=== PATIENT | female | born 1955 | race Caucasian/White ===

== ENCOUNTER 2020-05-02 12:10 | Emergency (ER) | payer BC, SELFPAY ==
[2020-05-02 13:03] VITALS: BP 207/98; PULSE 100; RESP 20; TEMP 37.1; O2SAT 96; BMI 32.3
--- NOTE | 2020-05-02 15:24 | ED.SOB ---
HPI - SOB/Dyspnea General Chief Complaint: Dyspnea Stated Complaint: SOB Time Seen by Provider: 05/02/20 15:24 Source: patient Mode of arrival: ambulatory Limitations: no limitations History of Present Illness MD elicited complaint: shortness of breath Pertinent past history: other (renal failure) Onset (ago): day(s) (today) Context: medication noncompliance (has not had her metoprolol 50mg daily for 1+ week - no Rx in pharmacy, her BPs have been in 200s) Timing: constant Severity: moderate Exacerbating factors: nothing Relieving factors: rest Known history of: diabetes Associated symptoms: denies other symptoms Treatment prior to arrival: none Related Data Allergies Allergy/AdvReac Type Severity Reaction Status Date / Time No Known Allergies Allergy Verified 05/02/20 13:09 [No Known Allergies*] Review of Systems Review of Systems: Constitutional : No Fever, No Chills ENT/Mouth : No sore throat, No Rhinorrhea, No Swallowing Difficulty Eyes: No Eye Pain, No Swelling, No Redness Cardiovascular : No Chest Pain, positive SOB, No Orthopnea, no Edema Respiratory : No Cough, No Sputum, No Wheezing, positive dyspnea Gastrointestinal : No Nausea, No Vomiting, No Diarrhea, No abdominal Pain, No Hematochezia, No Melena Genitourinary : No Dysuria, No Urinary Frequency, No Hematuria Musculoskeletal : No joint pain, No Myalgias Skin : No Skin Lesions, No rash Neuro : No Weakness, No Numbness, No Dizziness, No Headache Psych : No Anxiety/Panic, No Depression Heme/Lymph: No Bruising, No Lymphadenopathy Endocrine : No Polyuria, No Polydipsia All other systems reviewed and are negative [facility] Past Medical History Attestation statement: The following information was validated with the patient. Medical History CAD (coronary artery disease) Diabetes HTN (hypertension) Hyperlipidemia Renal failure Social History Social History (Updated 05/02/20 @ 15:37 by Nohemi Page DO) Smoking Status: Never smoker Use of substances other than those prescribed or required for medical reasons: No Advance Directives: No Advance Directives Information Provided: Yes Physical Exam Vital Signs: Vital Signs: Vital Signs Temp Pulse Resp BP Pulse Ox 05/02/20 16:47 164/83 H 05/02/20 16:31 162/77 H 05/02/20 15:59 94 170/89 H 05/02/20 15:41 97.9 F 99 16 175/88 H 96 05/02/20 13:03 98.7 F 100 20 207/98 H 96 Body Mass Index 32.3 Appearance: Alert. Oriented X3. No acute distress. Eyes: Pupils equal, round and reactive to light. ENT: Pharynx normal. Neck: Normal inspection. Neck supple. CVS: Normal heart rate and rhythm. Pulses normal. Respiratory: No respiratory distress. Breath sounds decreased bases Abdomen: Soft and nontender. Skin: Skin warm and dry. Normal skin color. Normal skin turgor. Extremities: No lower extremity edema. No calf ttp Neuro: Oriented X 3. No motor deficit. No sensory deficit. Course Course Course Narrative: trop lower than baseline, feels better, has anxiety from patients yelling in ED wants to go home has metoprolol at home MDM - SOB/Dyspnea MDM Narrative Medical decision making narrative: 65 yo female with hx of CAD s/p stent, renal failure on HD T S, HTN, HPL s/p HD today off of metoprolol x 1+ week here with dyspnea and elevated BPs at this time will obtain labs, CXR, EKG, IV labetalol Lab Data Result diagrams: 05/02/20 15:53 05/02/20 15:53 Labs: Lab Results 05/02/20 05/02/20 05/02/20 Range/Units 15:53 15:53 15:53 WBC 11.1 H (4.8-10.8) X10*3/uL RBC 3.17 L (4.20-5.50) X10*6/uL Hgb 10.3 L (12.0-16.0) g/dl Hct 30.8 L (37-47) % MCV 97.2 (80-98) fL MCH 32.5 (27.0-33.0) pg MCHC 33.4 (31.0-35.0) g/dl RDW 14.2 (11.0-16.0) % Plt Count 165 (160-400) X10*3/uL MPV 8.8 L (9.4-12.3) fL Immature Gran % (Auto) 0.5 H (0.0-0.4) % Neut % (Auto) 75.5 H (45-73) % Lymph % (Auto) 13.1 L (20-40) % [place] % (Auto) 6.7 (2-11) % Eos % (Auto) 3.9 (0-4) % Baso % (Auto) 0.3 (0-2) % Lymph # (Auto) 1.5 (1.2-4.9) X10*3/uL [place] # (Auto) 0.7 (0.1-1.2) X10*3/uL Eos # (Auto) 0.4 (0.0-0.4) X10*3/uL Baso # (Auto) 0.0 (0.0-0.2) X10*3/uL Abs Immat Gran (auto) 0.05 H (0.00-0.03) X10*3/uL Absolute Neuts (auto) 8.4 H (2.0-8.3) X10*3/uL Absolute Nucleated RBC 0.000 (0.0-0.012) X10*3/uL Nucleated RBC % (auto) 0.0 (0.0-0.2) /100WBC Hold Blue Top SEE NOTE Sodium 137 (135-145) mmol/L Potassium 3.6 (3.3-5.1) mmol/l Chloride 101 (96-108) mmol/L Carbon Dioxide 23 (22-29) mmol/L Anion Gap 17 (12-20) BUN 29 H (9-16) mg/dL Creatinine 3.21 H (0.5-1.4) mg/dL Estim Creat Clear Calc 14.5 Estimated GFR 14 Random Glucose 142 H (60-115) mg/dL Calcium 8.3 L (8.4-10.2) mg/dL Magnesium 1.9 (1.6-2.6) mg/dL Troponin I High Sens (<3.5-17.0) ng/L 05/02/20 Range/Units 15:53 WBC (4.8-10.8) X10*3/uL RBC (4.20-5.50) X10*6/uL Hgb (12.0-16.0) g/dl Hct (37-47) % MCV (80-98) fL MCH (27.0-33.0) pg MCHC (31.0-35.0) g/dl RDW (11.0-16.0) % Plt Count (160-400) X10*3/uL MPV (9.4-12.3) fL Immature Gran % (Auto) (0.0-0.4) % Neut % (Auto) (45-73) % Lymph % (Auto) (20-40) % [place] % (Auto) (2-11) % Eos % (Auto) (0-4) % Baso % (Auto) (0-2) % Lymph # (Auto) (1.2-4.9) X10*3/uL [place] # (Auto) (0.1-1.2) X10*3/uL Eos # (Auto) (0.0-0.4) X10*3/uL Baso # (Auto) (0.0-0.2) X10*3/uL Abs Immat Gran (auto) (0.00-0.03) X10*3/uL Absolute Neuts (auto) (2.0-8.3) X10*3/uL Absolute Nucleated RBC (0.0-0.012) X10*3/uL Nucleated RBC % (auto) (0.0-0.2) /100WBC Hold Blue Top Sodium (135-145) mmol/L Potassium (3.3-5.1) mmol/l Chloride (96-108) mmol/L Carbon Dioxide (22-29) mmol/L Anion Gap (12-20) BUN (9-16) mg/dL Creatinine (0.5-1.4) mg/dL Estim Creat Clear Calc Estimated GFR Random Glucose (60-115) mg/dL Calcium (8.4-10.2) mg/dL Magnesium (1.6-2.6) mg/dL Troponin I High Sens 10.3 (<3.5-17.0) ng/L ECG Data Attestation: I personally reviewed and interpreted this ECG as follows: ECG interpretation date: 05/02/20 ECG interpretation time: 15:48 Interpretation: Rate: 92 Rhythm: NSR [place]: left Normal P waves. Normal GHADA. Normal QRS complex. ST T wave : normal qTC: prolonged prior studies: no acute ischemia The study has been interpreted contemporaneously by me. . Discharge Plan Discharge Clinical Impression: HTN (hypertension), Acute dyspnea Patient Disposition: Home, Self-Care Instructions: Chronic Hypertension (ED), Dyspnea (ED) Additional Instructions: return to ED for any worsening symptoms or concerns Referrals: Betsy Goldstein MD [Primary Care Provider] - 2 days (if not better)
--- NOTE | 2020-05-02 15:25 | ECG_ITS ---
Test Reason : DYSPNEA Blood Pressure : / mmHG Vent. Rate : 092 BPM Atrial Rate : 092 BPM P-R Int : 158 ms QRS Dur : 080 ms QT Int : 400 ms P-R-T Axes : 038 005 044 degrees QTc Int : 494 ms Normal sinus rhythm Normal ECG When compared with ECG of 29-JAN-2020 04:02, Nonspecific T wave abnormality no longer evident in Anterolateral leads Heart rate has increased Referred By: Nohemi Page Electronically Signed By:KENZIE DIETRICH MD
[2020-05-02 15:41] VITALS: BP 175/88; PULSE 99; RESP 16; TEMP 36.6; O2SAT 96
--- NOTE | 2020-05-02 15:55 | XR_ITS ---
EXAMINATION: XR CHEST CLINICAL INFORMATION: Dyspnea COMPARISON: Previous chest x-ray 01/27/2020 TECHNIQUE: Frontal view of the chest was obtained. FINDINGS: The cardiac and mediastinal contours are stable. The lungs are clear. There is a right jugular dialysis catheter with tip projecting over the cavoatrial junction. There is no pleural effusion or pneumothorax. There are degenerative changes of the spine. XR/XR chest 1V IMPRESSION: No evidence for acute disease in the chest.
[2020-05-02 15:57] LABS: MANUAL DIFF FLAG NO
[2020-05-02 15:59] VITALS: BP 170/89; PULSE 94
[2020-05-02 15:59] LABS: Basophils Percent Auto 0.3 % (0-2); Eosinophils Absolute Auto 0.4 X10*3/uL (0.0-0.4); Eosinophils Percent Auto 3.9 % (0-4); Hematocrit 30.8 % (37-47); Hemoglobin 10.3 g/dl (12.0-16.0); Imm Gran Abs Auto 0.05 X10*3/uL (0.00-0.03); Imm Gran Pct Auto 0.5 % (0.0-0.4); Lymphocytes Absolute Auto 1.5 X10*3/uL (1.2-4.9); Lymphocytes Percent Auto 13.1 % (20-40); Mean Corpuscular HGB Conc 33.4 g/dl (31.0-35.0); Mean Corpuscular Hemoglobin 32.5 pg (27.0-33.0); Mean Corpuscular Volume 97.2 fL (80-98); Mean Platelet Volume 8.8 fL (9.4-12.3); Monocytes Absolute Auto 0.7 X10*3/uL (0.1-1.2); Monocytes Percent Auto 6.7 % (2-11); Neutrophils Absolute Auto 8.4 X10*3/uL (2.0-8.3); Neutrophils Percent Auto 75.5 % (45-73); Platelet Count 165 X10*3/uL (160-400); Red Blood Count 3.17 X10*6/uL (4.20-5.50); Red Cell Distribution Width 14.2 % (11.0-16.0); White Blood Count 11.1 X10*3/uL (4.8-10.8)
[2020-05-02] MEDS: Labetalol HCL 100 MG/20 ML VIAL 10 MG IVPUSH (15:59)
[2020-05-02 16:30] LABS: Anion Gap 17 (12-20); Blood Urea Nitrogen 29 mg/dL (9-16); Calcium 8.3 mg/dL (8.4-10.2); Carbon Dioxide 23 mmol/L (22-29); Chloride 101 mmol/L (96-108); Creatinine Clr Calc Pharmacy 14.5; Estimated Glomerular Filt Rate 14; Glucose Random 142 mg/dL (60-115); Magnesium 1.9 mg/dL (1.6-2.6); Potassium 3.6 mmol/l (3.3-5.1); Sodium 137 mmol/L (135-145)
[2020-05-02 16:31] VITALS: BP 162/77
[2020-05-02 16:33] LABS: Troponin-I High Sensitivity 10.3 ng/L (<3.5-17.0)
[2020-05-02 16:47] VITALS: BP 164/83
== END 2020-05-02 17:27 | disposition home or self-care (01) ==
PROVIDERS: Emergency Provider Emergency Medicine; PCP Internal Medicine
DX: R06.02 Shortness of breath (principal); I25.10 Atherosclerotic heart disease of native coronary artery without angina pectoris; I10 Essential (primary) hypertension; Z91.14 Patient's other noncompliance with medication regimen; Z79.899 Other long term (current) drug therapy
CPT/HCPCS: 36415; 71045; 80048; 83735; 84484; 85025; 93005; 96374; 99284

== ENCOUNTER 2020-12-30 14:44 | Inpatient (IN) | payer BC, MEDICARE, SELFPAY ==
[2020-12-30] VITALS (8 sets, daily range): BP systolic 136–206; BP diastolic 69–89; PULSE 77–85; RESP 15–22; TEMP 36.1–37.1; O2SAT 83–95; BMI 32.6; BMI 33.6
--- NOTE | ~2020-12-30 | XR_ITS ---
EXAMINATION: XR CHEST CLINICAL INFORMATION: Dyspnea, shortness of breath, peripheral edema, CHF COMPARISON: Chest x-ray on 05/02/2020 TECHNIQUE: 2 views of the chest were obtained. FINDINGS: Cardiomediastinal silhouette is enlarged but stable. There is increased pulmonary vascularity. There is a small right pleural effusion with adjacent atelectasis. Interval removal of the tunneled right-sided dialysis catheter. XR/XR chest 2V IMPRESSION: Mild pulmonary edema. Small right pleural effusion.
--- NOTE | 2020-12-30 15:14 | PC.NURSE ---
DIM IN BASES, PITTING EDEMA Adalberto TO KNEES. INCREASED SOB WITH EXERTION AND AFTER ATTEMPTIG TO LIE IN BED EVEN BRIEFLY. SPKING FULL SENTNECES. PALE. NO DIAPHORESIS OR CHEST PAIN. NSR ON MONITOR.
--- NOTE | 2020-12-30 15:32 | ECG_ITS ---
Test Reason : DYSPNEA Blood Pressure : / mmHG Vent. Rate : 075 BPM Atrial Rate : 075 BPM P-R Int : 178 ms QRS Dur : 080 ms QT Int : 432 ms P-R-T Axes : 025 004 028 degrees QTc Int : 482 ms Normal sinus rhythm Normal ECG When compared with ECG of 02-MAY-2020 15:38, No significant change was found Referred By: Asim Valenzuela Electronically Signed By:MEGHNA ROSENBAUM MD
[2020-12-30 15:44] LABS: MANUAL DIFF FLAG NO
[2020-12-30 15:50] LABS: Basophils Percent Auto 0.5 % (0-2); Eosinophils Absolute Auto 0.6 X10*3/uL (0.0-0.4); Eosinophils Percent Auto 6.7 % (0-4); Hemoglobin 9.3 g/dl (12.0-16.0); Imm Gran Abs Auto 0.02 X10*3/uL (0.00-0.03); Imm Gran Pct Auto 0.2 % (0.0-0.4); Lymphocytes Absolute Auto 1.3 X10*3/uL (1.2-4.9); Lymphocytes Percent Auto 15.1 % (20-40); Mean Corpuscular HGB Conc 32.1 g/dl (31.0-35.0); Mean Corpuscular Hemoglobin 32.9 pg (27.0-33.0); Mean Corpuscular Volume 102.5 fL (80-98); Mean Platelet Volume 9.6 fL (9.4-12.3); Monocytes Absolute Auto 0.7 X10*3/uL (0.1-1.2); Monocytes Percent Auto 7.4 % (2-11); Neutrophils Absolute Auto 6.2 X10*3/uL (2.0-8.3); Neutrophils Percent Auto 70.1 % (45-73); Platelet Count 153 X10*3/uL (160-400); Red Blood Count 2.83 X10*6/uL (4.20-5.50); Red Cell Distribution Width 14.2 % (11.0-16.0); White Blood Count 8.8 X10*3/uL (4.8-10.8)
[2020-12-30 16:21] LABS: Alanine Aminotransferase 44 U/L (0-31); Albumin Level 3.7 g/dL (3.5-5.0); Alkaline Phosphatase 91 U/L (39-117); Anion Gap 18 (12-20); Aspartate Amino Transferase 29 U/L (5-31); B Type Natriuretic Peptide 624 pg/mL (<100); Bilirubin Total 0.6 mg/dL (0.0-1.0); Blood Urea Nitrogen 27 mg/dL (9-16); Calcium 8.6 mg/dL (8.4-10.2); Carbon Dioxide 30 mmol/L (22-29); Chloride 96 mmol/L (96-108); Estimated Glomerular Filt Rate 10; Glucose Random 178 mg/dL (60-115); Potassium 4.3 mmol/L (3.3-5.1); Sodium 140 mmol/L (135-145); Total Protein 7.2 g/dL (6.5-8.0); Troponin-I High Sensitivity 18.2 ng/L (<3.5-17.0)
--- NOTE | 2020-12-30 16:51 | PC.NURSE ---
Pt has been sleeping, lying supine at 15 degrees in bed w/o SOB. Skin PWD.
--- NOTE | 2020-12-30 17:44 | ED_ITS ---
HPI - SOB/Dyspnea General Chief Complaint: Dyspnea Stated Complaint: sob, swelling lower extremity Time Seen by Provider: 12/30/20 15:13 Source: patient Mode of arrival: ambulatory Limitations: no limitations History of Present Illness HPI Narrative: 65-year-old female who presents emergency department for evaluation of shortness of breath, dyspnea on exertion and a hoarse voice. The patient has a history of end-stage renal disease in his dialyzed on Friday, and Friday. The patient states that she was dialyzed this morning from 5:00 a.m. to 9:00 a.m. and believes that the dialysis treatment did not take off enough fluid. she states that she went home and started to feel short of breath. She states she has also had increasing dyspnea on exertion throughout the day. She is feeling lightheaded dizzy and weak. She states that she feels like she has too much fluid on her body and has fluid in her lungs. She states that she also has a hoarse voice which she has had in the past when she is fluid overloaded. She denied fever, chills, cough, chest pain. She states that she does make urine. She denied any change in her bowel movements. At triage, the patient was found to be hypoxic with an O2 saturation of 87% on room air, tachypneic with a respiratory rate of 22 and hypertensive with a blood pressure of 206/82. She was placed on 2 L via nasal cannula in her O2 saturation improved to 96%. Related Data Home Medications Medication Instructions Recorded Confirmed B complex-vitamin C-folic acid 1 tab PO DAILY 12/30/20 12/30/20 [Nephro-Gemini] atorvastatin 1 tab PO DAILY 12/30/20 12/30/20 docusate sodium 1 cap PO DAILY 12/30/20 12/30/20 ergocalciferol (vitamin D2) 1 cap PO QWEEK 12/30/20 12/30/20 gabapentin 1 cap PO QID 12/30/20 12/30/20 insulin glargine [Lantus Solostar 19 unit SUBCUT DAILY 12/30/20 12/30/20 U-100 Insulin] isosorbide mononitrate 1 tab PO DAILY 12/30/20 12/30/20 lidocaine 1 patch TOPICAL DAILY 12/30/20 12/30/20 metoprolol tartrate 1 tab PO BID 12/30/20 12/30/20 torsemide 2 tab PO DAILY 12/30/20 12/30/20 Allergies Allergy/AdvReac Type Severity Reaction Status Date / Time No Known Allergies Allergy Verified 12/30/20 14:49 [No Known Allergies*] Review of Systems Review of Systems: Yes all other systems are reviewed and are negative [facility] Past Medical History [facility] Narrative: Social history she denies tobacco, alcohol and drug use. Medical History CAD (coronary artery disease) Diabetes HTN (hypertension) Hyperlipidemia Renal failure Social History Social History Alcohol intake: never Smoked in Last 30 Days: No Use of substances other than those prescribed or required for medical reasons: No Advance Directives: No Advance Directives Information Provided: Yes Physical Exam Vital Signs: Vital Signs: Last Vital Signs Temp 98.7 F 12/30/20 16:00 Pulse 77 12/30/20 16:00 Resp 18 12/30/20 16:00 BP 151/69 H 12/30/20 16:00 Pulse Ox 95 12/30/20 16:00 Body Mass Index 32.6 Const: General: cooperative Orientation/consciousness: oriented to person and oriented to place Limitations: no limitations HENMT: Head: Yes normal to inspection, Yes normocephalic and Yes atraumatic Ears: external ears normal General nose exam: Normal external nose present Face and sinus: Yes normal facial exam Mouth: Normal oral and palatal mucosa present Throat: Yes posterior oropharynx normal Eyes: Periorbital: periorbital findings normal Eyelids: Yes eyelids normal Conjunctivae: conjunctivae normal Sclerae: sclerae normal Corneas: corneas normal Pupils: Equal, round and reactive pupils present Direct Ophthalmoscopy: normal light reflex Neck: Neck: Yes full ROM, Yes no lymphadenopathy, Yes no meningeal signs, Yes trachea midline and Yes supple Chest: Chest palpation & inspection: normal inspection of the chest and normal palpation of entire chest wall Resp: Effort & Inspection: normal respiratory effort and able to speak in complete sentences Auscultation: rales bilateral at the base Cardio: Rate: regular rate Rhythm: regular rhythm Heart sounds: S1 normal heart sound present, S2 normal heart sound present and no murmurs GI: Inspection: Yes normal to inspection Palpation (GI): Soft to palpation, nontender, no guarding, not rigid and No hepatosplenomegaly present : General: Yes no CVA tenderness Back/Spine/Pelvis: Back: no CVA tenderness Cervical Spine: normal cervical lordosis Thoracic/Lumbar Spine: thoracic and lumbar spine normal to inspection Skin: Lesions: no lesions Rashes: no rashes Wounds: no wounds Neuro: General: oriented to person, oriented to place and no meningeal signs Cranial nerves: Yes CN's II-XII intact bilaterally and Yes Equal, round and reactive pupils present Cognition (Neuro): normal cognition Motor exam (neuro): 5/5 motor strength present throughout Extrem: Other: 1+ pitting edema, bilaterally symmetric General: Yes normal to inspection and Yes full ROM Psych: Appearance: well kempt Mental Status: mental status grossly normal Speech and movement: Normal speech and movement present Affect: normal affect Attitude: cooperative Thought process: Normal thought process present Thought content: Normal thought content present Course Course Course Narrative: 65-year-old female with a history of end-stage renal disease dialyzed on Friday, and Friday, who completed 3-1/2 hours of dialysis today and now presents with increased shortness of breath and dyspnea on exertion. On presentation the patient was hypoxic with an O2 saturation of 87% on room air and tachypneic with a respiratory rate of 22. the patient's lung exam did reveal rales at the bases and she does have 1+ pitting edema in her lower extremities which is symmetric. Chest x-ray is consistent with mild pulmonary edema. The patient's laboratory evaluation is consistent with her renal failure. She does have an elevated troponin of 18.2 with a normal EKG. I will repeat 3 hour troponin. the patient's BNP was elevated at 624. Given her hypoxia and tachypnea I believe the patient is fluid loaded , she will need to be admitted for further treatment. The patient's journalism teacher is Dr. Ganesh Vines. I will discuss the patient's presentation with the covering journalism teacher. I will also discuss the patient's presentation with the covering hospitalist. 1816 : I did discuss the patient's presentation with the covering hospitalist, Dr. Harmon and the patient will be admitted to [facility]. MDM - SOB/Dyspnea Lab Data Result diagrams: 12/30/20 15:37 12/30/20 15:37 Labs: Lab Results 12/30/20 12/30/20 12/30/20 Range/Units 15:37 15:37 15:37 WBC 8.8 (4.8-10.8) X10*3/uL RBC 2.83 L (4.20-5.50) X10*6/uL Hgb 9.3 L (12.0-16.0) g/dl Hct 29.0 L (37-47) % MCV 102.5 H (80-98) fL MCH 32.9 (27.0-33.0) pg MCHC 32.1 (31.0-35.0) g/dl RDW 14.2 (11.0-16.0) % Plt Count 153 L (160-400) X10*3/uL MPV 9.6 (9.4-12.3) fL Immature Gran % (Auto) 0.2 (0.0-0.4) % Neut % (Auto) 70.1 (45-73) % Lymph % (Auto) 15.1 L (20-40) % Saline % (Auto) 7.4 (2-11) % Eos % (Auto) 6.7 H (0-4) % Baso % (Auto) 0.5 (0-2) % Lymph # (Auto) 1.3 (1.2-4.9) X10*3/uL Saline # (Auto) 0.7 (0.1-1.2) X10*3/uL Eos # (Auto) 0.6 H (0.0-0.4) X10*3/uL Baso # (Auto) 0.0 (0.0-0.2) X10*3/uL Abs Immat Gran (auto) 0.02 (0.00-0.03) X10*3/uL Absolute Neuts (auto) 6.2 (2.0-8.3) X10*3/uL Absolute Nucleated RBC 0.000 (0.0-0.012) X10*3/uL Nucleated RBC % (auto) 0.0 (0.0-0.2) /100WBC Sodium 140 (135-145) mmol/L Potassium 4.3 (3.3-5.1) mmol/L Chloride 96 (96-108) mmol/L Carbon Dioxide 30 H (22-29) mmol/L Anion Gap 18 (12-20) BUN 27 H (9-16) mg/dL Creatinine 4.27 H* (0.5-1.4) mg/dL Estim Creat Clear Calc 11.0 Estimated GFR 10 Random Glucose 178 H (60-115) mg/dL Calcium 8.6 (8.4-10.2) mg/dL Total Bilirubin 0.6 (0.0-1.0) mg/dL AST 29 (5-31) U/L ALT 44 H (0-31) U/L Alkaline Phosphatase 91 (39-117) U/L Troponin I High Sens Cancelled B-Natriuretic Peptide (<100) pg/mL Total Protein 7.2 (6.5-8.0) g/dL Albumin 3.7 (3.5-5.0) g/dL 12/30/20 Range/Units 15:37 WBC (4.8-10.8) X10*3/uL RBC (4.20-5.50) X10*6/uL Hgb (12.0-16.0) g/dl Hct (37-47) % MCV (80-98) fL MCH (27.0-33.0) pg MCHC (31.0-35.0) g/dl RDW (11.0-16.0) % Plt Count (160-400) X10*3/uL MPV (9.4-12.3) fL Immature Gran % (Auto) (0.0-0.4) % Neut % (Auto) (45-73) % Lymph % (Auto) (20-40) % Saline % (Auto) (2-11) % Eos % (Auto) (0-4) % Baso % (Auto) (0-2) % Lymph # (Auto) (1.2-4.9) X10*3/uL Saline # (Auto) (0.1-1.2) X10*3/uL Eos # (Auto) (0.0-0.4) X10*3/uL Baso # (Auto) (0.0-0.2) X10*3/uL Abs Immat Gran (auto) (0.00-0.03) X10*3/uL Absolute Neuts (auto) (2.0-8.3) X10*3/uL Absolute Nucleated RBC (0.0-0.012) X10*3/uL Nucleated RBC % (auto) (0.0-0.2) /100WBC Sodium (135-145) mmol/L Potassium (3.3-5.1) mmol/L Chloride (96-108) mmol/L Carbon Dioxide (22-29) mmol/L Anion Gap (12-20) BUN (9-16) mg/dL Creatinine (0.5-1.4) mg/dL Estim Creat Clear Calc Estimated GFR Random Glucose (60-115) mg/dL Calcium (8.4-10.2) mg/dL Total Bilirubin (0.0-1.0) mg/dL AST (5-31) U/L ALT (0-31) U/L Alkaline Phosphatase (39-117) U/L Troponin I High Sens 18.2 H* B-Natriuretic Peptide 624 H (<100) pg/mL Total Protein (6.5-8.0) g/dL Albumin (3.5-5.0) g/dL ECG Data Attestation: I personally reviewed and interpreted this ECG as follows: Interpretation: 1601: Normal sinus rhythm rate of 75, normal PA interval, QRS duration and prolonged QTC of [address] segment elevation, no ST segment depression, no T-wave abnormalities, no PACs, no PVCs. Except for the prolonged QTC interval this is a normal EKG. Discharge Plan Discharge Clinical Impression: Hypoxia, End stage chronic kidney disease Pulmonary edema Qualifiers: Chronicity: acute Qualified Code(s): J81.0 - Acute pulmonary edema Patient Disposition: Admitted As Inpatient
--- NOTE | 2020-12-30 19:25 | PC.NURSE ---
Report rec'd from Gaby Rivas RN. Pt resting on stretcher in NAD, breathing with ease on NC. Pt aao4, baseline RA and ambulates independently at baseline. Pt denies pain/discomfort, denies SOB while at rest and on supplemental O2 via NC. Pt reports she came to ED today d/t about 1 week of dependent edema and SOB. pt rec'd HD today (normal schedule T, Th, Sat) but was unable to remove enough fluid. Pt states provider informed her that plan is for HD tomorrow as well. Dr Cline at bedside for assessment during this time, reiterates plan for admission to pt. pt expresses understanding. pt stands and pivots independenly to for transfer to bathroom per request. Pt returns to bed without incidence. Pt NSR on cardiac/vascular sonographer, VSS. Pt stretcher in low locked position, rails raised, call harrison within reach. This RN appreciates BUE +2 pitting edema, BLE +2 pitting edema and large rounded abdomen.
[2020-12-30 19:54] LABS: COVID-19 Test Negative (Negative)
[2020-12-30 20:05] LABS: Troponin-I High Sensitivity 15.9 ng/L (<3.5-17.0)
[2020-12-30 21:40] LABS: Glucose, Whole Blood 148 mg/dL (60-115)
[2020-12-30] MEDS: Atorvastatin Calcium 80 MG TABLET PO (21:43)
[2020-12-30] MEDS: Gabapentin 300 MG CAPSULE PO (21:43)
[2020-12-30] MEDS: Docusate Sodium 100 MG CAPSULE PO (21:44)
[2020-12-30] MEDS: Acetaminophen 325 MG TABLET 650 MG PO (21:44)
[2020-12-30] MEDS: Metoprolol Tartrate 100 MG TABLET PO (21:46)
[2020-12-30] MEDS: Insulin Glargine,Hum.rec.anlog 100 UNIT/ML 10 ML VIAL 19 UNIT SUBCUT (21:47)
[2020-12-30] MEDS: Heparin Sodium,Porcine 5,000 UNIT/ML VIAL 5000 UNIT SUBCUT (21:48)
[2020-12-30] MEDS: 0.9 % Sodium Chloride Flush 3 ML SYRINGE IVFLUSH (21:52)
[2020-12-31 03:50] VITALS: BP 153/70; PULSE 66; RESP 18; TEMP 36.4; O2SAT 93
[2020-12-31 05:11] LABS: MANUAL DIFF FLAG NO
[2020-12-31 05:27] LABS: Basophils Percent Auto 0.3 % (0-2); Eosinophils Absolute Auto 0.8 X10*3/uL (0.0-0.4); Eosinophils Percent Auto 8.5 % (0-4); Hematocrit 27.2 % (37-47); Hemoglobin 8.6 g/dl (12.0-16.0); Imm Gran Abs Auto 0.02 X10*3/uL (0.00-0.03); Imm Gran Pct Auto 0.2 % (0.0-0.4); Lymphocytes Absolute Auto 1.6 X10*3/uL (1.2-4.9); Lymphocytes Percent Auto 17.8 % (20-40); Mean Corpuscular HGB Conc 31.6 g/dl (31.0-35.0); Mean Corpuscular Hemoglobin 33.1 pg (27.0-33.0); Mean Corpuscular Volume 104.6 fL (80-98); Monocytes Absolute Auto 0.8 X10*3/uL (0.1-1.2); Monocytes Percent Auto 9.3 % (2-11); Neutrophils Absolute Auto 5.8 X10*3/uL (2.0-8.3); Neutrophils Percent Auto 63.9 % (45-73); Platelet Count 132 X10*3/uL (160-400); Red Cell Distribution Width 14.2 % (11.0-16.0); White Blood Count 9.1 X10*3/uL (4.8-10.8)
[2020-12-31 05:44] LABS: Anion Gap 19 (12-20); Blood Urea Nitrogen 36 mg/dL (9-16); Calcium 8.3 mg/dL (8.4-10.2); Carbon Dioxide 25 mmol/L (22-29); Chloride 100 mmol/L (96-108); Creatinine Clr Calc Pharmacy 9.1; Estimated Glomerular Filt Rate 8; Glucose Random 92 mg/dL (60-115); Potassium 4.6 mmol/L (3.3-5.1); Sodium 139 mmol/L (135-145)
[2020-12-31 05:58] VITALS: BMI 33.8
--- NOTE | 2020-12-31 06:27 | P.HPHOSP_ITS ---
History of Present Illness Date of Service: 12/30/20 Chief Complaint: shortness of breath this is a 65-year-old female with past medical history of ESRD on dialysis, CAD, diabetes, HTN, HLD who presents to the hospital with complaints of shortness of breath. Patient reports that she has been having shortness of breath for few weeks, she went to dialysis today and felt likely did not take off in off fluid off of her. As soon as she got home she continued to feel short of breath And therefore decided to come to the Hospital. Patient reports shortness of breath on exertion, she also has a hoarse voice. She reports that this usually occurs when she has too much fluid in her body. She usually gets dialysis on Friday and Friday. She was dialysis morning from 5:00 a.m. to 9:00 a.m. but believed that she did not take off enough fluid at dialysis. She denies any chest pain, no abdominal pain, no nausea or vomiting, no diarrhea constipation, no urinary symptoms as she continues to produce urine, and has lower extremity edema. Patient is also complaining of orthopnea PND. On arrival to the ED patient hemodynamically stable with vitals significant for a temp of 98.1?, heart rate of 83, respiratory rate of 22, blood pressure of 206/82, satting 87% on room air dropped to 83. Labs are significant for WBC count of 8.8, hemoglobin of 9.3 which is around her baseline, BUN of 27, creatinine of 4.27, troponin of 18.2 that decreased to 15.9, BNP of 624 Chest x-ray shows mild pulmonary edema, small right pleural effusion patient will be admitted for further management Review of Systems Review of Systems: Yes all other systems are reviewed and are negative [facility] Medical History CAD (coronary artery disease) Diabetes HTN (hypertension) Hyperlipidemia Renal failure Social History Household Members: None Housing: House Alcohol intake: never Patient Tobacco Use Status: Never used Tobacco Smoked in Last 30 Days: No Use of substances other than those prescribed or required for medical reasons: No Currently Displaying Signs/Symptoms of Drug Intoxication Withdrawal: No Have you been hit, kicked, punched, or otherwise hurt by someone within the past year? If so, by whom?: No Do you feel safe in your current relationship?: No Current Relationship Is there a partner from a previous relationship who is making you feel unsafe now?: No Are you made to feel afraid or neglected: No Advance Directives: No Advance Directives Information Provided: Yes Do you have thoughts of harming others: None Do you have a plan to hurt others: No Plan Recently lost weight without trying: No Nutrition Risks: No Nutritional Risk Meds Allergies Allergy/AdvReac Type Severity Reaction Status Date / Time No Known Allergies Allergy Verified 12/30/20 14:49 [No Known Allergies*] Active Medications: Current Medications Generic Name Dose Route Start Last Admin Trade Name Freq PRN Reason Stop Dose Admin Acetaminophen 650 mg 12/30/20 20:21 12/30/20 21:44 Acetaminophen 325 Mg Tablet PO 650 mg Q6H PRN Administration Pain, Mild (Pain Scale 1-3) Atorvastatin Calcium 80 mg 12/30/20 20:21 12/30/20 21:43 Atorvastatin Calcium 80 Mg Tablet PO 80 mg DAILY [facility] Administration Docusate Sodium 100 mg 12/31/20 09:00 Docusate Sodium 100 Mg Capsule PO DAILY [facility] Docusate Sodium 100 mg 12/30/20 20:21 12/30/20 21:44 Docusate Sodium 100 Mg Capsule PO 100 mg DAILY PRN Administration Constipation Ergocalciferol 1,250 mcg 12/30/20 20:21 Ergocalciferol (Vitamin D2) 1,250 Mcg Capsule PO Q7D [facility] Furosemide 40 mg 12/31/20 09:00 Furosemide 40 Mg/4 Ml Vial IVPUSH BID@0900,1800 [facility] Protocol Gabapentin 300 mg 12/30/20 21:00 12/30/20 21:43 Gabapentin 300 Mg Capsule PO 300 mg QID [facility] Administration Heparin Sodium (Porcine) 5,000 unit 12/30/20 20:21 12/30/20 21:48 Heparin Sodium,Porcine 5,000 Unit/Ml Vial SUBCUT 5,000 unit Q12H [facility] Administration Insulin Glargine 19 unit 12/30/20 20:21 12/30/20 21:47 Insulin Glargine,Hum.Rec.Anlog 100 Unit/Ml 10 Ml Vial SUBCUT 19 unit DAILY [facility] Administration Isosorbide Mononitrate 30 mg 12/31/20 09:00 Isosorbide Mononitrate 30 Mg Tab.Er.24h PO DAILY [facility] Protocol Metoprolol Tartrate 100 mg 12/30/20 21:00 12/30/20 21:46 Metoprolol Tartrate 100 Mg Tablet PO 100 mg BID [facility] Administration Protocol Ondansetron HCl 4 mg 12/30/20 20:21 Ondansetron Hcl 4 Mg/2 Ml Vial IVPUSH Q8H PRN Nausea and Vomiting Sodium Chloride 3 ml 12/31/20 00:00 12/30/20 21:52 0.9 % Sodium Chloride Flush 3 Ml Syringe IVFLUSH 3 ml QSHIFT [facility] Administration Vitamin B Complex/Folic Acid 1 cap 12/31/20 09:00 B Complex W-C No.20/Folic Acid Capsule PO DAILY [facility] Home Medications Medication Instructions Recorded Confirmed Last Taken Type B complex-vitamin C-folic acid 1 tab PO DAILY 12/30/20 12/30/20 Unknown History [Nephro-Gemini] atorvastatin 1 tab PO DAILY 12/30/20 12/30/20 12/29/20 History docusate sodium 1 cap PO DAILY 12/30/20 12/30/20 12/29/20 History ergocalciferol (vitamin D2) 1 cap PO QWEEK 12/30/20 12/30/20 12/24/20 History gabapentin 1 cap PO QID 12/30/20 12/30/20 12/30/20 History insulin glargine [Lantus Solostar 19 unit SUBCUT DAILY 12/30/20 12/30/20 12/29/20 History U-100 Insulin] isosorbide mononitrate 1 tab PO DAILY 12/30/20 12/30/20 12/30/20 History lidocaine 1 patch TOPICAL DAILY 12/30/20 12/30/20 Unknown History metoprolol tartrate 1 tab PO BID 12/30/20 12/30/20 12/29/20 History torsemide 2 tab PO DAILY 12/30/20 12/30/20 12/30/20 History Physical Exam Vital Signs and Narrative: Vital Signs: Last Vital Signs Temp 97.6 F 12/31/20 03:50 Pulse 66 12/31/20 03:50 Resp 18 12/31/20 03:50 BP 153/70 H 12/31/20 03:50 Pulse Ox 93 12/31/20 03:50 Body Mass Index 33.8 Const: General: cooperative and no acute distress Orientation/consciousness: patient oriented x3 Eyes: General: appearance normal, both eyes and all related structures Resp: Effort & Inspection: normal respiratory effort and able to speak in complete sentences Auscultation: clear to auscultation bilaterally Cardio: Rate: regular rate Rhythm: regular rhythm GI: Palpation (GI): Soft to palpation Auscultation: normal bowel sounds Skin: General skin exam: no rashes or lesions noted Neuro: General: patient oriented x3 Cognition (Neuro): normal cognition Extrem: Other: 1+ lower extremity edema bilaterally General: Yes normal to inspection Results Labs CBC and Chem 7: 12/31/20 04:10 12/31/20 04:10 Labs: Laboratory Results - last 24 hr 12/30/20 12/30/20 12/30/20 15:37 15:37 15:37 MCV 102.5 H MCH 32.9 MCHC 32.1 RDW 14.2 Plt Count 153 L MPV 9.6 Immature Gran % (Auto) 0.2 Neut % (Auto) 70.1 Lymph % (Auto) 15.1 L [place] % (Auto) 7.4 Eos % (Auto) 6.7 H Baso % (Auto) 0.5 Lymph # (Auto) 1.3 [place] # (Auto) 0.7 Eos # (Auto) 0.6 H Baso # (Auto) 0.0 Abs Immat Gran (auto) 0.02 Absolute Neuts (auto) 6.2 Absolute Nucleated RBC 0.000 Nucleated RBC % (auto) 0.0 Anion Gap 18 Estim Creat Clear Calc 11.0 Estimated GFR 10 POC Glucose Random Glucose 178 H Calcium 8.6 Total Bilirubin 0.6 AST 29 ALT 44 H Alkaline Phosphatase 91 Troponin I High Sens Cancelled B-Natriuretic Peptide Total Protein 7.2 Albumin 3.7 COVID-19 ([facility]) COVID-19 Clin Com 12/30/20 12/30/20 12/30/20 15:37 19:16 19:33 MCV MCH MCHC RDW Plt Count MPV Immature Gran % (Auto) Neut % (Auto) Lymph % (Auto) [place] % (Auto) Eos % (Auto) Baso % (Auto) Lymph # (Auto) [place] # (Auto) Eos # (Auto) Baso # (Auto) Abs Immat Gran (auto) Absolute Neuts (auto) Absolute Nucleated RBC Nucleated RBC % (auto) Anion Gap Estim Creat Clear Calc Estimated GFR POC Glucose Random Glucose Calcium Total Bilirubin AST ALT Alkaline Phosphatase Troponin I High Sens 18.2 H* 15.9 B-Natriuretic Peptide 624 H Total Protein Albumin COVID-19 ([facility]) Negative COVID-19 Clin Com See Note 12/30/20 12/31/20 12/31/20 21:35 04:10 04:10 MCV 104.6 H MCH 33.1 H MCHC 31.6 RDW 14.2 Plt Count 132 L MPV 10.0 Immature Gran % (Auto) 0.2 Neut % (Auto) 63.9 Lymph % (Auto) 17.8 L [place] % (Auto) 9.3 Eos % (Auto) 8.5 H Baso % (Auto) 0.3 Lymph # (Auto) 1.6 [place] # (Auto) 0.8 Eos # (Auto) 0.8 H Baso # (Auto) 0.0 Abs Immat Gran (auto) 0.02 Absolute Neuts (auto) 5.8 Absolute Nucleated RBC 0.000 Nucleated RBC % (auto) 0.0 Anion Gap 19 Estim Creat Clear Calc 9.1 Estimated GFR 8 POC Glucose 148 H Random Glucose 92 D Calcium 8.3 L Total Bilirubin AST ALT Alkaline Phosphatase Troponin I High Sens B-Natriuretic Peptide Total Protein Albumin COVID-19 ([facility]) COVID-19 Clin Com Imaging Radiologist's Impressions: Impressions Chest X-Ray 12/30/20 15:33 IMPRESSION: Mild pulmonary edema. Small right pleural effusion. Assessment and Plan (1) Pulmonary edema: Qualifiers: Chronicity: acute Qualified Code(s): J81.0 - Acute pulmonary edema Status: Acute (2) CHF exacerbation: Status: Acute (3) End stage chronic kidney disease: Status: Acute (4) Acute on chronic respiratory failure with hypoxia: Status: Acute (5) Hypertensive crisis: Status: Acute this is a 65-year-old female with end-stage renal disease on dialysis who presents the hospital shortness of breath # dyspnea secondary to CHF exacerbation - patient has elevated BNP, evidence of pulmonary congestion on chest x-ray, dyspnea on exertion, orthopnea PND lower extremity edema - patient although on dialysis continues to produce urine - she is on torsemide at home and reports compliance - at this time will start her on IV Lasix 40 b.i.d. -low-sodium diet, daily weight, strict I&O - echocardiogram - cardiology consult # acute hypoxic respiratory failure - secondary to above - no evidence of pneumonia - continue O2 as required - tree CHF as above # hypertensive crisis - patient presented with SBP of 209 - this may have contributed to her CHF exacerbation - blood pressure improved - does not appear to be on much antihypertensive except metoprolol on torsemide - will need follow-up outpatient # diabetes - continue home insulin - will add low-dose sliding scale insulin - diabetic diet DVT prophylaxis: Heparin subQ Quality Stroke Does the patient have a stroke diagnosis?: No VTE Prior VTE?: No VTE Risk Level:: Medical - moderate - high VTE Device Contraindication: Treatment Not Indicated VTE Drug Contraindication: N/A - Med Ordered
[2020-12-31 07:09] LABS: Glucose, Whole Blood 91 mg/dL (60-115)
[2020-12-31 07:29] VITALS: BP 194/91; PULSE 68; RESP 18; TEMP 36.6; O2SAT 93
[2020-12-31 08:41] VITALS: BP 194/91; PULSE 68
[2020-12-31] MEDS: Isosorbide Mononitrate 30 MG TAB.ER.24H PO (08:41)
[2020-12-31] MEDS: Metoprolol Tartrate 100 MG TABLET PO (08:41)
[2020-12-31] MEDS: Atorvastatin Calcium 80 MG TABLET PO (08:41)
[2020-12-31] MEDS: Gabapentin 300 MG CAPSULE PO (08:41)
[2020-12-31] MEDS: amLODIPine Besylate 5 MG TABLET PO (08:41)
[2020-12-31] MEDS: Furosemide 40 MG/4 ML VIAL IVPUSH (08:42)
[2020-12-31] MEDS: Ergocalciferol (Vitamin D2) 1,250 MCG CAPSULE 1250 MCG PO (08:42)
[2020-12-31] MEDS: Heparin Sodium,Porcine 5,000 UNIT/ML VIAL 5000 UNIT SUBCUT (08:42)
[2020-12-31] MEDS: 0.9 % Sodium Chloride Flush 3 ML SYRINGE IVFLUSH (08:42)
--- NOTE | 2020-12-31 10:47 | PM.CNNEP ---
History of Present Illness Reason for Consult Consult date: 12/31/20 Reason for consult: ESRD Management Requesting physician: Joanna Harmon Chief Complaint Chief complaint: Hypoxic resp failure History of Present Illness Narrative: Ms. Shy Ryan is a 65-year-old female with past medical histor of ESRD (2/2 biopsy proven diabetic nephropathy, IgA nephropathy, and chronic TMA, biopsy 01/2020), Nephrolithiasis (left hydroureteronephrosis 12/2019) CAD, T2DM, And HTN who presents to [facility] on 12/30/2020 with dyspnea despite dialysis compliance. She presented in hypertensive emergency with flash pulmonary edema. Her CXR is c/w pulmonary edema. Her BPs remain elevated systolics 180s. She is aggreeable to extra session of HD to assist in volume removal. We discussed ultrafiltration as a modality rather than HD, given it will optimize volume removal and that her metabolics are in good range. Of note, Ms. Ryan dialyzes TTS at [facility] [place]. Her dialysis doctor is Dr Vasquez. Review of Systems Review of Systems Yes all other systems are reviewed and are negative [facility] Past Medical History Medical History CAD (coronary artery disease) Diabetes HTN (hypertension) Hyperlipidemia Renal failure Social History Social History Household Members: None Housing: House Alcohol intake: never Patient Tobacco Use Status: Never used Tobacco Smoked in Last 30 Days: No Use of substances other than those prescribed or required for medical reasons: No Currently Displaying Signs/Symptoms of Drug Intoxication Withdrawal: No Have you been hit, kicked, punched, or otherwise hurt by someone within the past year? If so, by whom?: No Do you feel safe in your current relationship?: No Current Relationship Is there a partner from a previous relationship who is making you feel unsafe now?: No Are you made to feel afraid or neglected: No Advance Directives: No Advance Directives Information Provided: Yes Do you have thoughts of harming others: None Do you have a plan to hurt others: No Plan Recently lost weight without trying: No Nutrition Risks: No Nutritional Risk Meds Allergies Allergy/AdvReac Type Severity Reaction Status Date / Time No Known Allergies Allergy Verified 12/30/20 14:49 [No Known Allergies*] Active Medications: Current Medications Generic Name Dose Route Start Last Admin Trade Name Jacquelin PRN Reason Stop Dose Admin Acetaminophen 650 mg 12/30/20 20:21 12/30/20 21:44 Acetaminophen 325 Mg Tablet PO 650 mg Q6H PRN Administration Pain, Mild (Pain Scale 1-3) Amlodipine Besylate 5 mg 12/31/20 08:25 12/31/20 08:41 Amlodipine Besylate 5 Mg Tablet PO 5 mg DAILY [facility] Administration Protocol Atorvastatin Calcium 80 mg 12/30/20 20:21 12/31/20 08:41 Atorvastatin Calcium 80 Mg Tablet PO 80 mg DAILY [facility] Administration Docusate Sodium 100 mg 12/31/20 09:00 12/31/20 08:43 Docusate Sodium 100 Mg Capsule PO Not Given DAILY [facility] Docusate Sodium 100 mg 12/30/20 20:21 12/30/20 21:44 Docusate Sodium 100 Mg Capsule PO 100 mg DAILY PRN Administration Constipation Ergocalciferol 1,250 mcg 12/31/20 09:00 12/31/20 08:42 Ergocalciferol (Vitamin D2) 1,250 Mcg Capsule PO 1,250 mcg [place]@0900 [facility] Administration Furosemide 40 mg 12/31/20 09:00 12/31/20 08:42 Furosemide 40 Mg/4 Ml Vial IVPUSH 40 mg BID@0900,1800 [facility] Administration Protocol Gabapentin 300 mg 12/30/20 21:00 12/31/20 08:41 Gabapentin 300 Mg Capsule PO 300 mg QID [facility] Administration Heparin Sodium (Porcine) 5,000 unit 12/30/20 20:21 12/31/20 08:42 Heparin Sodium,Porcine 5,000 Unit/Ml Vial SUBCUT 5,000 unit Q12H [facility] Administration Insulin Glargine 19 unit 12/31/20 21:00 Insulin Glargine,Hum.Rec.Anlog 100 Unit/Ml 10 Ml Vial SUBCUT BEDTIME [facility] Insulin Human Lispro 0 unit 12/31/20 07:30 12/31/20 07:11 Insulin Lispro 100 Unit/Ml 3 Ml Vial SUBCUT Not Given QIDACHS [facility] Protocol Isosorbide Mononitrate 30 mg 12/31/20 09:00 12/31/20 08:41 Isosorbide Mononitrate 30 Mg Tab.Er.24h PO 30 mg DAILY [facility] Administration Protocol Metoprolol Tartrate 100 mg 12/30/20 21:00 12/31/20 08:41 Metoprolol Tartrate 100 Mg Tablet PO 100 mg BID [facility] Administration Protocol Ondansetron HCl 4 mg 12/30/20 20:21 Ondansetron Hcl 4 Mg/2 Ml Vial IVPUSH Q8H PRN Nausea and Vomiting Sodium Chloride 3 ml 12/31/20 00:00 12/31/20 08:42 0.9 % Sodium Chloride Flush 3 Ml Syringe IVFLUSH 3 ml QSHIFT [facility] Administration Vitamin B Complex/Folic Acid 1 cap 12/31/20 09:00 12/31/20 08:41 B Complex W-C No.20/Folic Acid Capsule PO 1 cap DAILY [facility] Administration Home Medications Medication Instructions Recorded Confirmed Last Taken Type B complex-vitamin C-folic acid 1 tab PO DAILY 12/30/20 12/30/20 Unknown History [Nephro-Gemini] atorvastatin 1 tab PO DAILY 12/30/20 12/30/20 12/29/20 History docusate sodium 1 cap PO DAILY 12/30/20 12/30/20 12/29/20 History ergocalciferol (vitamin D2) 1 cap PO QWEEK 12/30/20 12/30/20 12/24/20 History gabapentin 1 cap PO QID 12/30/20 12/30/20 12/30/20 History insulin glargine [Lantus Solostar 19 unit SUBCUT DAILY 12/30/20 12/30/20 12/29/20 History U-100 Insulin] isosorbide mononitrate 1 tab PO DAILY 12/30/20 12/30/20 12/30/20 History lidocaine 1 patch TOPICAL DAILY 12/30/20 12/30/20 Unknown History metoprolol tartrate 1 tab PO BID 12/30/20 12/30/20 12/29/20 History torsemide 2 tab PO DAILY 12/30/20 12/30/20 12/30/20 History Physical Exam Vital Signs: Last Vital Signs Temp 97.8 F 12/31/20 07:29 Pulse 68 12/31/20 08:41 Resp 18 12/31/20 07:29 BP 194/91 H 12/31/20 08:41 Pulse Ox 93 12/31/20 07:29 Body Mass Index 33.8 Const General: cooperative and no acute distress Orientation/consciousness: oriented to person, oriented to place and patient oriented x3 Limitations: no limitations HENMT Head: Yes normal to inspection, Yes normocephalic and Yes atraumatic Ears: external ears normal General nose exam: Normal external nose present Face and sinus: Yes normal facial exam Mouth: Normal oral and palatal mucosa present Throat: Yes posterior oropharynx normal Eyes General: appearance normal, both eyes and all related structures Periorbital: periorbital findings normal Eyelids: Yes eyelids normal Conjunctivae: conjunctivae normal Sclerae: sclerae normal Corneas: corneas normal Pupils: Equal, round and reactive pupils present Direct Ophthalmoscopy: normal light reflex Neck Neck: Yes full ROM, Yes no lymphadenopathy, Yes no meningeal signs, Yes trachea midline and Yes supple Chest Chest palpation & inspection: normal inspection of the chest and normal palpation of entire chest wall Resp Effort & Inspection: normal respiratory effort and able to speak in complete sentences Auscultation: clear to auscultation bilaterally and rales bilateral at the base Cardio Rate: regular rate Rhythm: regular rhythm Heart sounds: S1 normal heart sound present, S2 normal heart sound present and no murmurs GI Inspection: Yes normal to inspection Palpation (GI): Soft to palpation, nontender, no guarding, not rigid and No hepatosplenomegaly present Auscultation: normal bowel sounds General: Yes no CVA tenderness Back/Spine/Pelvis Back: no CVA tenderness Cervical Spine: normal cervical lordosis Thoracic/Lumbar Spine: thoracic and lumbar spine normal to inspection Skin General skin exam: no rashes or lesions noted Lesions: no lesions Rashes: no rashes Wounds: no wounds Neuro General: oriented to person, oriented to place, patient oriented x3 and no meningeal signs Cranial nerves: Yes CN's II-XII intact bilaterally and Yes Equal, round and reactive pupils present Cognition (Neuro): normal cognition Motor exam (neuro): 5/5 motor strength present throughout Extrem Other: 1+ lower extremity edema bilaterally General: Yes normal to inspection and Yes full ROM Psych Appearance: well kempt Mental Status: mental status grossly normal Speech and movement: Normal speech and movement present Affect: normal affect Attitude: cooperative Thought process: Normal thought process present Thought content: Normal thought content present Results Lab Results Result Diagrams: 12/31/20 04:10 12/31/20 04:10 Lab results: Chemistry 12/30/20 12/31/20 15:37 04:10 Sodium 140 139 Potassium 4.3 4.6 Carbon Dioxide 30 H 25 BUN 27 H 36 H Creatinine 4.27 H* 5.21 H* Calcium 8.6 8.3 L Hematology 12/30/20 12/31/20 15:37 04:10 WBC 8.8 9.1 Hgb 9.3 L 8.6 L Plt Count 153 L 132 L Assessment and Plan (1) Pulmonary edema: Qualifiers: Chronicity: acute Qualified Code(s): J81.0 - Acute pulmonary edema Status: Acute (2) CHF exacerbation: Status: Acute (3) End stage chronic kidney disease: Status: Acute (4) Acute on chronic respiratory failure with hypoxia: Status: Acute (5) Hypertensive crisis: Status: Acute Ms. Shy Ryan is a 65-year-old female with past medical histor of ESRD (2/2 biopsy proven diabetic nephropathy, IgA nephropathy, and chronic TMA, biopsy 01/2020), Nephrolithiasis (left hydroureteronephrosis 12/2019) CAD, T2DM, And HTN who presents to [facility] on 12/30/2020 with dyspnea despite dialysis compliance. 1. ESRD Hypertensive Emergency leading to pulmonary edema acute hypoxic respiratory failure Patient is prone to overload and HTN given her IgA disease Plan: - please increase Imdur to 60mg - please continue metoprolol 100mg BID - discharge on torsemide 40mg BID - ok to c/w amlodipine if needed - will perform ISO UF session today for 3L volume removal over 2 hours. - ok for discharge after dialysis - metabolics removed no need for hemofiltration. Jossue Dias, I am on TIGER Procedures Date of Service Date of Service: 12/31/20
[2020-12-31 11:07] LABS: Glucose, Whole Blood 93 mg/dL (60-115)
[2020-12-31 11:33] VITALS: BP 141/66; PULSE 64; RESP 19; TEMP 36.4; O2SAT 91
--- NOTE | 2020-12-31 11:59 | P.CONCA_ITS ---
History of Present Illness History of Present Illness Date of Service: 12/31/20 Requesting physician: Marina Cline Consult reason: hypertension and congestive heart failure Chief complaint: Hypoxic resp failure Narrative: I was requested to see Shy in cardiology consultation today for shortness of breath and congestive heart failure with hypertensive urgency. Patient with multiple medical issues in the past and noncompliant with follow-up visits. Last seen by us in the hospital and was supposed to come for follow-up but did not saying that she was feeling well. She is currently on hemodialysis Tuesdays and Saturdays. She takes her metoprolol on non dialysis days and on dialysis days as per her she does not take metoprolol because her blood pressures is on the lower side. Yesterday after completing her dialysis session she still felt that she was fluid overloaded bilateral leg edema and was not able to breathe. She therefore came to the emergency room. In the emergency room she was noted to be in congestive heart failure with radiographic as well as BNP evidence of decompensated congestive heart failure clinically noted to have fluid overload. She was supposed to get dialysis yesterday but she says teja colberturesed by herself and this morning she does not have leg edema and she feels a lot better. She still noted to be significantly hypertensive in the morning. The blood pressure just at 11:33 is 141/66. Generally she says a blood pressure is not well controlled and his very labile and difficult to control. She has prior history of CAD with multivessel PCI. Has not had follow-up in a while. Hypertension diabetes, hyperlipidemia, end-stage renal disease. Review of Systems Constitutional: Constitutional: Reports no additional constitutional complaints Cardiovascular: Cardiovascular: Denies chest pain, Reports leg edema, Denies lightheadedness, Denies Loss of Consciousness, Denies palpitations and Reports dyspnea on exertion Respiratory: Respiratory: Reports no additional respiratory complaints and Reports dyspnea on exertion Gastrointestinal: Gastrointestinal: Reports no additional gastrointestinal complaints Genitourinary: Genitourinary: Reports no additional female genitourinary complaints Musculoskeletal: Musculoskeletal: Reports no additional musculoskeletal complaints Neurologic: Reports system reviewed and no additional complaints, except as documented Psychiatric: Psychiatric: Reports no additional psychiatric complaints Endocrine: Endocrine: Reports no additional endocrine complaints and Denies palpitations PMFSH Past Medical History Medical History CAD (coronary artery disease) Diabetes HTN (hypertension) Hyperlipidemia Renal failure Social History Social History Household Members: None Housing: House Alcohol intake: never Patient Tobacco Use Status: Never used Tobacco Smoked in Last 30 Days: No Use of substances other than those prescribed or required for medical reasons: No Currently Displaying Signs/Symptoms of Drug Intoxication Withdrawal: No Have you been hit, kicked, punched, or otherwise hurt by someone within the past year? If so, by whom?: No Do you feel safe in your current relationship?: No Current Relationship Is there a partner from a previous relationship who is making you feel unsafe now?: No Are you made to feel afraid or neglected: No Advance Directives: No Advance Directives Information Provided: Yes Do you have thoughts of harming others: None Do you have a plan to hurt others: No Plan Recently lost weight without trying: No Nutrition Risks: No Nutritional Risk Meds Allergies Allergy/AdvReac Type Severity Reaction Status Date / Time No Known Allergies Allergy Verified 12/30/20 14:49 [No Known Allergies*] Active Medications: Current Medications Generic Name Dose Route Start Last Admin Trade Name Freq PRN Reason Stop Dose Admin Acetaminophen 650 mg 12/30/20 20:21 12/30/20 21:44 Acetaminophen 325 Mg Tablet PO 650 mg Q6H PRN Administration Pain, Mild (Pain Scale 1-3) Amlodipine Besylate 5 mg 12/31/20 08:25 12/31/20 08:41 Amlodipine Besylate 5 Mg Tablet PO 5 mg DAILY AMBAR Administration Protocol Atorvastatin Calcium 80 mg 12/30/20 20:21 12/31/20 08:41 Atorvastatin Calcium 80 Mg Tablet PO 80 mg DAILY AMBAR Administration Docusate Sodium 100 mg 12/31/20 09:00 12/31/20 08:43 Docusate Sodium 100 Mg Capsule PO Not Given DAILY AMBAR Docusate Sodium 100 mg 12/30/20 20:21 12/30/20 21:44 Docusate Sodium 100 Mg Capsule PO 100 mg DAILY PRN Administration Constipation Ergocalciferol 1,250 mcg 12/31/20 09:00 12/31/20 08:42 Ergocalciferol (Vitamin D2) 1,250 Mcg Capsule PO 1,250 mcg [place]@0900 AMBAR Administration Furosemide 40 mg 12/31/20 09:00 12/31/20 08:42 Furosemide 40 Mg/4 Ml Vial IVPUSH 40 mg BID@0900,1800 [facility] Administration Protocol Gabapentin 300 mg 12/30/20 21:00 12/31/20 08:41 Gabapentin 300 Mg Capsule PO 300 mg QID [facility] Administration Heparin Sodium (Porcine) 5,000 unit 12/30/20 20:21 12/31/20 08:42 Heparin Sodium,Porcine 5,000 Unit/Ml Vial SUBCUT 5,000 unit Q12H [facility]BAR Administration Insulin Glargine 19 unit 12/31/20 21:00 Insulin Glargine,Hum.Rec.Anlog 100 Unit/Ml 10 Ml Vial SUBCUT BEDTIME [facility] Insulin Human Lispro 0 unit 12/31/20 07:30 12/31/20 11:14 Insulin Lispro 100 Unit/Ml 3 Ml Vial SUBCUT Not Given QIDACHS [facility] Protocol Isosorbide Mononitrate 30 mg 12/31/20 09:00 12/31/20 08:41 Isosorbide Mononitrate 30 Mg Tab.Er.24h PO 30 mg DAILY [facility] Administration Protocol Metoprolol Tartrate 100 mg 12/30/20 21:00 12/31/20 08:41 Metoprolol Tartrate 100 Mg Tablet PO 100 mg BID [facility] Administration Protocol Ondansetron HCl 4 mg 12/30/20 20:21 Ondansetron Hcl 4 Mg/2 Ml Vial IVPUSH Q8H PRN Nausea and Vomiting Sodium Chloride 3 ml 12/31/20 00:00 12/31/20 08:42 0.9 % Sodium Chloride Flush 3 Ml Syringe IVFLUSH 3 ml QSHIFT [facility] Administration Vitamin B Complex/Folic Acid 1 cap 12/31/20 09:00 12/31/20 08:41 B Complex W-C No.20/Folic Acid Capsule PO 1 cap DAILY [facility] Administration Home Medications Medication Instructions Recorded Confirmed Last Taken Type B complex-vitamin C-folic acid 1 tab PO DAILY 12/30/20 12/30/20 Unknown History [Nephro-Gemini] atorvastatin 1 tab PO DAILY 12/30/20 12/30/20 12/29/20 History docusate sodium 1 cap PO DAILY 12/30/20 12/30/20 12/29/20 History ergocalciferol (vitamin D2) 1 cap PO QWEEK 12/30/20 12/30/20 12/24/20 History gabapentin 1 cap PO QID 12/30/20 12/30/20 12/30/20 History insulin glargine [Lantus Solostar 19 unit SUBCUT DAILY 12/30/20 12/30/20 12/29/20 History U-100 Insulin] isosorbide mononitrate 1 tab PO DAILY 12/30/20 12/30/20 12/30/20 History lidocaine 1 patch TOPICAL DAILY 12/30/20 12/30/20 Unknown History metoprolol tartrate 1 tab PO BID 12/30/20 12/30/20 12/29/20 History torsemide 2 tab PO DAILY 12/30/20 12/30/20 12/30/20 History Physical Exam Vital Signs: Vital Signs: Last Vital Signs Temp 97.5 F 12/31/20 11:33 Pulse 64 12/31/20 11:33 Resp 19 12/31/20 11:33 BP 141/66 H 12/31/20 11:33 Pulse Ox 91 L 12/31/20 11:33 Body Mass Index 33.8 Const: General: cooperative, comfortable, alert, awake and acute distress mild and respiratory Nutritional Appearance: obese Orientation/consciousness: patient oriented x3 Limitations: no limitations and other limitations HENMT: Head: Yes normocephalic and Yes atraumatic Neck: Neck: Yes trachea midline, Yes supple and Yes no JVD Resp: Effort & Inspection: normal respiratory effort Auscultation: clear to auscultation bilaterally and diminished lung sounds bilateral in the lower lung [place] Cardio: Jugular venous distension: no JVD Palpation: normal PMI Rate: regular rate Rhythm: regular rhythm Heart sounds: S1 normal heart sound present, S2 normal heart sound present, no click, no gallops, no murmurs and Other heart sounds present ( S4 present) GI: Auscultation: normal bowel sounds Skin: General skin exam: no rashes or lesions noted Neuro: General: patient oriented x3 and no focal motor deficits Extrem: General: Yes no clubbing, cyanosis or edema Psych: Appearance: grossly normal Results Labs and Meds Result diagrams: 12/31/20 04:10 12/31/20 04:10 Lab results: Laboratory Results - last 24 hr 12/30/20 12/30/20 12/30/20 15:37 15:37 15:37 WBC 8.8 RBC 2.83 L Hgb 9.3 L Hct 29.0 L MCV 102.5 H MCH 32.9 MCHC 32.1 RDW 14.2 Plt Count 153 L MPV 9.6 Immature Gran % (Auto) 0.2 Neut % (Auto) 70.1 Lymph % (Auto) 15.1 L [place] % (Auto) 7.4 Eos % (Auto) 6.7 H Baso % (Auto) 0.5 Lymph # (Auto) 1.3 [place] # (Auto) 0.7 Eos # (Auto) 0.6 H Baso # (Auto) 0.0 Abs Immat Gran (auto) 0.02 Absolute Neuts (auto) 6.2 Absolute Nucleated RBC 0.000 Nucleated RBC % (auto) 0.0 Sodium 140 Potassium 4.3 Chloride 96 Carbon Dioxide 30 H Anion Gap 18 BUN 27 H Creatinine 4.27 H* Estim Creat Clear Calc 11.0 Estimated GFR 10 POC Glucose Random Glucose 178 H Calcium 8.6 Total Bilirubin 0.6 AST 29 ALT 44 H Alkaline Phosphatase 91 Troponin I High Sens Cancelled B-Natriuretic Peptide Total Protein 7.2 Albumin 3.7 COVID-19 ([facility]) COVID-[facility] 12/30/20 12/30/20 12/30/20 15:37 19:16 19:33 WBC RBC Hgb Hct MCV MCH MCHC RDW Plt Count MPV Immature Gran % (Auto) Neut % (Auto) Lymph % (Auto) [place] % (Auto) Eos % (Auto) Baso % (Auto) Lymph # (Auto) [place] # (Auto) Eos # (Auto) Baso # (Auto) Abs Immat Gran (auto) Absolute Neuts (auto) Absolute Nucleated RBC Nucleated RBC % (auto) Sodium Potassium Chloride Carbon Dioxide Anion Gap BUN Creatinine Estim Creat Clear Calc Estimated GFR POC Glucose Random Glucose Calcium Total Bilirubin AST ALT Alkaline Phosphatase Troponin I High Sens 18.2 H* 15.9 B-Natriuretic Peptide 624 H Total Protein Albumin COVID-19 ([facility]) Negative COVID-[employer] Clin Com See Note 12/30/20 12/31/20 12/31/20 21:35 04:10 04:10 WBC 9.1 RBC 2.60 L Hgb 8.6 L Hct 27.2 L MCV 104.6 H MCH 33.1 H MCHC 31.6 RDW 14.2 Plt Count 132 L MPV 10.0 Immature Gran % (Auto) 0.2 Neut % (Auto) 63.9 Lymph % (Auto) 17.8 L [place] % (Auto) 9.3 Eos % (Auto) 8.5 H Baso % (Auto) 0.3 Lymph # (Auto) 1.6 [place] # (Auto) 0.8 Eos # (Auto) 0.8 H Baso # (Auto) 0.0 Abs Immat Gran (auto) 0.02 Absolute Neuts (auto) 5.8 Absolute Nucleated RBC 0.000 Nucleated RBC % (auto) 0.0 Sodium 139 Potassium 4.6 Chloride 100 Carbon Dioxide 25 Anion Gap 19 BUN 36 H Creatinine 5.21 H* Estim Creat Clear Calc 9.1 Estimated GFR 8 POC Glucose 148 H Random Glucose 92 D Calcium 8.3 L Total Bilirubin AST ALT Alkaline Phosphatase Troponin I High Sens B-Natriuretic Peptide Total Protein Albumin COVID-19 ([facility]) COVID-19 Clin Com 12/31/20 12/31/20 07:02 11:00 WBC RBC Hgb Hct MCV MCH MCHC RDW Plt Count MPV Immature Gran % (Auto) Neut % (Auto) Lymph % (Auto) [place] % (Auto) Eos % (Auto) Baso % (Auto) Lymph # (Auto) [place] # (Auto) Eos # (Auto) Baso # (Auto) Abs Immat Gran (auto) Absolute Neuts (auto) Absolute Nucleated RBC Nucleated RBC % (auto) Sodium Potassium Chloride Carbon Dioxide Anion Gap BUN Creatinine Estim Creat Clear Calc Estimated GFR POC Glucose 91 93 Random Glucose Calcium Total Bilirubin AST ALT Alkaline Phosphatase Troponin I High Sens B-Natriuretic Peptide Total Protein Albumin COVID-19 ([facility]) COVID-19 Clin Com Imaging Radiologist's impression: Impressions Chest X-Ray 12/30/20 15:33 IMPRESSION: Mild pulmonary edema. Small right pleural effusion. Assessment and Plan (1) CHF exacerbation: Status: Acute patient presents with CHF exacerbation with radiographic as well as by c hemical evidence of symptoms suggestive congestive heart failure. Says overnight has had diuresis without any overt diuretic therapy. Leg edema is improved. Shortness of breath is significantly improved. She says she is still puts out urine despite being on hemodialysis. She would like to go home. Blood pressure in the morning was not well control but currently appears to be better control. Her blood pressure is very difficult control. Continue hemodialysis Saturdays and maintain a dry weight 1/2 kg lesser than she was discharged home on Friday. Continue aggressive management better blood pressure. Low-salt diet was discussed. Heart failure management was discussed. She needs an echocardiogram and follow up as outpatient. Importance of compliance with medication as well as with clinical follow-up was discussed. She was very nonchalant about it (2) HTN (hypertension): Status: Acute hypertension which is a very difficult goal in her. She has very labile hypertension given her diffuse vascular disease as well as most likely hypertensive heart disease with advanced diastolic dysfunction and hemodialysis. She does have fluctuating blood pressure. A more reasonable blood pressure regimen as outpatient needs to be pursued. Continue metoprolol as well as amlodipine on non dialysis days. Hold amlodipine on dialysis days. Can start on Lasix 40 mg daily. Will sign of the case and follow her as outpatient. Procedures Date of Service Date of Service: 12/31/20
--- NOTE | 2020-12-31 12:30 | MHC.CM.PN ---
Addendum entered by Milvia Hines 12/31/20 16:21: PT CLEARED TO DC HOME TODAY, CAR IN LOT Original Note: PT REPORTS SHE LIVES ALONE AND IS INDEPENDENT WITH ALL CARE. PT DENIES USING ANY DME OR HAVING ANY IN HOME SERVICES. PT HAS A HCP ON FILE NAMING HER SISTER, SAMAN HER AGENT AND HER PCP IS WINNIE WHITE. CURRENT DC PLAN IS HOME WITH NO SERVICES PT WILL DRIVE HERSELF AT DC, CAR IN LOT
--- NOTE | 2020-12-31 15:48 | PM.DS ---
DS: Providers Provider Date of Service: 01/01/21 Date of admission: 12/30/20 20:21 Primary care physician: Betsy Manley MD Consults: 12/30/20 20:21 Consult to Cardiology Routine Consulting Provider: Mitch Arellano Reason for consultation: chf Has provider been notified: No 12/31/20 06:31 Consult to Nephrology Routine Consulting Provider: [facility] Reason for consultation: dialysis pt Has provider been notified: No DS: Diagnosis Discharge Diagnosis (1) CHF exacerbation: Status: Acute (2) Hypertensive crisis: Status: Acute (3) Acute on chronic respiratory failure with hypoxia: Status: Acute (4) End stage chronic kidney disease: Status: Acute DS: Medications Discharge Medications Home Medications: Home Medications Medication Instructions Recorded Confirmed Lantus Solostar U-100 Insulin 19 unit SUBCUT DAILY 12/30/20 12/30/20 Nephro-Gemini 1 tab PO DAILY 12/30/20 12/30/20 atorvastatin 1 tab PO DAILY 12/30/20 12/30/20 docusate sodium 1 cap PO DAILY 12/30/20 12/30/20 ergocalciferol (vitamin D2) 1 cap PO QWEEK 12/30/20 12/30/20 gabapentin 1 cap PO QID 12/30/20 12/30/20 isosorbide mononitrate 1 tab PO DAILY 12/30/20 12/30/20 lidocaine 1 patch TOPICAL DAILY 12/30/20 12/30/20 metoprolol tartrate 1 tab PO BID 12/30/20 12/30/20 torsemide 2 tab PO DAILY 12/30/20 12/30/20 Previous Rx's Medication Instructions Recorded amlodipine 5 mg PO DAILY 30 Days #30 tab 12/31/20 DS: Summary Hospital Course Hospital Course: admission note HPI this is a 65-year-old female with past medical history of ESRD on dialysis, CAD, diabetes, HTN, HLD who presents to the hospital with complaints of shortness of breath. Patient reports that she has been having shortness of breath for few weeks, she went to dialysis today and felt likely did not take off in off fluid off of her. As soon as she got home she continued to feel short of breath And therefore decided to come to the Hospital. Patient reports shortness of breath on exertion, she also has a hoarse voice. She reports that this usually occurs when she has too much fluid in her body. She usually gets dialysis on Friday and Friday. She was dialysis morning from 5:00 a.m. to 9:00 a.m. but believed that she did not take off enough fluid at dialysis. She denies any chest pain, no abdominal pain, no nausea or vomiting, no diarrhea constipation, no urinary symptoms as she continues to produce urine, and has lower extremity edema. Patient is also complaining of orthopnea PND. On arrival to the ED patient hemodynamically stable with vitals significant for a temp of 98.1?, heart rate of 83, respiratory rate of 22, blood pressure of 206/82, satting 87% on room air dropped to 83. Labs are significant for WBC count of 8.8, hemoglobin of 9.3 which is around her baseline, BUN of 27, creatinine of 4.27, troponin of 18.2 that decreased to 15.9, BNP of 624 Chest x-ray shows mild pulmonary edema, small right pleural effusion Hospital course The patient was admitted for acute hypoxic respiratory failure secondary to CHF exacerbation from fluid overload. Along with that her blood pressure was significantly high. She was treated mainly with IV Lasix with fair response as she was able to pass significant amount of urine overnight. Adjustments made to her blood pressure medications with addition of amlodipine with fair response. Evaluated by Nephrology who did ultrafiltration with removal of fluids. She was weaned off the oxygen during dialysis session was able to ambulate after the session on room air with no reported shortness of breath. Nephrology recommended to return back to her regular schedule dialysis. Time Spent with Patient Time attestation: Total time spent providing and/or coordinating discharge services: Discharge coordination time: Greater than 30 minutes Quality: Stroke Does the patient have a stroke diagnosis?: No Physical Exam Vital Signs: Vital Signs: Last Vital Signs Temp 97.5 F 12/31/20 11:33 Pulse 64 12/31/20 11:33 Resp 19 12/31/20 11:33 BP 141/66 H 12/31/20 11:33 Pulse Ox 91 L 12/31/20 11:33 Body Mass Index 33.8 Const: Other: Constitutional : Alert, oriented, not in distress Neck : Normal inspection, Supple Cardiovascular : RRR, S1 S2, no lower extremity edema Respiratory : Good bilateral air entry, no crackles, wheezes or rhonchi Gastrointestinal: soft, lax, Normal bowel sounds, Non tender Skin : Warm/Dry, No rash, Fistula with no erythema or drainage. Neurological : Alert & oriented x3, No focal deficit DS: Data Data Completed and Pending Labs on day of discharge: Laboratory Results - last 24 hr 12/30/20 12/30/20 12/30/20 15:37 15:37 15:37 WBC 8.8 RBC 2.83 L Hgb 9.3 L Hct 29.0 L MCV 102.5 H MCH 32.9 MCHC 32.1 RDW 14.2 Plt Count 153 L MPV 9.6 Immature Gran % (Auto) 0.2 Neut % (Auto) 70.1 Lymph % (Auto) 15.1 L [place] % (Auto) 7.4 Eos % (Auto) 6.7 H Baso % (Auto) 0.5 Lymph # (Auto) 1.3 [place] # (Auto) 0.7 Eos # (Auto) 0.6 H Baso # (Auto) 0.0 Abs Immat Gran (auto) 0.02 Absolute Neuts (auto) 6.2 Absolute Nucleated RBC 0.000 Nucleated RBC % (auto) 0.0 Sodium 140 Potassium 4.3 Chloride 96 Carbon Dioxide 30 H Anion Gap 18 BUN 27 H Creatinine 4.27 H* Estim Creat Clear Calc 11.0 Estimated GFR 10 POC Glucose Random Glucose 178 H Calcium 8.6 Total Bilirubin 0.6 AST 29 ALT 44 H Alkaline Phosphatase 91 Troponin I High Sens 18.2 H* B-Natriuretic Peptide 624 H Total Protein 7.2 Albumin 3.7 COVID-19 ([facility]) COVID-19 Clin Com 12/30/20 12/30/20 12/30/20 19:16 19:33 21:35 WBC RBC Hgb Hct MCV MCH MCHC RDW Plt Count MPV Immature Gran % (Auto) Neut % (Auto) Lymph % (Auto) [place] % (Auto) Eos % (Auto) Baso % (Auto) Lymph # (Auto) [place] # (Auto) Eos # (Auto) Baso # (Auto) Abs Immat Gran (auto) Absolute Neuts (auto) Absolute Nucleated RBC Nucleated RBC % (auto) Sodium Potassium Chloride Carbon Dioxide Anion Gap BUN Creatinine Estim Creat Clear Calc Estimated GFR POC Glucose 148 H Random Glucose Calcium Total Bilirubin AST ALT Alkaline Phosphatase Troponin I High Sens 15.9 B-Natriuretic Peptide Total Protein Albumin COVID-19 ([facility]) Negative COVID-19 Clin Com See Note 12/31/20 12/31/20 12/31/20 04:10 04:10 07:02 WBC 9.1 RBC 2.60 L Hgb 8.6 L Hct 27.2 L MCV 104.6 H MCH 33.1 H MCHC 31.6 RDW 14.2 Plt Count 132 L MPV 10.0 Immature Gran % (Auto) 0.2 Neut % (Auto) 63.9 Lymph % (Auto) 17.8 L [place] % (Auto) 9.3 Eos % (Auto) 8.5 H Baso % (Auto) 0.3 Lymph # (Auto) 1.6 [place] # (Auto) 0.8 Eos # (Auto) 0.8 H Baso # (Auto) 0.0 Abs Immat Gran (auto) 0.02 Absolute Neuts (auto) 5.8 Absolute Nucleated RBC 0.000 Nucleated RBC % (auto) 0.0 Sodium 139 Potassium 4.6 Chloride 100 Carbon Dioxide 25 Anion Gap 19 BUN 36 H Creatinine 5.21 H* Estim Creat Clear Calc 9.1 Estimated GFR 8 POC Glucose 91 Random Glucose 92 D Calcium 8.3 L Total Bilirubin AST ALT Alkaline Phosphatase Troponin I High Sens B-Natriuretic Peptide Total Protein Albumin COVID-19 ([facility]) COVID-19 [employer] Com 12/31/20 11:00 WBC RBC Hgb Hct MCV MCH MCHC RDW Plt Count MPV Immature Gran % (Auto) Neut % (Auto) Lymph % (Auto) [place] % (Auto) Eos % (Auto) Baso % (Auto) Lymph # (Auto) [place] # (Auto) Eos # (Auto) Baso # (Auto) Abs Immat Gran (auto) Absolute Neuts (auto) Absolute Nucleated RBC Nucleated RBC % (auto) Sodium Potassium Chloride Carbon Dioxide Anion Gap BUN Creatinine Estim Creat Clear Calc Estimated GFR POC Glucose 93 Random Glucose Calcium Total Bilirubin AST ALT Alkaline Phosphatase Troponin I High Sens B-Natriuretic Peptide Total Protein Albumin COVID-19 ([facility]) COVID-19 Clin Com Discharge Plan Discharge Patient Disposition: Home, Self-Care Discharge Diagnosis: Fluid overload, CHF exacerbation Referrals: Betsy Goldstein MD [Primary Care Provider] - 1 Week Discharge Medications: New amlodipine 5 mg Tablet 5 mg PO DAILY 30 Days Qty: 30 RF: 0 Continued atorvastatin 80 mg tablet 1 tab PO DAILY RF: 0 torsemide 20 mg tablet 2 tab PO DAILY RF: 0 metoprolol tartrate 100 mg tablet 1 tab PO BID RF: 0 isosorbide mononitrate 30 mg tablet extended release 24 hr 1 tab PO DAILY RF: 0 lidocaine 5 % adhesive patch,medicated 1 patch topical DAILY RF: 0 docusate sodium 100 mg capsule 1 cap PO DAILY RF: 0 gabapentin 300 mg capsule 1 cap PO QID RF: 0 Nephro-Gemini 0.8 mg tablet 1 tab PO DAILY RF: 0 ergocalciferol (vitamin D2) 1,250 mcg (50,000 unit) capsule 1 cap PO QWEEK RF: 0 Lantus Solostar U-100 Insulin 100 unit/mL (3 mL) insulin pen 19 unit subcut DAILY RF: 0 Discharge Orders: Discharge Order (Routine); Ordered 12/31/20 Ordered By: Joanna Harmon Diet: advance to usual diet and low salt diet Activity on Discharge: As tolerated Stand Alone Forms: Patient Portal Discharge page Care Plan Goals: Read below Health Concerns: Read below Plan of Treatment: you were admitted to the hospital for difficulty breathing secondary to fluid overload. Treated with IV Lasix with partial response and a dialysis session for fluid removal which held improved her overall condition. Your blood pressure was noted to be significantly high and amlodipine was added to your home medications Assessment: Start amlodipine 5 mg daily continue to monitor your blood pressure for further adjustments of the medications To follow-up with your regular dialysis schedule Discharge Date/Time: 12/31/20 17:00
== END 2020-12-31 17:00 | disposition home or self-care (01) | DRG 194 ==
LOC: HO.ED 17:55 → HO.EDOVER 20:29 → HO.IMC 20:42
PROVIDERS: Admitting Provider Internal Medicine; Emergency Provider Emergency Medicine Emergency Medical Services; PCP Internal Medicine; Visit Provider Student in an Organized Health Care Education/Training Program
DX: I13.2 Hypertensive heart and chronic kidney disease with heart failure and with stage 5 chronic kidney disease, or end stage renal disease (principal); J96.01 Acute respiratory failure with hypoxia; I16.9 Hypertensive crisis, unspecified; N18.6 End stage renal disease; I50.9 Heart failure, unspecified; E11.22 Type 2 diabetes mellitus with diabetic chronic kidney disease; E78.5 Hyperlipidemia, unspecified; I25.10 Atherosclerotic heart disease of native coronary artery without angina pectoris; Z20.822 Contact with and (suspected) exposure to COVID-19; Z79.4 Long term (current) use of insulin; Z79.899 Other long term (current) drug therapy
CPT/HCPCS: 36415; 71046; 80048; 80053; 82947; 83880; 84484; 85025; 87635; 93005; 99219; 99285; J1940

== ENCOUNTER → 2021-01-23 14:04 | Outpatient (BNVA) | payer BC, MEDICARE, SELFPAY | PROVIDERS: PCP Internal Medicine; Referring Provider Internal Medicine; Visit Provider Nurse Practitioner Family | DX: I12.0 Hypertensive chronic kidney disease with stage 5 chronic kidney disease or end stage renal disease (principal); N18.6 End stage renal disease; I25.10 Atherosclerotic heart disease of native coronary artery without angina pectoris; E78.5 Hyperlipidemia, unspecified; Z99.2 Dependence on renal dialysis; Z95.5 Presence of coronary angioplasty implant and graft | CPT/HCPCS: 93005 ==

== ENCOUNTER 2021-05-12 09:47 | Inpatient (IN) | payer BC, MEDICARE, SELFPAY ==
[2021-05-12] VITALS (8 sets, daily range): BP systolic 114–146; BP diastolic 48–70; PULSE 91–112; RESP 16–20; TEMP 37.3–37.9; O2SAT 87–98; BMI 24.8
--- NOTE | ~2021-05-12 | XR_ITS ---
EXAMINATION: XR CHEST CLINICAL INFORMATION: Shortness of breath and cough COMPARISON: Chest x-ray 12/30/2020 TECHNIQUE: Frontal view of the chest was obtained. FINDINGS: Stable mild enlargement of the cardiac silhouette. The lungs are adequately aerated. There is no lobar consolidation. No pleural effusion or pneumothorax. Mild degenerative changes of the spine. XR/XR chest 1V IMPRESSION: No acute pulmonary pathology.
--- NOTE | 2021-05-12 10:01 | ECG_ITS ---
Test Reason : SHORTNESS OF BREATH Blood Pressure : / mmHG Vent. Rate : 089 BPM Atrial Rate : 089 BPM P-R Int : 150 ms QRS Dur : 082 ms QT Int : 394 ms P-R-T Axes : 048 019 058 degrees QTc Int : 479 ms Normal sinus rhythm Nonspecific ST abnormality Borderline ECG When compared with ECG of 30-DEC-2020 16:01, ST more depressed Inferior leads Referred By: Jacinta Hines Electronically Signed By:KENZIE DIETRICH MD
--- NOTE | 2021-05-12 10:05 | ED.URI ---
HPI - URI/Sore Throat General Chief Complaint: Upper Respiratory Symptoms Stated Complaint: chest congestion Time Seen by Provider: 05/12/21 09:52 Source: patient and EMS Mode of arrival: EMS History of Present Illness HPI Narrative: 66-year-old female with a past medical history of CAD s/p stent placement, DM, CKD on HD (//Fri), HLD, presenting to the ED via EMS from dialysis c/o cough, congestion, SOB x4 days. Denies fever, chills, chest pain, abdominal pain, nausea/vomiting, LE edema/cough pain. MD elicited complaint: cough and rhinorrhea Related Data Home Medications Medication Instructions Recorded Confirmed atorvastatin 80 mg tablet 1 tab PO DAILY 12/30/20 01/23/21 docusate sodium 100 mg capsule 1 cap PO DAILY 12/30/20 01/23/21 ergocalciferol (vitamin D2) 1,250 1 cap PO QWEEK 12/30/20 01/23/21 mcg (50,000 unit) capsule gabapentin 300 mg capsule 1 cap PO QID 12/30/20 01/23/21 insulin glargine 100 unit/mL (3 19 unit SUBCUT DAILY 12/30/20 01/23/21 mL) subcutaneous pen (Lantus Solostar U-100 Insulin) lidocaine 5 % topical patch 1 patch TOPICAL DAILY 12/30/20 01/23/21 metoprolol tartrate 100 mg tablet 1 tab PO BID 12/30/20 01/23/21 amlodipine 5 mg tablet 2.5 mg PO DAILY tab 01/23/21 furosemide 40 mg tablet mg PO 01/23/21 01/23/21 gabapentin 100 mg capsule 1 cap PO TID 05/12/21 isosorbide mononitrate 60 mg 1 tab PO DAILY 05/12/21 tablet,extended release 24 hr vitamin B complex-vitamin C-folic 1 tab PO DAILY 05/12/21 acid 0.8 mg tablet (Nephro-Gemini) Allergies Allergy/AdvReac Type Severity Reaction Status Date / Time No Known Allergies Allergy Verified 01/23/21 14:15 [No Known Allergies*] Review of Systems Review of Systems: Constitutional: No Fever, No Chills, No Fatigue, No Malaise ENT/Mouth: No Ear Pain, + Nasal Congestion, No Sinus Pain, No Hoarseness, No sore throat, + Rhinorrhea Eyes: No Eye Pain, No Swelling, No Discharge Cardiovascular: No Chest Pain, + SOB, No Dyspnea on Exertion, No Orthopnea, No Edema, No Palpitations Respiratory: + Cough, No Sputum, No Wheezing, + Dyspnea Gastrointestinal: No Nausea, No Vomiting, No Diarrhea, No Constipation, No Abdominal pain Genitourinary: No Dysuria, No Urinary Frequency, No Hematuria, No Flank Pain Musculoskeletal: No joint pain, No Myalgias, No Joint Swelling Skin: No Skin Lesions, No rash Neuro: No Weakness, No Numbness, No Paresthesias, No Loss of Consciousness, No Dizziness, No Headache Yes all other systems are reviewed and are negative [facility], [facility] Past Medical History Attestation statement: The following information was validated with the patient. Medical History CAD (coronary artery disease) Diabetes End stage chronic kidney disease HTN (hypertension) HTN (hypertension) Hyperlipidemia Renal failure Surgical History Hx of cardiac catheterization Family History Family History (Updated 01/24/21 @ 08:08 by Leena Nagy NP-C) Father No problems noted. Mother No problems noted. Social History Social History Household Members: None Housing: House Alcohol intake: never Patient Tobacco Use Status: Former Tobacco user Quit Date: 1985 Years Smoked: 4+ Advance Directives: Yes Advance Directives on File: Yes Advance Directives Date on File: 01/02/21 service: No Current occupational status: employed Physical Exam Vital Signs: Vital Signs: Last Vital Signs Temp 99.1 F 05/12/21 09:52 Pulse 99 05/12/21 10:54 Resp 16 05/12/21 10:54 BP 140/55 H 05/12/21 09:52 Pulse Ox 98 05/12/21 10:54 Body Mass Index 24.8 Const: General: cooperative, healthy appearing, no acute distress and anxious Orientation/consciousness: patient oriented x3 Limitations: no limitations HENMT: Head: Yes normal to inspection Ears: hearing grossly normal bilaterally General nose exam: Normal external nose present Face and sinus: Yes normal facial exam Eyes: General: appearance normal, both eyes and all related structures EOM: EOMs intact bilaterally Neck: Neck: Yes normal visual inspection and Yes no meningeal signs Resp: Effort & Inspection: normal respiratory effort Auscultation: clear to auscultation bilaterally and wheezes expiratory wheezes (End-expiratory bibasilar) Cardio: Rate: regular rate Heart sounds: S1 normal heart sound present and S2 normal heart sound present GI: Inspection: Yes normal to inspection Palpation (GI): Soft to palpation, nontender, no guarding and not rigid : General: Yes no CVA tenderness Back/Spine/Pelvis: Back: no CVA tenderness Skin: Rashes: no rashes Wounds: no wounds Neuro: General: patient oriented x3 and no meningeal signs Gait exam (Neuro): Normal gait present Extrem: General: Yes normal to inspection, Yes no pedal edema and Yes no calf tenderness Course Course Course Narrative: -1158--no leukocytosis. H/H at patient's baseline. Chronic CKD, AST/ALT mildly elevated. Troponin 20.1 >will obtain 3 hour repeat -BNP 254 XR chest 1V IMPRESSION: No acute pulmonary pathology. ? -RSV positive>> plan for admission MDM - URI/Sore Throat MDM Narrative Medical decision making narrative: 66-year-old female with a past medical history of CAD s/p stent placement, DM, CKD on HD (//Fri), HLD, presenting to the ED via EMS from dialysis c/o cough, congestion, SOB x4 days. On exam low-grade fever 99.1, hypoxic 87-88% on RA, improved to 96% on 2L NC, lungs with bibasilar wheezing, patient anxious, no pedal edema/cough tenderness. Concern for viral syndrome/COVID-19 vs pneumonia. No evidence of overload, low concern for CHF. Lower concern for ACS/PE Plan: EKG, labs, CXR, COVID-19 testing, DuoNeb, re-evaluate, anticipated admission Medical Records Attestation: I reviewed the patient's medical records. Lab Data Attestation: I reviewed the patient's lab results. Result diagrams: 05/12/21 10:33 05/12/21 10:33 Labs: Lab Results 05/12/21 05/12/21 05/12/21 Range/Units 10:33 10:33 10:33 WBC 7.3 (4.8-10.8) X10*3/uL RBC 2.50 L (4.20-5.50) X10*6/uL Hgb 8.5 L (12.0-16.0) g/dl Hct 25.7 L (37.0-47.0) % MCV 102.8 H (80.0-98.0) fL MCH 34.0 H (27.0-33.0) pg MCHC 33.1 (31.0-35.0) g/dl RDW 14.6 (11.0-16.0) % Plt Count 137 L (160-400) X10*3/uL MPV 9.4 (9.4-12.3) fL Immature Gran % (Auto) 0.4 (0.0-0.4) % Neut % (Auto) 74.5 H (45-73) % Lymph % (Auto) 8.6 L (20-40) % [place] % (Auto) 12.0 H (2-11) % Eos % (Auto) 4.4 H (0-4) % Baso % (Auto) 0.1 (0-2) % Lymph # (Auto) 0.6 L (1.2-4.9) X10*3/uL [place] # (Auto) 0.9 (0.1-1.2) X10*3/uL Eos # (Auto) 0.3 (0.0-0.4) X10*3/uL Baso # (Auto) 0.0 (0.0-0.2) X10*3/uL Abs Immat Gran (auto) 0.03 (0.00-0.03) X10*3/uL Absolute Neuts (auto) 5.4 (2.0-8.3) x10*3/uL Absolute Nucleated RBC 0.000 (0.0-0.012) X10*3/uL Nucleated RBC % (auto) 0.0 (0.0-0.2) /100WBC Sodium 140 (135-145) mmol/L Potassium 3.4 D (3.3-5.1) mmol/L Chloride 96 (96-108) mmol/L Carbon Dioxide 35 H (22-29) mmol/L Anion Gap 12 (12-20) BUN 9 D (9-16) mg/dL Creatinine 3.04 H (0.5-1.4) mg/dL Estim Creat Clear Calc 16.9 Estimated GFR 15 Random Glucose 119 H (60-115) mg/dL Lactic Acid (0.5-2.0) mmol/L Calcium 8.6 (8.4-10.2) mg/dL Magnesium 1.9 (1.6-2.6) mg/dL Total Bilirubin 0.7 (0.0-1.0) mg/dL Direct Bilirubin 0.3 (0.0-0.5) mg/dL AST 55 H (5-31) U/L ALT 47 H (0-31) U/L Alkaline Phosphatase 82 (39-117) U/L Lactate Dehydrogenase 292 H (122-220) U/L Troponin I High Sens 20.1 H* (<3.5-17.0) ng/L C-Reactive Protein 1.12 H (< or = 0.50) mg/dL B-Natriuretic Peptide 254 H (<100) pg/mL Total Protein 7.3 (6.5-8.0) g/dL Albumin 3.9 (3.5-5.0) g/dL Influenza Type A (PCR) (Negative) Influenza Type B (PCR) (Negative) RSV RNA Qual (PCR) (Negative) SARS-CoV-2 RNA (RT-PCR) (Negative) 05/12/21 05/12/21 Range/Units 10:33 10:33 WBC (4.8-10.8) X10*3/uL RBC (4.20-5.50) X10*6/uL Hgb (12.0-16.0) g/dl Hct (37.0-47.0) % MCV (80.0-98.0) fL MCH (27.0-33.0) pg MCHC (31.0-35.0) g/dl RDW (11.0-16.0) % Plt Count (160-400) X10*3/uL MPV (9.4-12.3) fL Immature Gran % (Auto) (0.0-0.4) % Neut % (Auto) (45-73) % Lymph % (Auto) (20-40) % [place] % (Auto) (2-11) % Eos % (Auto) (0-4) % Baso % (Auto) (0-2) % Lymph # (Auto) (1.2-4.9) X10*3/uL [place] # (Auto) (0.1-1.2) X10*3/uL Eos # (Auto) (0.0-0.4) X10*3/uL Baso # (Auto) (0.0-0.2) X10*3/uL Abs Immat Gran (auto) (0.00-0.03) X10*3/uL Absolute Neuts (auto) (2.0-8.3) x10*3/uL Absolute Nucleated RBC (0.0-0.012) X10*3/uL Nucleated RBC % (auto) (0.0-0.2) /100WBC Sodium (135-145) mmol/L Potassium (3.3-5.1) mmol/L Chloride (96-108) mmol/L Carbon Dioxide (22-29) mmol/L Anion Gap (12-20) BUN (9-16) mg/dL Creatinine (0.5-1.4) mg/dL Estim Creat Clear Calc Estimated GFR Random Glucose (60-115) mg/dL Lactic Acid 0.9 (0.5-2.0) mmol/L Calcium (8.4-10.2) mg/dL Magnesium (1.6-2.6) mg/dL Total Bilirubin (0.0-1.0) mg/dL Direct Bilirubin (0.0-0.5) mg/dL AST (5-31) U/L ALT (0-31) U/L Alkaline Phosphatase (39-117) U/L Lactate Dehydrogenase (122-220) U/L Troponin I High Sens (<3.5-17.0) ng/L C-Reactive Protein (< or = 0.50) mg/dL B-Natriuretic Peptide (<100) pg/mL Total Protein (6.5-8.0) g/dL Albumin (3.5-5.0) g/dL Influenza Type A (PCR) NEGATIVE (Negative) Influenza Type B (PCR) NEGATIVE (Negative) RSV RNA Qual (PCR) POSITIVE A (Negative) SARS-CoV-2 RNA (RT-PCR) NEGATIVE (Negative) ECG Data Attestation: I personally reviewed and interpreted this ECG as follows: ECG interpretation date: 05/12/21 ECG interpretation time: 10:23 Interpretation: EKG normal sinus rhythm at a rate of 89. Pr interval 150. QTC 479. Nonischemic/no STEMI Discharge Plan Discharge Clinical Impression: RSV (respiratory syncytial virus infection) Patient Disposition: Admitted As Inpatient Prescriptions: No Action atorvastatin 80 mg tablet 1 tab PO DAILY RF: 0 metoprolol tartrate 100 mg tablet 1 tab PO BID RF: 0 lidocaine 5 % adhesive patch,medicated 1 patch topical DAILY RF: 0 docusate sodium 100 mg capsule 1 cap PO DAILY RF: 0 gabapentin 300 mg capsule 1 cap PO QID RF: 0 ergocalciferol (vitamin D2) 1,250 mcg (50,000 unit) capsule 1 cap PO QWEEK RF: 0 Lantus Solostar U-100 Insulin 100 unit/mL (3 mL) insulin pen 19 unit subcut DAILY RF: 0 isosorbide mononitrate 60 mg tablet extended release 24 hr 1 tab PO DAILY RF: 0 Nephro-Gemini 0.8 mg tablet 1 tab PO DAILY RF: 0 gabapentin 100 mg capsule 1 cap PO TID RF: 0 furosemide 40 mg tablet PO RF: 0 amlodipine 5 mg tablet 2.5 mg PO DAILY RF: 0
[2021-05-12] MEDS: Albuterol/Iprat 2.5/0.5MG 3 ML AMPUL.NEB INHALE ×2 (10:37→12:49)
[2021-05-12 10:41] LABS: MANUAL DIFF FLAG NO
[2021-05-12 10:56] LABS: Basophils Percent Auto 0.1 % (0-2); Eosinophils Absolute Auto 0.3 X10*3/uL (0.0-0.4); Eosinophils Percent Auto 4.4 % (0-4); Hematocrit 25.7 % (37.0-47.0); Hemoglobin 8.5 g/dl (12.0-16.0); Imm Gran Abs Auto 0.03 X10*3/uL (0.00-0.03); Imm Gran Pct Auto 0.4 % (0.0-0.4); Lymphocytes Absolute Auto 0.6 X10*3/uL (1.2-4.9); Lymphocytes Percent Auto 8.6 % (20-40); Mean Corpuscular HGB Conc 33.1 g/dl (31.0-35.0); Mean Corpuscular Volume 102.8 fL (80.0-98.0); Mean Platelet Volume 9.4 fL (9.4-12.3); Monocytes Absolute Auto 0.9 X10*3/uL (0.1-1.2); Neutrophils Absolute Auto 5.4 x10*3/uL (2.0-8.3); Neutrophils Percent Auto 74.5 % (45-73); Platelet Count 137 X10*3/uL (160-400); Red Cell Distribution Width 14.6 % (11.0-16.0); White Blood Count 7.3 X10*3/uL (4.8-10.8)
[2021-05-12 10:57] LABS: Lactic Acid 0.9 mmol/L (0.5-2.0)
[2021-05-12 11:24] LABS: Alanine Aminotransferase 47 U/L (0-31); Albumin Level 3.9 g/dL (3.5-5.0); Alkaline Phosphatase 82 U/L (39-117); Anion Gap 12 (12-20); Aspartate Amino Transferase 55 U/L (5-31); Bilirubin Direct 0.3 mg/dL (0.0-0.5); Bilirubin Total 0.7 mg/dL (0.0-1.0); Blood Urea Nitrogen 9 mg/dL (9-16); C Reactive Protein 1.12 mg/dL (< or = 0.50); Calcium 8.6 mg/dL (8.4-10.2); Carbon Dioxide 35 mmol/L (22-29); Chloride 96 mmol/L (96-108); Creatinine Clr Calc Pharmacy 16.9; Estimated Glomerular Filt Rate 15; Glucose Random 119 mg/dL (60-115); Magnesium 1.9 mg/dL (1.6-2.6); Potassium 3.4 mmol/L (3.3-5.1); Sodium 140 mmol/L (135-145); Total Protein 7.3 g/dL (6.5-8.0)
[2021-05-12 11:33] LABS: Lactate Dehydrogenase 292 U/L (122-220)
[2021-05-12 11:42] LABS: Influenza A PCR NEGATIVE (Negative); Influenza B PCR NEGATIVE (Negative); Resp Syncy Virus RNA Qual PCR POSITIVE (Negative); SARS COV2 PCR INHOUSE NEGATIVE (Negative)
[2021-05-12 11:52] LABS: B Type Natriuretic Peptide 254 pg/mL (<100); Troponin-I High Sensitivity 20.1 ng/L (<3.5-17.0)
[2021-05-12 12:03] LABS: Ferritin 2807 ng/mL (10-250)
[2021-05-12] MEDS: Benzonatate 100 MG CAPSULE 200 MG PO (12:43)
[2021-05-12] MEDS: HYDROcodone/Homat 5/1.5/5 ML 5 ML SYRUP PO (12:44)
[2021-05-12] MEDS: methylPREDNISolone Sod Succ 125 MG/2 ML VIAL IVPUSH (12:45)
--- NOTE | 2021-05-12 12:57 | PM.IMHP ---
History of Present Illness Date of Service: 05/12/21 Chief Complaint: Shortness of breath 66-year-old female presented with shortness of breath. Patient states she started feeling ill about 5 days prior to presentation, she says started with a head cold, congestion, postnasal drip associated with productive cough with white sputum. Also complained weakness without fever chills. She denies any sick contacts. Patient's shortness of breath got worse, she was noted to be significantly dyspneic while in hemodialysis and was sent to ED. in ED patient noted to be hypoxic to 87% on room air. RSV came back positive. She was given steroids and bronchodilators. Review of Systems Review of Systems: Constitutional: Denies fever, denies Chills Eyes: denies blurry vision ENT: denies sore throat CVS: denies chest pain Respiratory: dyspnea GI: no abdominal pain : denies dysuria MSK: denies neck pain Skin: denies rash Neuro: denies specific motor weakness Psych: denies suicidal ideation Endocrine: denies heat/cold intolerance Hematologic: denies easy bleeding Allergy: denies hives [facility] Medical History CAD (coronary artery disease) Diabetes End stage chronic kidney disease HTN (hypertension) HTN (hypertension) Hyperlipidemia Renal failure Family History Father No problems noted. Mother No problems noted. Surgical History (Updated 05/12/21 @ 13:05 by Macario Nichols MD) Hx of cardiac catheterization Social History Household Members: None Housing: House Alcohol intake: never Patient Tobacco Use Status: Former Tobacco user Quit Date: 1985 Years Smoked: 4+ Advance Directives: Yes Advance Directives on File: Yes Advance Directives Date on File: 01/02/21 service: No Current occupational status: employed Meds Allergies Allergy/AdvReac Type Severity Reaction Status Date / Time No Known Allergies Allergy Verified 01/23/21 14:15 [No Known Allergies*] Active Medications: Current Medications Albuterol/Ipratropium (Albuterol/Iprat 2.5/0.5mg 3 Ml Ampul.Neb) 3 ml INHALE RQ4H PRN PRN Reason: sob Dextrose (Dextrose 50 % 25 Gm/50 Ml Vial) 25 gm IVPUSH Q15M PRN; Protocol PRN Reason: per Hypoglycemia Standing Ord. Docusate Sodium (Docusate Sodium 100 Mg Capsule) 100 mg PO DAILY AMBAR Ergocalciferol (Ergocalciferol (Vitamin D2) 1,250 Mcg Capsule) mcg PO QWEEK AMBAR Furosemide (Furosemide 40 Mg Tablet) 40 mg PO DAILY AMBAR; Protocol Gabapentin (Gabapentin 300 Mg Capsule) 300 mg PO QID AMBAR Glucose (Glucose Gel 15 Gm Gel..Gram.) 15 gm PO Q15M PRN; Protocol PRN Reason: per Hypoglycemia Standing Ord. Insulin Glargine (Insulin Glargine,Hum.Rec.Anlog 100 Unit/Ml 10 Ml Vial) 15 unit SUBCUT BEDTIME AMBAR Insulin Human Lispro (Insulin Lispro 100 Unit/Ml 3 Ml Vial) 0 unit SUBCUT QIDACHS AMBAR; Protocol Isosorbide Mononitrate (Isosorbide Mononitrate 60 Mg Tab.Er.24h) 60 mg PO DAILY AMBAR; Protocol Methylprednisolone Sodium Succinate (Methylprednisolone Sod Succ 40 Mg/Ml Vial) 40 mg IVPUSH Q12H AMBAR Metoprolol Tartrate (Metoprolol Tartrate 100 Mg Tablet) 100 mg PO BID AMBAR; Protocol Multivitamins/Vitamin C (Multivitamin Tablet) 1 tab PO DAILY [facility] Pharmacy Consult (Consult Rx Perform Med Rec) 1 each MISCELLANE ONCE PRN PRN Reason: Consult order Home Medications Medication Instructions Recorded Confirmed Last Taken Type docusate sodium 100 mg capsule 1 cap PO DAILY 12/30/20 05/12/21 05/11/21 History ergocalciferol (vitamin D2) 1,250 1 cap PO SARKAR 12/30/20 05/12/21 05/06/21 History mcg (50,000 unit) capsule insulin glargine 100 unit/mL (3 19 unit SUBCUT DAILY 12/30/20 05/12/21 05/11/21 History mL) subcutaneous pen (Lantus Solostar U-100 Insulin) metoprolol tartrate 100 mg tablet 50 mg PO BID 12/30/20 05/12/21 05/11/21 History furosemide 40 mg tablet 120 mg PO DAILY 01/23/21 05/12/21 05/11/21 History atorvastatin 80 mg tablet 1 tab PO BEDTIME 05/12/21 05/12/21 05/11/21 History gabapentin 100 mg capsule 1 cap PO TID 05/12/21 05/12/21 05/11/21 History vitamin B complex-vitamin C-folic 1 tab PO DAILY 05/12/21 05/12/21 05/11/21 History acid 0.8 mg tablet (Nephro-Gemini) Physical Exam Vital Signs and Narrative: Vital Signs: Last Vital Signs Temp 99.1 F 05/12/21 09:52 Pulse 106 H 05/12/21 12:50 Resp 16 05/12/21 10:54 BP 140/55 H 05/12/21 09:52 Pulse Ox 98 05/12/21 10:54 Body Mass Index 24.8 General: dyspneic HEENT: atraumatic Neck: normal to visual inspection CVS: S1, S2, RRR Resp: diminished, some crackles, no wheeze Chest: non tender GI: soft, non tender, non distended : no CVA tenderness Skin: no rashes Extremities: no edema Neuro: Oriented X3, grossly intact Psych: cooperative Results Labs CBC and Chem 7: 05/12/21 10:33 05/12/21 10:33 Labs: Laboratory Results - last 24 hr 05/12/21 05/12/21 05/12/21 10:33 10:33 10:33 MCV 102.8 H MCH 34.0 H MCHC 33.1 RDW 14.6 Plt Count 137 L MPV 9.4 Immature Gran % (Auto) 0.4 Neut % (Auto) 74.5 H Lymph % (Auto) 8.6 L [place] % (Auto) 12.0 H Eos % (Auto) 4.4 H Baso % (Auto) 0.1 Lymph # (Auto) 0.6 L [place] # (Auto) 0.9 Eos # (Auto) 0.3 Baso # (Auto) 0.0 Abs Immat Gran (auto) 0.03 Absolute Neuts (auto) 5.4 Absolute Nucleated RBC 0.000 Nucleated RBC % (auto) 0.0 Anion Gap 12 Estim Creat Clear Calc 16.9 Estimated GFR 15 Random Glucose 119 H Lactic Acid Calcium 8.6 Magnesium 1.9 Ferritin Total Bilirubin 0.7 Direct Bilirubin 0.3 AST 55 H ALT 47 H Alkaline Phosphatase 82 Lactate Dehydrogenase 292 H Troponin I High Sens 20.1 H* C-Reactive Protein 1.12 H B-Natriuretic Peptide 254 H Total Protein 7.3 Albumin 3.9 Influenza Type A (PCR) Influenza Type B (PCR) RSV RNA Qual (PCR) SARS-CoV-2 RNA (RT-PCR) 05/12/21 05/12/21 05/12/21 10:33 10:33 10:33 MCV MCH MCHC RDW Plt Count MPV Immature Gran % (Auto) Neut % (Auto) Lymph % (Auto) [place] % (Auto) Eos % (Auto) Baso % (Auto) Lymph # (Auto) [place] # (Auto) Eos # (Auto) Baso # (Auto) Abs Immat Gran (auto) Absolute Neuts (auto) Absolute Nucleated RBC Nucleated RBC % (auto) Anion Gap Estim Creat Clear Calc Estimated GFR Random Glucose Lactic Acid 0.9 Calcium Magnesium Ferritin 2807 H Total Bilirubin Direct Bilirubin AST ALT Alkaline Phosphatase Lactate Dehydrogenase Troponin I High Sens C-Reactive Protein B-Natriuretic Peptide Total Protein Albumin Influenza Type A (PCR) NEGATIVE Influenza Type B (PCR) NEGATIVE RSV RNA Qual (PCR) POSITIVE A SARS-CoV-2 RNA (RT-PCR) NEGATIVE Imaging Radiologist's Impressions: Impressions Chest X-Ray 05/12/21 10:02 IMPRESSION: No acute pulmonary pathology. Assessment and Plan (1) RSV (respiratory syncytial virus infection): Status: Acute (2) End stage chronic kidney disease: Status: Acute (3) CAD (coronary artery disease): Status: Acute 66F presented with sob Acute hypoxic respiratory failure secondary to RSV IV steroids, bronchodilators Wean O2 as tolerated End-stage renal disease On hemodialysis Nephrology eval Coronary disease asa, lipitor Diabetes Basal bolus insulin, monitor point of care Hypertension Lopressor Chronic diastolic CHF Continue with Lasix, does make some urine DVT prophylaxis with heparin subQ Full code Quality Stroke Does the patient have a stroke diagnosis?: No VTE Prior VTE?: No VTE Risk Level:: Medical - moderate - high VTE Device Contraindication: Treatment Not Indicated VTE Drug Contraindication: N/A - Med Ordered
--- NOTE | 2021-05-12 13:32 | PHA.MEDREC ---
Pharmacy Consult ? Medication Reconciliation Pharmacy has completed the medication reconciliation. Patient no longer takes isosorbide or amlodipine. Metoprolol dose was reduced. Pt takes all lasix at once Thanks Daphne Jaimes
[2021-05-12 14:01] LABS: Troponin-I High Sensitivity 20.1 ng/L (<3.5-17.0)
[2021-05-12] MEDS: Gabapentin 100 MG CAPSULE PO ×2 (14:11→20:41)
[2021-05-12] MEDS: Docusate Sodium 100 MG CAPSULE PO (14:11)
[2021-05-12] MEDS: Furosemide 40 MG TABLET 120 MG PO (14:12)
[2021-05-12] MEDS: Aspirin Enteric Coated 81 MG TABLET.DR PO (14:12)
[2021-05-12] MEDS: Multivitamin TABLET 1 TAB PO (14:12)
[2021-05-12] MEDS: Heparin Sodium,Porcine 5,000 UNIT/ML VIAL 5000 UNIT SUBCUT ×2 (14:15→20:39)
--- NOTE | 2021-05-12 14:31 | PC.NURSE ---
waiting on ambulance transport home
[2021-05-12] MEDS: Acetaminophen 325 MG TABLET 650 MG PO (17:12)
[2021-05-12 17:16] LABS: Glucose, Whole Blood 231 mg/dL (60-115)
--- NOTE | 2021-05-12 17:47 | PC.NURSE ---
CALLED TO GIVE REPORT RN WILL RETURN CALL
[2021-05-12] MEDS: Insulin Lispro 100 UNIT/ML 3 ML VIAL SUBCUT ×2 (18:12→20:39)
[2021-05-12] MEDS: 0.9 % Sodium Chloride Flush 3 ML SYRINGE IVFLUSH ×2 (18:40→20:41)
[2021-05-12 20:12] LABS: Glucose, Whole Blood 265 mg/dL (60-115)
[2021-05-12] MEDS: Insulin Glargine,Hum.rec.anlog 100 UNIT/ML 10 ML VIAL 15 UNIT SUBCUT (20:40)
[2021-05-12] MEDS: Metoprolol Tartrate 50 MG TABLET PO (20:41)
[2021-05-12] MEDS: Atorvastatin Calcium 80 MG TABLET PO (20:41)
[2021-05-13] VITALS (9 sets, daily range): BP systolic 130–139; BP diastolic 61–88; PULSE 74–86; RESP 17–20; TEMP 36.1–36.8; O2SAT 90–95
[2021-05-13] MEDS: Heparin Sodium,Porcine 5,000 UNIT/ML VIAL 5000 UNIT SUBCUT ×3 (05:13→20:03)
[2021-05-13] MEDS: methylPREDNISolone Sod Succ 40 MG/ML VIAL IVPUSH ×2 (05:13→19:32)
[2021-05-13 05:29] LABS: Hematocrit 22.8 % (37.0-47.0); Hemoglobin 7.5 g/dl (12.0-16.0); Mean Corpuscular HGB Conc 32.9 g/dl (31.0-35.0); Mean Corpuscular Hemoglobin 33.5 pg (27.0-33.0); Mean Corpuscular Volume 101.8 fL (80.0-98.0); Mean Platelet Volume 9.3 fL (9.4-12.3); Platelet Count 134 X10*3/uL (160-400); Red Blood Count 2.24 X10*6/uL (4.20-5.50); Red Cell Distribution Width 14.6 % (11.0-16.0); White Blood Count 7.9 X10*3/uL (4.8-10.8)
[2021-05-13 05:53] LABS: Anion Gap 17 (12-20); Blood Urea Nitrogen 23 mg/dL (9-16); Calcium 8.1 mg/dL (8.4-10.2); Carbon Dioxide 29 mmol/L (22-29); Chloride 96 mmol/L (96-108); Glucose Fasting 94 mg/dL (60-99); Potassium 4.1 mmol/L (3.3-5.1); Sodium 138 mmol/L (135-145)
[2021-05-13 06:04] LABS: Creatinine Clr Calc Pharmacy 9.6; Estimated Glomerular Filt Rate 8
[2021-05-13 07:35] LABS: Glucose, Whole Blood 100 mg/dL (60-115)
[2021-05-13] MEDS: Docusate Sodium 100 MG CAPSULE PO (08:13)
[2021-05-13] MEDS: Gabapentin 100 MG CAPSULE PO ×3 (08:13→20:03)
[2021-05-13] MEDS: Aspirin Enteric Coated 81 MG TABLET.DR PO (08:13)
[2021-05-13] MEDS: Multivitamin TABLET 1 TAB PO (08:13)
[2021-05-13] MEDS: Metoprolol Tartrate 50 MG TABLET PO ×2 (08:13→20:03)
[2021-05-13] MEDS: Furosemide 40 MG TABLET 120 MG PO (08:14)
[2021-05-13] MEDS: Ergocalciferol (Vitamin D2) 1,250 MCG CAPSULE 1250 MCG PO (08:14)
[2021-05-13] MEDS: 0.9 % Sodium Chloride Flush 3 ML SYRINGE IVFLUSH ×2 (08:15→17:43)
[2021-05-13] MEDS: Acetaminophen 325 MG TABLET 650 MG PO ×2 (08:22→19:37)
--- NOTE | 2021-05-13 09:33 | MHC.CM.PN ---
PATIENT LIVES ALONE AND IS FULLY INDEPENDENT. SHE HAS DIALYSIS TREATMENT ON SCHEDULE @ [facility] NO [facility]. HER NEW PCP IS THROUGH [facility]. PATIENT IS UNABLE TO RECALL PCP NAME. UPDATE MADE IN QUICK TASK OF [facility]. PATIENT HAS BEEN VACCINATED AGAINST COVID-19 (3 INJECTIONS) INFORMATION RECORDED IN EXPANSE COPY OF VACCINATION CARD UPLOADED INTO [facility] IMM 05/13 IN CHART. PATIENT IS EXPECTED TO RETURN HOME TOMORROW (05/14/21) AND HAS TRANSPORTATION ARRANGED FOR THIS.
--- NOTE | 2021-05-13 09:51 | P.PNIM_ITS ---
Subjective Subjective Date of Service: 05/13/21 Interval History: cc: sob interval history: much better today Cardiovascular Cardiovascular: Reports no additional cardiovascular complaints Gastrointestinal Gastrointestinal: Reports no additional gastrointestinal complaints Physical Exam Vital Signs: Vital Signs: Last Vital Signs Temp 98.2 F 05/13/21 07:17 Pulse 82 05/13/21 08:13 Resp 18 05/13/21 07:17 BP 139/62 05/13/21 08:13 Pulse Ox 90 L 05/13/21 07:17 Body Mass Index 24.8 General: AO X 3, no acute distress Resp: CTA bilateral, no accessory muscles used CVS: S1,S2,RRR GI: soft, non tender, non distended Neuro: motor grossly intact, alert Psych: appropriate affect, appropriate insight Objective Data Active Medications Acetaminophen (Acetaminophen 325 Mg Tablet) 650 mg PO Q6H PRN PRN Reason: Pain, Mild (Pain Scale 1-3) Last Admin: 05/13/21 08:22 Dose: 650 mg Documented by: GUERA Albuterol/Ipratropium (Albuterol/Iprat 2.5/0.5mg 3 Ml Ampul.Neb) 3 ml INHALE Q4H PRN PRN Reason: sob Aspirin (Aspirin Enteric Coated 81 Mg Tablet.) 81 mg PO DAILY [facility] Last Admin: 05/13/21 08:13 Dose: 81 mg Documented by: GUERA Atorvastatin Calcium (Atorvastatin Calcium 80 Mg Tablet) 80 mg PO BEDTIME [facility] Last Admin: 05/12/21 20:41 Dose: 80 mg Documented by: SAM Dextrose (Dextrose 50 % 25 Gm/50 Ml Vial) 25 gm IVPUSH Q15M PRN; Protocol PRN Reason: per Hypoglycemia Standing Ord. Docusate Sodium (Docusate Sodium 100 Mg Capsule) 100 mg PO DAILY [facility] Last Admin: 05/13/21 08:13 Dose: 100 mg Documented by: GUERA Ergocalciferol (Ergocalciferol (Vitamin D2) 1,250 Mcg Capsule) 1,250 mcg PO Hutton [facility] Last Admin: 05/13/21 08:14 Dose: 1,250 mcg Documented by: GUERA Furosemide (Furosemide 40 Mg Tablet) 120 mg PO DAILY [facility]; Protocol Last Admin: 05/13/21 08:14 Dose: 120 mg Documented by: GUERA Gabapentin (Gabapentin 100 Mg Capsule) 100 mg PO TID [facility] Last Admin: 05/13/21 08:13 Dose: 100 mg Documented by: GUERA Glucose (Glucose Gel 15 Gm Gel..Gram.) 15 gm PO Q15M PRN; Protocol PRN Reason: per Hypoglycemia Standing Ord. Heparin Sodium (Porcine) (Heparin Sodium,Porcine 5,000 Unit/Ml Vial) 5,000 unit SUBCUT Q8H [facility] Last Admin: 05/13/21 05:13 Dose: 5,000 unit Documented by: SAM Insulin Glargine (Insulin Glargine,Hum.Rec.Anlog 100 Unit/Ml 10 Ml Vial) 15 unit SUBCUT BEDTIME [facility] Last Admin: 05/12/21 20:40 Dose: 15 unit Documented by: SAM Insulin Human Lispro (Insulin Lispro 100 Unit/Ml 3 Ml Vial) 0 unit SUBCUT QIDACHS [facility]; Protocol Last Admin: 05/12/21 20:39 Dose: 6 unit Documented by: SAM Methylprednisolone Sodium Succinate (Methylprednisolone Sod Succ 40 Mg/Ml Vial) 40 mg IVPUSH Q12H [facility] Last Admin: 05/13/21 05:13 Dose: 40 mg Documented by: SAM Metoprolol Tartrate (Metoprolol Tartrate 50 Mg Tablet) 50 mg PO BID [facility]; Protocol Last Admin: 05/13/21 08:13 Dose: 50 mg Documented by: GUERA Multivitamins/Vitamin C (Multivitamin Tablet) 1 tab PO DAILY [facility] Last Admin: 05/13/21 08:13 Dose: 1 tab Documented by: GUERA Pharmacy Consult (Consult Rx Perform Med Rec) 1 each MISCELLANE ONCE PRN PRN Reason: Consult order Sodium Chloride (0.9 % Sodium Chloride Flush 3 Ml Syringe) 3 ml IVFLUSH QSHIFT [facility] Last Admin: 05/13/21 08:15 Dose: 3 ml Documented by: GUERA Labs CBC & Chem 7: 05/13/21 05:20 05/13/21 05:20 Labs: Laboratory Results - last 24 hr 05/12/21 05/12/21 05/12/21 10:33 10:33 10:33 Hgb 8.5 L MCV 102.8 H MCH 34.0 H MCHC 33.1 RDW 14.6 Plt Count 137 L MPV 9.4 Immature Gran % (Auto) 0.4 Neut % (Auto) 74.5 H Lymph % (Auto) 8.6 L [place] % (Auto) 12.0 H Eos % (Auto) 4.4 H Baso % (Auto) 0.1 Lymph # (Auto) 0.6 L [place] # (Auto) 0.9 Eos # (Auto) 0.3 Baso # (Auto) 0.0 Abs Immat Gran (auto) 0.03 Absolute Neuts (auto) 5.4 Absolute Nucleated RBC 0.000 Nucleated RBC % (auto) 0.0 Anion Gap 12 Estim Creat Clear Calc 16.9 Estimated GFR 15 POC Glucose Random Glucose 119 H Fasting Glucose Lactic Acid Calcium 8.6 Magnesium 1.9 Ferritin Total Bilirubin 0.7 Direct Bilirubin 0.3 AST 55 H ALT 47 H Alkaline Phosphatase 82 Lactate Dehydrogenase 292 H Troponin I High Sens 20.1 H* C-Reactive Protein 1.12 H B-Natriuretic Peptide 254 H Total Protein 7.3 Albumin 3.9 Influenza Type A (PCR) Influenza Type B (PCR) RSV RNA Qual (PCR) SARS-CoV-2 RNA (RT-PCR) 05/12/21 05/12/21 05/12/21 10:33 10:33 10:33 Hgb MCV MCH MCHC RDW Plt Count MPV Immature Gran % (Auto) Neut % (Auto) Lymph % (Auto) [place] % (Auto) Eos % (Auto) Baso % (Auto) Lymph # (Auto) [place] # (Auto) Eos # (Auto) Baso # (Auto) Abs Immat Gran (auto) Absolute Neuts (auto) Absolute Nucleated RBC Nucleated RBC % (auto) Anion Gap Estim Creat Clear Calc Estimated GFR POC Glucose Random Glucose Fasting Glucose Lactic Acid 0.9 Calcium Magnesium Ferritin 2807 H Total Bilirubin Direct Bilirubin AST ALT Alkaline Phosphatase Lactate Dehydrogenase Troponin I High Sens C-Reactive Protein B-Natriuretic Peptide Total Protein Albumin Influenza Type A (PCR) NEGATIVE Influenza Type B (PCR) NEGATIVE RSV RNA Qual (PCR) POSITIVE A SARS-CoV-2 RNA (RT-PCR) NEGATIVE 05/12/21 05/12/21 05/12/21 13:25 17:12 20:08 Hgb MCV MCH MCHC RDW Plt Count MPV Immature Gran % (Auto) Neut % (Auto) Lymph % (Auto) [place] % (Auto) Eos % (Auto) Baso % (Auto) Lymph # (Auto) [place] # (Auto) Eos # (Auto) Baso # (Auto) Abs Immat Gran (auto) Absolute Neuts (auto) Absolute Nucleated RBC Nucleated RBC % (auto) Anion Gap Estim Creat Clear Calc Estimated GFR POC Glucose 231 H 265 H Random Glucose Fasting Glucose Lactic Acid Calcium Magnesium Ferritin Total Bilirubin Direct Bilirubin AST ALT Alkaline Phosphatase Lactate Dehydrogenase Troponin I High Sens 20.1 H* C-Reactive Protein B-Natriuretic Peptide Total Protein Albumin Influenza Type A (PCR) Influenza Type B (PCR) RSV RNA Qual (PCR) SARS-CoV-2 RNA (RT-PCR) 05/13/21 05/13/21 05/13/21 05:20 05:20 07:20 Hgb 7.5 L MCV 101.8 H MCH 33.5 H MCHC 32.9 RDW 14.6 Plt Count 134 L MPV 9.3 L Immature Gran % (Auto) Neut % (Auto) Lymph % (Auto) [place] % (Auto) Eos % (Auto) Baso % (Auto) Lymph # (Auto) [place] # (Auto) Eos # (Auto) Baso # (Auto) Abs Immat Gran (auto) Absolute Neuts (auto) Absolute Nucleated RBC 0.000 Nucleated RBC % (auto) 0.0 Anion Gap 17 Estim Creat Clear Calc 9.6 Estimated GFR 8 POC Glucose 100 Random Glucose Fasting Glucose 94 Lactic Acid Calcium 8.1 L Magnesium Ferritin Total Bilirubin Direct Bilirubin AST ALT Alkaline Phosphatase Lactate Dehydrogenase Troponin I High Sens C-Reactive Protein B-Natriuretic Peptide Total Protein Albumin Influenza Type A (PCR) Influenza Type B (PCR) RSV RNA Qual (PCR) SARS-CoV-2 RNA (RT-PCR) Assessment and Plan (1) RSV (respiratory syncytial virus infection): Status: Acute (2) End stage chronic kidney disease: Status: Acute Assessment and Plan: 66F presented with sob Acute hypoxic respiratory failure secondary to RSV improving continue IV steroids, bronchodilators Wean O2 as tolerated End-stage renal disease On hemodialysis Nephrology eval Coronary disease asa, lipitor Diabetes Basal bolus insulin, monitor point of care Hypertension Lopressor Chronic diastolic CHF Continue with Lasix, does make some urine DVT prophylaxis with heparin subQ Full code Quality Stroke Does the patient have a stroke diagnosis?: No VTE Prior VTE?: No VTE Risk Level:: Medical - moderate - high VTE Device Contraindication: Treatment Not Indicated VTE Drug Contraindication: N/A - Med Ordered
[2021-05-13 11:59] LABS: Glucose, Whole Blood 139 mg/dL (60-115)
--- NOTE | 2021-05-13 14:46 | PM.CNNEP ---
History of Present Illness Reason for Consult Consult date: 05/13/21 Reason for consult: ESRD management of dialysis needs Chief Complaint Chief complaint: RSV History of Present Illness Narrative: Shy is a 66 yo woman with ESRD due to DKD who is dialysis dependent for about 1 year. She dialyzes at the [facility] on . She presented after dialysis yesterday with cough, SOB, wheezing. she was exposed to a toddler with croup She is found to have RSV. She is feeling much better with the breathing treatments and nebulizers. She has a full 4 hr treatment/HD yesterday prior to arrival. she denies orthopnea, edema or chest pain. Review of Systems Review of Systems SOB improved Comments: no diarrhea, nausea, vomiting Comments: she fell and fractured her left wrist 10 days ago PMFSH Past Medical History Medical History CAD (coronary artery disease) Diabetes End stage chronic kidney disease HTN (hypertension) HTN (hypertension) Hyperlipidemia Renal failure Family History Family History Father No problems noted. Mother No problems noted. Surgical History Surgical History Hx of cardiac catheterization Social History Social History Household Members: None Housing: House Do you presently have visiting nurse or other home services: No Alcohol intake: never Patient Tobacco Use Status: Former Tobacco user Quit Date: 1985 Smoked: 4+ Advance Directives Date on File: 01/02/21 service: No Current occupational status: employed Meds Allergies Allergy/AdvReac Type Severity Reaction Status Date / Time No Known Allergies Allergy Verified 01/23/21 14:15 [No Known Allergies*] Active Medications: Current Medications Acetaminophen (Acetaminophen 325 Mg Tablet) 650 mg PO Q6H PRN PRN Reason: Pain, Mild (Pain Scale 1-3) Last Admin: 05/13/21 08:22 Dose: 650 mg Documented by: Albuterol/Ipratropium (Albuterol/Iprat 2.5/0.5mg 3 Ml Ampul.Neb) 3 ml INHALE Q4H PRN PRN Reason: sob Aspirin (Aspirin Enteric Coated 81 Mg Tablet.) 81 mg PO DAILY [facility] Last Admin: 05/13/21 08:13 Dose: 81 mg Documented by: Atorvastatin Calcium (Atorvastatin Calcium 80 Mg Tablet) 80 mg PO BEDTIME [facility] Last Admin: 05/12/21 20:41 Dose: 80 mg Documented by: Dextrose (Dextrose 50 % 25 Gm/50 Ml Vial) 25 gm IVPUSH Q15M PRN; Protocol PRN Reason: per Hypoglycemia Standing Ord. Docusate Sodium (Docusate Sodium 100 Mg Capsule) 100 mg PO DAILY [facility] Last Admin: 05/13/21 08:13 Dose: 100 mg Documented by: Ergocalciferol (Ergocalciferol (Vitamin D2) 1,250 Mcg Capsule) 1,250 mcg PO Hutton [facility] Last Admin: 05/13/21 08:14 Dose: 1,250 mcg Documented by: Furosemide (Furosemide 40 Mg Tablet) 120 mg PO DAILY [facility]; Protocol Last Admin: 05/13/21 08:14 Dose: 120 mg Documented by: Gabapentin (Gabapentin 100 Mg Capsule) 100 mg PO TID [facility] Last Admin: 05/13/21 14:07 Dose: 100 mg Documented by: Glucose (Glucose Gel 15 Gm Gel..Gram.) 15 gm PO Q15M PRN; Protocol PRN Reason: per Hypoglycemia Standing Ord. Heparin Sodium (Porcine) (Heparin Sodium,Porcine 5,000 Unit/Ml Vial) 5,000 unit SUBCUT Q8H [facility] Last Admin: 05/13/21 14:07 Dose: 5,000 unit Documented by: Insulin Glargine (Insulin Glargine,Hum.Rec.Anlog 100 Unit/Ml 10 Ml Vial) 15 unit SUBCUT BEDTIME [facility] Last Admin: 05/12/21 20:40 Dose: 15 unit Documented by: Insulin Human Lispro (Insulin Lispro 100 Unit/Ml 3 Ml Vial) 0 unit SUBCUT QIDACHS [facility]; Protocol Last Admin: 05/13/21 12:36 Dose: Not Given Documented by: Methylprednisolone Sodium Succinate (Methylprednisolone Sod Succ 40 Mg/Ml Vial) 40 mg IVPUSH Q12H [facility] Last Admin: 05/13/21 05:13 Dose: 40 mg Documented by: Metoprolol Tartrate (Metoprolol Tartrate 50 Mg Tablet) 50 mg PO BID [facility]; Protocol Last Admin: 05/13/21 08:13 Dose: 50 mg Documented by: Multivitamins/Vitamin C (Multivitamin Tablet) 1 tab PO DAILY [facility] Last Admin: 05/13/21 08:13 Dose: 1 tab Documented by: Pharmacy Consult (Consult Rx Perform Med Rec) 1 each MISCELLANE ONCE PRN PRN Reason: Consult order Sodium Chloride (0.9 % Sodium Chloride Flush 3 Ml Syringe) 3 ml IVFLUSH QSHIFT [facility] Last Admin: 05/13/21 08:15 Dose: 3 ml Documented by: Home Medications Medication Instructions Recorded Confirmed Last Taken Type docusate sodium 100 mg capsule 1 cap PO DAILY 12/30/20 05/12/21 05/11/21 History ergocalciferol (vitamin D2) 1,250 1 cap PO [place] 12/30/20 05/12/21 05/06/21 History mcg (50,000 unit) capsule insulin glargine 100 unit/mL (3 19 unit SUBCUT DAILY 12/30/20 05/12/21 05/11/21 History mL) subcutaneous pen (Lantus Solostar U-100 Insulin) metoprolol tartrate 100 mg tablet 50 mg PO BID 12/30/20 05/12/21 05/11/21 History furosemide 40 mg tablet 120 mg PO DAILY 01/23/21 05/12/21 05/11/21 History aspirin 81 mg tablet,delayed 81 mg PO DAILY 05/12/21 05/12/21 05/11/21 History release atorvastatin 80 mg tablet 1 tab PO BEDTIME 05/12/21 05/12/21 05/11/21 History gabapentin 100 mg capsule 1 cap PO TID 05/12/21 05/12/21 05/11/21 History vitamin B complex-vitamin C-folic 1 tab PO DAILY 05/12/21 05/12/21 05/11/21 History acid 0.8 mg tablet (Nephro-Gemini) Physical Exam Vital Signs: Last Vital Signs Temp 97.5 F 05/13/21 11:20 Pulse 74 05/13/21 11:20 Resp 18 05/13/21 11:20 BP 137/64 05/13/21 11:20 Pulse Ox 90 L 05/13/21 11:20 Body Mass Index 24.8 Const General: healthy appearing, comfortable and no acute distress Orientation/consciousness: patient oriented x3 Neck Neck: Yes normal visual inspection, Yes full ROM and Yes no lymphadenopathy Resp Auscultation: wheezes and bronchial breath sounds Cardio Jugular venous distension: no JVD Heart sounds: S1 normal heart sound present and S2 normal heart sound present Neuro General: patient oriented x3 and no focal motor deficits Extrem General: Yes no pedal edema Results Lab Results Result Diagrams: 05/13/21 05:20 05/13/21 05:20 Lab results: Chemistry 05/12/21 05/13/21 10:33 05:20 Sodium 140 138 Potassium 3.4 D 4.1 D Carbon Dioxide 35 H 29 BUN 9 D 23 H D Creatinine 3.04 H 5.37 H* Calcium 8.6 8.1 L Hematology 05/12/21 05/13/21 10:33 05:20 WBC 7.3 7.9 Hgb 8.5 L 7.5 L Plt Count 137 L 134 L Assessment and Plan (1) End stage chronic kidney disease: Status: Acute (2) HTN (hypertension): Status: Acute (3) RSV (respiratory syncytial virus infection): Status: Acute (4) Anemia: Status: Acute Pt with ESRD who dialyzes : next dialysis will be on Friday Volume status euvolemic, no need for UF tomorrow Anemic: check iron stores and consider giving IV iron or dosing BLANCA Procedures Date of Service Date of Service: 05/13/21
[2021-05-13] MEDS: Albuterol/Iprat 2.5/0.5MG 3 ML AMPUL.NEB INHALE ×2 (14:56→19:53)
[2021-05-13 16:34] LABS: Glucose, Whole Blood 131 mg/dL (60-115)
[2021-05-13 19:53] LABS: Glucose, Whole Blood 160 mg/dL (60-115)
[2021-05-13] MEDS: Benzonatate 100 MG CAPSULE PO (20:03)
[2021-05-13] MEDS: Insulin Lispro 100 UNIT/ML 3 ML VIAL SUBCUT (20:03)
[2021-05-13] MEDS: Atorvastatin Calcium 80 MG TABLET PO (20:03)
[2021-05-13] MEDS: Insulin Glargine,Hum.rec.anlog 100 UNIT/ML 10 ML VIAL 15 UNIT SUBCUT (20:04)
[2021-05-13] MEDS: Melatonin 3 MG TABLET 6 MG PO (22:00)
[2021-05-14] VITALS (12 sets, daily range): BP systolic 125–163; BP diastolic 58–72; PULSE 61–92; RESP 17–18; TEMP 36–37.1; O2SAT 88–96
[2021-05-14] MEDS: Heparin Sodium,Porcine 5,000 UNIT/ML VIAL 5000 UNIT SUBCUT ×3 (05:59→20:56)
[2021-05-14] MEDS: methylPREDNISolone Sod Succ 40 MG/ML VIAL IVPUSH ×2 (05:59→17:29)
[2021-05-14 07:29] LABS: Glucose, Whole Blood 133 mg/dL (60-115)
[2021-05-14] MEDS: Gabapentin 100 MG CAPSULE PO ×3 (07:30→20:56)
[2021-05-14] MEDS: Multivitamin TABLET 1 TAB PO (07:30)
[2021-05-14] MEDS: Aspirin Enteric Coated 81 MG TABLET.DR PO (07:30)
[2021-05-14] MEDS: Metoprolol Tartrate 50 MG TABLET PO ×2 (07:30→20:55)
[2021-05-14] MEDS: Acetaminophen 325 MG TABLET 650 MG PO ×2 (07:31→14:25)
[2021-05-14] MEDS: Benzonatate 100 MG CAPSULE PO ×2 (07:32→17:38)
[2021-05-14] MEDS: 0.9 % Sodium Chloride Flush 3 ML SYRINGE IVFLUSH ×2 (07:32→17:30)
[2021-05-14] MEDS: Furosemide 40 MG TABLET 120 MG PO (07:32)
--- NOTE | 2021-05-14 08:34 | PM.DS ---
DS: Providers Provider Date of Service: 05/15/21 Date of admission: 05/12/21 12:55 Primary care physician: Unknown Physician Consults: 05/12/21 12:55 Consult to Nephrology Routine Consulting Provider: Star Vasquez Reason for consultation: esrd DS: Diagnosis Discharge Diagnosis (1) End stage chronic kidney disease: Status: Acute (2) HTN (hypertension): Status: Acute (3) RSV (respiratory syncytial virus infection): Status: Acute (4) Anemia: Status: Acute DS: Summary Hospital Course Hospital Course: patient was admitted for acute hypoxic respiratory failure due to RSV. she was given steroids and bronchodilators. her symptoms significantly improved. she was able to be weaned off oxygen. she will be discharged home on 5 more days of oral prednisone. Time Spent with Patient Time attestation: Total time spent providing and/or coordinating discharge services: Discharge coordination time: Greater than 30 minutes Quality: Stroke Does the patient have a stroke diagnosis?: No Physical Exam Vital Signs: Vital Signs: Last Vital Signs Temp 97.1 F 05/14/21 07:20 Pulse 71 05/14/21 07:20 Resp 18 05/14/21 07:20 BP 142/64 H 05/14/21 07:20 Pulse Ox 95 05/14/21 07:25 Body Mass Index 24.8 General: AO X 3, no acute distress Resp: CTA bilateral, no accessory muscles used CVS: S1,S2,RRR GI: soft, non tender, non distended Neuro: motor grossly intact, alert Psych: appropriate affect, appropriate insight DS: Data Data Completed and Pending Completed studies during hospitalization [Text1]: Procedures Performance of Urinary Filtration, Intermittent, Less than 6 Hours Per Day (12/30/20) Labs on day of discharge: Laboratory Results - last 24 hr 05/13/21 05/13/21 05/13/21 11:19 16:05 19:21 POC Glucose 139 H 131 H 160 H 05/14/21 07:23 POC Glucose 133 H Preliminary micro results at discharge 05/12/21 10:48 Blood Culture - Preliminary Blood - Venous No growth after 24 hours. 05/12/21 10:33 Blood Culture - Preliminary Blood - Venous No growth after 24 hours. Discharge Plan Discharge Patient Disposition: Home, Self-Care Discharge Diagnosis: rsv Referrals: Physician,Unknown J [Primary Care Provider] - 1 Week Discharge Medications: New prednisone 20 mg tablet 40 mg PO DAILY Qty: 10 RF: 0 dextromethorphan HBr 10 mg/5 mL liquid 10 mg PO Q6H PRN (Reason: cough) Qty: 118 RF: 0 Continued metoprolol tartrate 100 mg tablet 50 mg PO BID RF: 0 docusate sodium 100 mg capsule 1 cap PO DAILY RF: 0 ergocalciferol (vitamin D2) 1,250 mcg (50,000 unit) capsule 1 cap PO SARKAR RF: 0 Lantus Solostar U-100 Insulin 100 unit/mL (3 mL) insulin pen 19 unit subcut DAILY RF: 0 Nephro-Gemini 0.8 mg tablet 1 tab PO DAILY RF: 0 atorvastatin 80 mg tablet 1 tab PO BEDTIME RF: 0 gabapentin 100 mg capsule 1 cap PO TID RF: 0 aspirin 81 mg Tablet,Delayed Release (Dr/Ec) 81 mg PO DAILY RF: 0 furosemide 40 mg tablet 120 mg PO DAILY RF: 0 Discharge Orders: Discharge Order (Routine); Ordered 05/15/21 Ordered By: Macario Nichols Diet: advance to usual diet Activity on Discharge: As tolerated Stand Alone Forms: Patient Portal Discharge page, Work/School Release Care Plan Goals: recovery Health Concerns: rsv Plan of Treatment: 5 more days prednisone Assessment: see above
--- NOTE | 2021-05-14 08:37 | MHC.CM.PN ---
PT WILL DC HOME TODAY WITH NO SERVICES PT HAS SELF ARRANGED TRANSPORT
--- NOTE | 2021-05-14 09:31 | P.PNIM_ITS ---
Subjective Subjective Date of Service: 05/14/21 Interval History: cc: sob intervla history: overall improved, a bit worse today, cough Cardiovascular Cardiovascular: Reports no additional cardiovascular complaints Gastrointestinal Gastrointestinal: Reports no additional gastrointestinal complaints Physical Exam Vital Signs: Vital Signs: Last Vital Signs Temp 97.1 F 05/14/21 07:20 Pulse 71 05/14/21 07:20 Resp 18 05/14/21 07:20 BP 142/64 H 05/14/21 07:20 Pulse Ox 88 L 05/14/21 09:03 Body Mass Index 24.8 General: AO X 3, no acute distress Resp: CTA bilateral, no accessory muscles used CVS: S1,S2,RRR GI: soft, non tender, non distended Neuro: motor grossly intact, alert Psych: appropriate affect, appropriate insight Objective Data Active Medications Acetaminophen (Acetaminophen 325 Mg Tablet) 650 mg PO Q6H PRN PRN Reason: Pain, Mild (Pain Scale 1-3) Last Admin: 05/14/21 07:31 Dose: 650 mg Documented by: DONTA Albuterol/Ipratropium (Albuterol/Iprat 2.5/0.5mg 3 Ml Ampul.Neb) 3 ml INHALE Q4H PRN PRN Reason: sob Last Admin: 05/13/21 19:53 Dose: 3 ml Documented by: SANTIAGO Aspirin (Aspirin Enteric Coated 81 Mg Tablet.Dr) 81 mg PO DAILY [facility] Last Admin: 05/14/21 07:30 Dose: 81 mg Documented by: DONTA Atorvastatin Calcium (Atorvastatin Calcium 80 Mg Tablet) 80 mg PO BEDTIME [facility] Last Admin: 05/13/21 20:03 Dose: 80 mg Documented by: HARDIK Benzonatate (Benzonatate 100 Mg Capsule) 100 mg PO TID PRN PRN Reason: Cough Last Admin: 05/14/21 07:32 Dose: 100 mg Documented by: DONTA Dextrose (Dextrose 50 % 25 Gm/50 Ml Vial) 25 gm IVPUSH Q15M PRN; Protocol PRN Reason: per Hypoglycemia Standing Ord. Docusate Sodium (Docusate Sodium 100 Mg Capsule) 100 mg PO DAILY [facility] Last Admin: 05/14/21 07:32 Dose: Not Given Documented by: DONTA Non-Admin Reason: Patient Refused Ergocalciferol (Ergocalciferol (Vitamin D2) 1,250 Mcg Capsule) 1,250 mcg PO Hutton [facility] Last Admin: 05/13/21 08:14 Dose: 1,250 mcg Documented by: GUERA Furosemide (Furosemide 40 Mg Tablet) 120 mg PO DAILY [facility]; Protocol Last Admin: 05/14/21 07:32 Dose: 120 mg Documented by: DONTA Gabapentin (Gabapentin 100 Mg Capsule) 100 mg PO TID [facility] Last Admin: 05/14/21 07:30 Dose: 100 mg Documented by: DONTA Glucose (Glucose Gel 15 Gm Gel..Gram.) 15 gm PO Q15M PRN; Protocol PRN Reason: per Hypoglycemia Standing Ord. Heparin Sodium (Porcine) (Heparin Sodium,Porcine 5,000 Unit/Ml Vial) 5,000 unit SUBCUT Q8H [facility] Last Admin: 05/14/21 05:59 Dose: 5,000 unit Documented by: LEONARDO Insulin Glargine (Insulin Glargine,Hum.Rec.Anlog 100 Unit/Ml 10 Ml Vial) 15 unit SUBCUT BEDTIME [facility] Last Admin: 05/13/21 20:04 Dose: 15 unit Documented by: HARDIK Insulin Human Lispro (Insulin Lispro 100 Unit/Ml 3 Ml Vial) 0 unit SUBCUT QIDACHS [facility]; Protocol Last Admin: 05/14/21 07:29 Dose: Not Given Documented by: DONTA Non-Admin Reason: No Insulin Coverage Melatonin (Melatonin 3 Mg Tablet) 6 mg PO BEDTIME PRN PRN Reason: Insomnia Last Admin: 05/13/21 22:00 Dose: 6 mg Documented by: HARDIK Methylprednisolone Sodium Succinate (Methylprednisolone Sod Succ 40 Mg/Ml Vial) 40 mg IVPUSH Q12H [facility] Last Admin: 05/14/21 05:59 Dose: 40 mg Documented by: LEONARDO Metoprolol Tartrate (Metoprolol Tartrate 50 Mg Tablet) 50 mg PO BID [facility]; Protocol Last Admin: 05/14/21 07:30 Dose: 50 mg Documented by: DONTA Multivitamins/Vitamin C (Multivitamin Tablet) 1 tab PO DAILY [facility] Last Admin: 05/14/21 07:30 Dose: 1 tab Documented by: DONTA Pharmacy Consult (Consult Rx Perform Med Rec) 1 each MISCELLANE ONCE PRN PRN Reason: Consult order Sodium Chloride (0.9 % Sodium Chloride Flush 3 Ml Syringe) 3 ml IVFLUSH QSHIFT [facility] Last Admin: 05/14/21 07:32 Dose: 3 ml Documented by: DONTA Labs CBC & Chem 7: 05/13/21 05:20 05/13/21 05:20 Labs: Laboratory Results - last 24 hr 05/13/21 05/13/21 05/13/21 11:19 16:05 19:21 POC Glucose 139 H 131 H 160 H 05/14/21 07:23 POC Glucose 133 H Microbiology Microbiology Results: Microbiology 05/12/21 10:48 Blood Culture - Preliminary Blood - Venous No growth after 24 hours. 05/12/21 10:33 Blood Culture - Preliminary Blood - Venous No growth after 24 hours. Assessment and Plan (1) RSV (respiratory syncytial virus infection): Status: Acute (2) End stage chronic kidney disease: Status: Acute Assessment and Plan: 66F presented with sob Acute hypoxic respiratory failure secondary to RSV improving, was planning on discharge today, however, became hypoxic to 88% on ro om air continue IV steroids, bronchodilators Wean O2 as tolerated End-stage renal disease On hemodialysis Nephrology eval Coronary disease asa, lipitor Diabetes Basal bolus insulin, monitor point of care Hypertension Lopressor Chronic diastolic CHF Continue with Lasix, does make some urine DVT prophylaxis with heparin subQ Full code Quality Stroke Does the patient have a stroke diagnosis?: No VTE Prior VTE?: No VTE Risk Level:: Medical - moderate - high VTE Device Contraindication: Treatment Not Indicated VTE Drug Contraindication: N/A - Med Ordered
--- NOTE | 2021-05-14 10:22 | MHC.CLN ---
NUTRITION PATIENT WITH DX END STAGE RENAL DISEASE AND RECEIVES HEMODIALYSIS FRIDAY, FRIDAY, FRIDAY. HAS BEEN RECEIVING DIALYSIS FOR ABOUT ONE YEAR. DIET CHANGED FOR DIALYSIS NEEDS: DIABETIC 1800 KCAL, 2 GRAM SODIUM, LOW POTASSIUM, LOW PHOSPHOROUS.
--- NOTE | 2021-05-14 10:47 | P.PNNP_ITS ---
Subjective Subjective Date of Service: 05/14/21 Interval history: Seen AM. Events noted. All recent data reviewed Physical Exam Vital Signs: Vital Signs: Last Vital Signs Temp 97.1 F 05/14/21 07:20 Pulse 71 05/14/21 07:20 Resp 18 05/14/21 07:20 BP 142/64 H 05/14/21 07:20 Pulse Ox 88 L 05/14/21 09:03 Body Mass Index 24.8 Const: General: no acute distress Orientation/consciousness: patient oriented x3 Eyes: EOM: EOMs intact bilaterally Neck: Neck: Yes no JVD Resp: Auscultation: diminished lung sounds Cardio: Rate: regular rate GI: Palpation (GI): Soft to palpation Neuro: General: patient oriented x3 and moves all extremities Objective Data Labs CBC & Chem 7: 05/13/21 05:20 05/13/21 05:20 Labs: Laboratory Results - last 24 hr 05/13/21 05/13/21 05/13/21 11:19 16:05 19:21 POC Glucose 139 H 131 H 160 H 05/14/21 07:23 POC Glucose 133 H Microbiology Microbiology Results: Microbiology 05/12/21 10:48 Blood - Venous Blood Culture - Preliminary No growth after 24 hours. 05/12/21 10:33 Blood - Venous Blood Culture - Preliminary No growth after 24 hours. Procedures Date of Service Date of Service: 05/14/21 Assessment & Plan Assessment and plan (1) End stage chronic kidney disease: Status: Acute Assessment and Plan: Usually gets HD TTS ( [facility]) and UF on Mondays Not clinically hypervolemic needing UF today Shall dialyze tomorrow AM 2 Gram K, 2 Gram Na, Phosphorus restricted diet with fluid restriction 1200mls /24 hours Anemia of Chronic Disease Ordered Procrit for today Time Spent With Patient Time: Total time spent is greater than 50% in coordination of care (as documented) at patient's floor/unit and/or counseling patient: Progress Note: Quality Stroke Does the patient have a stroke diagnosis?: No
--- NOTE | 2021-05-14 11:35 | MHC.CDI.CONC ---
CDI Concurrent Query Documentation Clarification: PHYSICIAN'S DOCUMENTATION REQUEST Date of Query: 05/14/21 1135 Patient Name: Shy Ryan Admit Date: 05/12/21 Dear Doctor, A review of the medical record indicates additional documentation may be needed. Please review below and update the documentation accordingly. Risk Factors/Clinical Indicators/Treatments ESRD Cr: 05/12 - 3.04 05/13 - 5.37 H GFR 11/02 BUN 9/ H On Hemodialysis, Nephrology consult. Based on the above, could you clarify in the Progress Notes the appropriate diagnosis, if significant, that supports the above abnormalities and additional evaluation, monitoring, and/or treatment rendered: Acute on chronic renal failure Stage 5 (ESRD) End stage renal disease Other (please specify) Unable to determine Use of terms such as suspected, likely, concern for, or probable (associated with a specific diagnosis that is being evaluated, monitored, or treated as if it exists) are acceptable and can be coded in the inpatient setting, when documented at the time of discharge. Thank you, Katy Borja [facility], CDIS Extension: [phone] Please use your independent medical judgment in providing your response. THIS QUERY IS PART OF THE PERMANENT MEDICAL RECORD Provider Response: Other Other Diagnosis: ESRD
[2021-05-14 11:36] LABS: Glucose, Whole Blood 178 mg/dL (60-115)
[2021-05-14] MEDS: Insulin Lispro 100 UNIT/ML 3 ML VIAL SUBCUT ×3 (11:46→20:57)
[2021-05-14] MEDS: Albuterol/Iprat 2.5/0.5MG 3 ML AMPUL.NEB INHALE (15:33)
[2021-05-14 16:04] LABS: Glucose, Whole Blood 207 mg/dL (60-115)
[2021-05-14] MEDS: LORazepam 0.5 MG TABLET 0.25 MG PO (17:37)
[2021-05-14 20:46] LABS: Glucose, Whole Blood 256 mg/dL (60-115)
[2021-05-14] MEDS: Atorvastatin Calcium 80 MG TABLET PO (20:54)
[2021-05-14] MEDS: Insulin Glargine,Hum.rec.anlog 100 UNIT/ML 10 ML VIAL 15 UNIT SUBCUT (20:57)
--- NOTE | 2021-05-14 22:39 | PC.NURSE ---
left arm fistula positive for thrill and bruit
[2021-05-14] MEDS: Melatonin 3 MG TABLET 6 MG PO (22:56)
[2021-05-15 04:00] VITALS: BP 119/56; PULSE 67; RESP 17; TEMP 36.6; O2SAT 95
[2021-05-15] MEDS: Heparin Sodium,Porcine 5,000 UNIT/ML VIAL 5000 UNIT SUBCUT (04:55)
[2021-05-15 05:30] LABS: Hemoglobin 8.7 g/dl (12.0-16.0); Mean Corpuscular HGB Conc 33.5 g/dl (31.0-35.0); Mean Corpuscular Hemoglobin 34.5 pg (27.0-33.0); Mean Corpuscular Volume 103.2 fL (80.0-98.0); Mean Platelet Volume 9.4 fL (9.4-12.3); NRBC Pct Auto 0.1 /100WBC (0.0-0.2); Platelet Count 214 X10*3/uL (160-400); Red Blood Count 2.52 X10*6/uL (4.20-5.50); Red Cell Distribution Width 14.9 % (11.0-16.0); White Blood Count 16.7 X10*3/uL (4.8-10.8)
[2021-05-15 05:50] LABS: Anion Gap 22 (12-20); Blood Urea Nitrogen 78 mg/dL (9-16); Calcium 8.5 mg/dL (8.4-10.2); Carbon Dioxide 25 mmol/L (22-29); Chloride 90 mmol/L (96-108); Creatinine Clr Calc Pharmacy 5.9; Estimated Glomerular Filt Rate 5; Glucose Fasting 120 mg/dL (60-99); Potassium 3.9 mmol/L (3.3-5.1); Sodium 133 mmol/L (135-145)
[2021-05-15] MEDS: methylPREDNISolone Sod Succ 40 MG/ML VIAL IVPUSH (05:56)
[2021-05-15] MEDS: Acetaminophen 325 MG TABLET 650 MG PO (05:59)
[2021-05-15 07:00] VITALS: BP 138/69; PULSE 68; RESP 16; O2SAT 95
[2021-05-15 07:21] LABS: Glucose, Whole Blood 156 mg/dL (60-115)
[2021-05-15] MEDS: Insulin Lispro 100 UNIT/ML 3 ML VIAL SUBCUT ×2 (07:31→12:11)
[2021-05-15 08:07] VITALS: TEMP 36.3
[2021-05-15] MEDS: Benzonatate 100 MG CAPSULE PO (08:07)
[2021-05-15] MEDS: 0.9 % Sodium Chloride Flush 3 ML SYRINGE IVFLUSH (08:08)
--- NOTE | 2021-05-15 10:44 | PM.PNNEP ---
Subjective Subjective Date of Service: 05/15/21 Interval history: Seen on HD AM. Events noted. All recent data reviewed. D/W HD RN Physical Exam Vital Signs: Vital Signs: Last Vital Signs Temp 97.4 F 05/15/21 08:07 Pulse 68 05/15/21 07:00 Resp 16 05/15/21 07:00 BP 138/69 05/15/21 07:00 Pulse Ox 95 05/15/21 07:00 Body Mass Index 24.8 Const: General: cooperative Orientation/consciousness: patient oriented x3 HENMT: Head: Yes normocephalic Mouth: Normal oral and palatal mucosa present Eyes: EOM: EOMs intact bilaterally Neck: Neck: Yes supple Resp: Auscultation: diminished lung sounds Cardio: Rate: regular rate GI: Palpation (GI): Soft to palpation Neuro: General: patient oriented x3 and moves all extremities Objective Data Labs CBC & Chem 7: 05/15/21 05:18 05/15/21 05:18 Labs: Laboratory Results - last 24 hr 05/14/21 05/14/21 05/14/21 11:22 15:25 19:23 WBC RBC Hgb Hct MCV MCH MCHC RDW Plt Count MPV Absolute Nucleated RBC Nucleated RBC % (auto) Sodium Potassium Chloride Carbon Dioxide Anion Gap BUN Creatinine Estim Creat Clear Calc Estimated GFR POC Glucose 178 H 207 H 256 H Fasting Glucose Calcium 05/15/21 05/15/21 05/15/21 05:18 05:18 07:18 WBC 16.7 H RBC 2.52 L Hgb 8.7 L Hct 26.0 L MCV 103.2 H MCH 34.5 H MCHC 33.5 RDW 14.9 Plt Count 214 D MPV 9.4 Absolute Nucleated RBC 0.020 H Nucleated RBC % (auto) 0.1 Sodium 133 L Potassium 3.9 Chloride 90 L Carbon Dioxide 25 Anion Gap 22 H BUN 78 H D Creatinine 8.75 H* Estim Creat Clear Calc 5.9 Estimated GFR 5 POC Glucose 156 H Fasting Glucose 120 H Calcium 8.5 Microbiology Microbiology Results: Microbiology 05/12/21 10:48 Blood - Venous Blood Culture - Preliminary No growth after 48 hours. 05/12/21 10:33 Blood - Venous Blood Culture - Preliminary No growth after 48 hours. Procedures Date of Service Date of Service: 05/15/21 Assessment & Plan Assessment and plan (1) End stage chronic kidney disease: Status: Acute Assessment and Plan: [facility] and UF on Mondays Seen on HD AM. Tolerating HD well Hemodynamics stable on HD 2 Gram K, 2 Gram Na, Phosphorus restricted diet with fluid restriction 1200mls/24 hours Anemia of Chronic Disease Given Procrit Shall arrange HD follow up in [facility] HD unit on if D/[place] Time Spent With Patient Time: Total time spent is greater than 50% in coordination of care (as documented) at patient's floor/unit and/or counseling patient: Progress Note: Quality Stroke Does the patient have a stroke diagnosis?: No
[2021-05-15 12:00] LABS: Glucose, Whole Blood 160 mg/dL (60-115)
[2021-05-15] MEDS: Furosemide 40 MG TABLET 120 MG PO (12:10)
[2021-05-15] MEDS: Metoprolol Tartrate 50 MG TABLET PO (12:10)
[2021-05-15] MEDS: Gabapentin 100 MG CAPSULE PO (12:10)
[2021-05-15] MEDS: Multivitamin TABLET 1 TAB PO (12:11)
[2021-05-15] MEDS: Aspirin Enteric Coated 81 MG TABLET.DR PO (12:11)
== END 2021-05-15 14:55 | disposition home or self-care (01) | DRG 133 ==
LOC: HO.ED 12:14 → HO.EDOVER 13:00 → HO.S3 17:37
PROVIDERS: Physician Assistant; Admitting Provider Internal Medicine; Emergency Provider Emergency Medicine Emergency Medical Services; PCP Internal Medicine; Visit Provider Internal Medicine
DX: J96.01 Acute respiratory failure with hypoxia (principal); I13.2 Hypertensive heart and chronic kidney disease with heart failure and with stage 5 chronic kidney disease, or end stage renal disease; E11.22 Type 2 diabetes mellitus with diabetic chronic kidney disease; N18.6 End stage renal disease; E78.5 Hyperlipidemia, unspecified; I25.10 Atherosclerotic heart disease of native coronary artery without angina pectoris; D63.1 Anemia in chronic kidney disease; B97.4 Respiratory syncytial virus as the cause of diseases classified elsewhere; Z20.822 Contact with and (suspected) exposure to COVID-19; I50.32 Chronic diastolic (congestive) heart failure; Z87.891 Personal history of nicotine dependence; Z99.2 Dependence on renal dialysis; Z79.4 Long term (current) use of insulin; Z79.82 Long term (current) use of aspirin; Z79.899 Other long term (current) drug therapy
CPT/HCPCS: 0241U; 36415; 71045; 80048; 80076; 82728; 82947; 83605; 83615; 83735; 83880; 84484; 85025; 85027; 86140; 87040; 90999; 93005; 94640; 96374; 99285; J0885; J2920; J2930

== ENCOUNTER 2021-06-26 08:06 | Inpatient (IN) | payer BC, MEDICARE, SELFPAY ==
--- NOTE | ~2021-06-26 | XR_ITS ---
EXAMINATION: XR CHEST CLINICAL INFORMATION: Shortness of breath. Dialysis patient. COMPARISON: May 12, 2021 TECHNIQUE: AP portable view of the chest was obtained. FINDINGS: There are bilateral regions of density present most prominent at the left lower lobe. No definite perihilar haziness identified and the azygos vein is not distended so I cannot say that the disease present is related to acute pulmonary edema and this may be related to pneumonitis. Left innominate/subclavian vein stent seen in place. No pneumothorax is seen. There appears to be a small left pleural effusion. Heart normal size. XR/XR chest 1V IMPRESSION: Bilateral regions of disease left greater than right which may be sequela of previous improved airspace edema or possible pneumonitis.
[2021-06-26 08:15] VITALS: BP 200/90; BP 201/89; PULSE 92; RESP 22; TEMP 36.7; O2SAT 87; BMI 29.0
--- NOTE | 2021-06-26 08:29 | ED_ITS ---
HPI - General Adult General Chief complaint: Upper Respiratory Symptoms Stated complaint: SOB,SORE THROAT, RUNNY NOSE,? COVID Time Seen by Provider: 06/26/21 08:20 Source: patient Mode of arrival: ambulatory Limitations: no limitations History of Present Illness HPI narrative: Patient comes to the emergency room complaining of shortness of breath. Patient states that yesterday she was supposed to get an additional dose of dialysis to remove 2 additional L of fluid. Patient states that she is also recovering from RSV. Patient is due for dialysis today. 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 Patient states that she drives herself to dialysis. But today, she was very short of breath. Per EMS, oxygen saturation was 90% on room air, patient does not usually use oxygen. Related Data Home Medications Medication Instructions Recorded Confirmed docusate sodium 100 mg capsule 1 cap PO DAILY 12/30/20 05/12/21 ergocalciferol (vitamin D2) 1,250 1 cap PO SARKAR 12/30/20 05/12/21 mcg (50,000 unit) capsule insulin glargine 100 unit/mL (3 19 unit SUBCUT DAILY 12/30/20 05/12/21 mL) subcutaneous pen (Lantus Solostar U-100 Insulin) metoprolol tartrate 100 mg tablet 50 mg PO BID 12/30/20 05/12/21 furosemide 40 mg tablet 120 mg PO DAILY 01/23/21 05/12/21 aspirin 81 mg tablet,delayed 81 mg PO DAILY 05/12/21 05/12/21 release atorvastatin 80 mg tablet 1 tab PO BEDTIME 05/12/21 05/12/21 gabapentin 100 mg capsule 1 cap PO TID 05/12/21 05/12/21 vitamin B complex-vitamin C-folic 1 tab PO DAILY 05/12/21 05/12/21 acid 0.8 mg tablet (Nephro-Gemini) Previous Rx's Medication Instructions Recorded dextromethorphan HBr 10 mg/5 mL 10 mg (5 mL) PO Q6H PRN #118 ml 05/14/21 oral liquid prednisone 20 mg tablet 40 mg PO DAILY #10 tab 05/14/21 Allergies Allergy/AdvReac Type Severity Reaction Status Date / Time No Known Allergies Allergy Verified 01/23/21 14:15 [No Known Allergies*] Review of Systems Review of Systems: Constitutional : No Weight loss, No Fever, No Chills, No Night Sweats, No Fatigue, No Malaise ENT/Mouth : No Hearing loss, No Ear Pain, No Nasal Congestion, No Sinus Pain, No Hoarseness, No sore throat, No Rhinorrhea, No Swallowing Difficulty Eyes: No Eye Pain, No Swelling, No Redness, No Foreign Body, No Discharge, No Vision Changes Cardiovascular : No Chest Pain, complaining of worsening lower extremity edema and shortness of breath, worse with exertion Respiratory : No Cough, No Sputum, No Wheezing, No Smoke Exposure, complaining of Dyspnea Gastrointestinal : No Nausea, No Vomiting, No Diarrhea, No Constipation, No abdominal Pain, No Hematochezia, No Melena Genitourinary : no irregular bleeding, No Dysuria, No Urinary Frequency, No Hematuria, No Urinary Incontinence, No Urgency, No Flank Pain, No Urinary Flow Changes, No Hesitancy Musculoskeletal : No joint pain, No Myalgias, No Joint Swelling Skin : No Skin Lesions, No rash Neuro : No Weakness, No Numbness, No Paresthesias, No Loss of Consciousness, No Dizziness, No Headache Psych : No Anxiety/Panic, No Depression, No SI/HI/AH/VH, No Social Issues, Heme/Lymph: No Bruising, No Bleeding,No Lymphadenopathy Endocrine : No Polyuria, No Polydipsia, No Temperature Intolerance [facility] Past Medical History Medical History CAD (coronary artery disease) Diabetes End stage chronic kidney disease HTN (hypertension) HTN (hypertension) Hyperlipidemia Renal failure Surgical History Hx of cardiac catheterization Family History Family History Father No problems noted. Mother No problems noted. Social History Social History Household Members: None Housing: House Do you presently have visiting nurse or other home services: No Alcohol intake: never Patient Tobacco Use Status: Never used Tobacco Years Smoked: 4+ Use of substances other than those prescribed or required for medical reasons: No Advance Directives: Yes Advance Directives on File: Yes Advance Directives Date on File: 01/02/21 service: No Current occupational status: employed Physical Exam Vital Signs: Vital Signs: Last Vital Signs Temp 98.1 F 06/26/21 08:15 Pulse 88 06/26/21 11:37 Resp 19 06/26/21 11:37 BP 165/83 H 06/26/21 11:37 Pulse Ox 100 06/26/21 11:37 Oxygen Flow Rate 3 06/26/21 10:08 BMI result Body Mass Index 29.0 Const: Other: Appearance: Alert. Oriented X3. Seems short of breath, anxious, crying Eyes: Pupils equal, round and reactive to light. ENT: Pharynx normal. Neck: Normal inspection. Neck supple. No lymph nodes noted. No crepitus CVS: Normal heart rate and rhythm. Pulses normal. Normal S1 and S2 Respiratory: Oxygen saturation drops to 83% when oxygen is turned off. Decreased breath sounds bilaterally, crackles in both bases, no wheezing Abdomen: Soft and nontender. No rigidity. No distention. good BS x4 Skin: Skin warm and dry. Normal skin color. Normal skin turgor. Extremities: +2 pitting edema. No Lacerations. No Rash Neuro: Oriented X 3. No motor deficit. No sensory deficit. Moving all extermities. No slurred speech. Course Course Course Narrative: On arrival to the emergency room, patient was put on room air, her oxygen saturation dropped to 83%. 2 L were started, O2 improved to 87%. Patient is now on 4 L saturating at 94% patient's labs are at baseline. However, patient does need dialysis, Without oxygen, patient's oxygen saturation drops significantly. Patient refused CT scan. Her usual dialysis place states that if she goes now, she can have dialysis for 2 hours since a close in 25 hours. However, patient has no t ransportation, the ambulance would be here in approximately 2 hours. Therefore, patient would not be able to get any dialysis at all. I discussed the patient with Dr. Macedo, patient will be admitted to the hospitalist service and patient will get dialysis today. Medical Decision Making Lab Data Result diagrams: 06/26/21 09:06 06/26/21 09:06 Labs: Lab Results 06/26/21 06/26/21 06/26/21 Range/Units 09:06 09:06 09:06 WBC 10.2 (4.8-10.8) X10*3/uL RBC 2.39 L (4.20-5.50) X10*6/uL Hgb 8.1 L (12.0-16.0) g/dl Hct 25.1 L (37.0-47.0) % MCV 105.0 H (80.0-98.0) fL MCH 33.9 H (27.0-33.0) pg MCHC 32.3 (31.0-35.0) g/dl RDW 14.1 (11.0-16.0) % Plt Count 166 (160-400) X10*3/uL MPV 9.5 (9.4-12.3) fL Immature Gran % (Auto) 0.2 (0.0-0.4) % Neut % (Auto) 71.0 (45-73) % Lymph % (Auto) 8.3 L (20-40) % Starr % (Auto) 6.0 (2-11) % Eos % (Auto) 14.1 H (0-4) % Baso % (Auto) 0.4 (0-2) % Lymph # (Auto) 0.9 L (1.2-4.9) X10*3/uL Starr # (Auto) 0.6 (0.1-1.2) X10*3/uL Eos # (Auto) 1.4 H (0.0-0.4) X10*3/uL Baso # (Auto) 0.0 (0.0-0.2) X10*3/uL Abs Immat Gran (auto) 0.02 (0.00-0.03) X10*3/uL Absolute Neuts (auto) 7.3 (2.0-8.3) x10*3/uL Absolute Nucleated RBC 0.000 (0.0-0.012) X10*3/uL Nucleated RBC % (auto) 0.0 (0.0-0.2) /100WBC Sodium 141 (135-145) mmol/L Potassium 4.2 (3.3-5.1) mmol/L Chloride 103 (96-108) mmol/L Carbon Dioxide 25 (22-29) mmol/L Anion Gap 17 (12-20) BUN 42 H (9-16) mg/dL Creatinine 7.66 H* (0.5-1.4) mg/dL Estim Creat Clear Calc 5.6 Estimated GFR 5 Random Glucose 102 (60-115) mg/dL Lactic Acid 0.6 (0.5-2.0) mmol/L Calcium 8.6 (8.4-10.2) mg/dL Total Bilirubin 0.5 (0.0-1.0) mg/dL Direct Bilirubin 0.3 (0.0-0.5) mg/dL AST 34 H (5-31) U/L ALT 11 (0-31) U/L Alkaline Phosphatase 85 (39-117) U/L B-Natriuretic Peptide (<100) pg/mL Total Protein 7.1 (6.5-8.0) g/dL Albumin 3.6 (3.5-5.0) g/dL Influenza Type A (PCR) (Negative) Influenza Type B (PCR) (Negative) RSV RNA Qual (PCR) (Negative) SARS-CoV-2 RNA (RT-PCR) (Negative) 06/26/21 06/26/21 Range/Units 09:06 09:08 WBC (4.8-10.8) X10*3/uL RBC (4.20-5.50) X10*6/uL Hgb (12.0-16.0) g/dl Hct (37.0-47.0) % MCV (80.0-98.0) fL MCH (27.0-33.0) pg MCHC (31.0-35.0) g/dl RDW (11.0-16.0) % Plt Count (160-400) X10*3/uL MPV (9.4-12.3) fL Immature Gran % (Auto) (0.0-0.4) % Neut % (Auto) (45-73) % Lymph % (Auto) (20-40) % Starr % (Auto) (2-11) % Eos % (Auto) (0-4) % Baso % (Auto) (0-2) % Lymph # (Auto) (1.2-4.9) X10*3/uL Starr # (Auto) (0.1-1.2) X10*3/uL Eos # (Auto) (0.0-0.4) X10*3/uL Baso # (Auto) (0.0-0.2) X10*3/uL Abs Immat Gran (auto) (0.00-0.03) X10*3/uL Absolute Neuts (auto) (2.0-8.3) x10*3/uL Absolute Nucleated RBC (0.0-0.012) X10*3/uL Nucleated RBC % (auto) (0.0-0.2) /100WBC Sodium (135-145) mmol/L Potassium (3.3-5.1) mmol/L Chloride (96-108) mmol/L Carbon Dioxide (22-29) mmol/L Anion Gap (12-20) BUN (9-16) mg/dL Creatinine (0.5-1.4) mg/dL Estim Creat Clear Calc Estimated GFR Random Glucose (60-115) mg/dL Lactic Acid (0.5-2.0) mmol/L Calcium (8.4-10.2) mg/dL Total Bilirubin (0.0-1.0) mg/dL Direct Bilirubin (0.0-0.5) mg/dL AST (5-31) U/L ALT (0-31) U/L Alkaline Phosphatase (39-117) U/L B-Natriuretic Peptide 747 H (<100) pg/mL Total Protein (6.5-8.0) g/dL Albumin (3.5-5.0) g/dL Influenza Type A (PCR) NEGATIVE (Negative) Influenza Type B (PCR) NEGATIVE (Negative) RSV RNA Qual (PCR) NEGATIVE (Negative) SARS-CoV-2 RNA (RT-PCR) NEGATIVE (Negative) Discharge Plan Discharge Clinical Impression: End stage chronic kidney disease, Acute dyspnea Patient Disposition: Admitted As Inpatient Prescriptions: No Action metoprolol tartrate 100 mg tablet 50 mg PO BID RF: 0 docusate sodium 100 mg capsule 1 cap PO DAILY RF: 0 ergocalciferol (vitamin D2) 1,250 mcg (50,000 unit) capsule 1 cap PO SARKAR RF: 0 Lantus Solostar U-100 Insulin 100 unit/mL (3 mL) insulin pen 19 unit subcut DAILY RF: 0 Nephro-Gemini 0.8 mg tablet 1 tab PO DAILY RF: 0 atorvastatin 80 mg tablet 1 tab PO BEDTIME RF: 0 gabapentin 100 mg capsule 1 cap PO TID RF: 0 aspirin 81 mg Tablet,Delayed Release (Dr/Ec) 81 mg PO DAILY RF: 0 prednisone 20 mg tablet 40 mg PO DAILY Qty: 10 RF: 0 dextromethorphan HBr 10 mg/5 mL liquid 10 mg PO Q6H PRN (Reason: cough) Qty: 118 RF: 0 furosemide 40 mg tablet 120 mg PO DAILY RF: 0
--- NOTE | 2021-06-26 08:29 | ECG_ITS ---
Test Reason : dyspnea Blood Pressure : / mmHG Vent. Rate : 089 BPM Atrial Rate : 089 BPM P-R Int : 166 ms QRS Dur : 084 ms QT Int : 392 ms P-R-T Axes : 041 018 028 degrees QTc Int : 476 ms Normal sinus rhythm Normal ECG When compared to the previous EKG of No significant changes seen Referred By: Carmencita Dickey Electronically Signed By:Shan Conklin
[2021-06-26 09:14] LABS: MANUAL DIFF FLAG NO
[2021-06-26 09:15] LABS: Basophils Percent Auto 0.4 % (0-2); Eosinophils Absolute Auto 1.4 X10*3/uL (0.0-0.4); Eosinophils Percent Auto 14.1 % (0-4); Hematocrit 25.1 % (37.0-47.0); Hemoglobin 8.1 g/dl (12.0-16.0); Imm Gran Abs Auto 0.02 X10*3/uL (0.00-0.03); Imm Gran Pct Auto 0.2 % (0.0-0.4); Lymphocytes Absolute Auto 0.9 X10*3/uL (1.2-4.9); Lymphocytes Percent Auto 8.3 % (20-40); Mean Corpuscular HGB Conc 32.3 g/dl (31.0-35.0); Mean Corpuscular Hemoglobin 33.9 pg (27.0-33.0); Mean Platelet Volume 9.5 fL (9.4-12.3); Monocytes Absolute Auto 0.6 X10*3/uL (0.1-1.2); Neutrophils Absolute Auto 7.3 x10*3/uL (2.0-8.3); Platelet Count 166 X10*3/uL (160-400); Red Blood Count 2.39 X10*6/uL (4.20-5.50); Red Cell Distribution Width 14.1 % (11.0-16.0); White Blood Count 10.2 X10*3/uL (4.8-10.8)
[2021-06-26 09:27] LABS: Lactic Acid 0.6 mmol/L (0.5-2.0)
[2021-06-26 09:38] LABS: Alanine Aminotransferase 11 U/L (0-31); Albumin Level 3.6 g/dL (3.5-5.0); Alkaline Phosphatase 85 U/L (39-117); Anion Gap 17 (12-20); Aspartate Amino Transferase 34 U/L (5-31); Bilirubin Direct 0.3 mg/dL (0.0-0.5); Bilirubin Total 0.5 mg/dL (0.0-1.0); Blood Urea Nitrogen 42 mg/dL (9-16); Calcium 8.6 mg/dL (8.4-10.2); Carbon Dioxide 25 mmol/L (22-29); Chloride 103 mmol/L (96-108); Creatinine Clr Calc Pharmacy 5.6; Estimated Glomerular Filt Rate 5; Glucose Random 102 mg/dL (60-115); Potassium 4.2 mmol/L (3.3-5.1); Sodium 141 mmol/L (135-145); Total Protein 7.1 g/dL (6.5-8.0)
[2021-06-26 09:39] LABS: B Type Natriuretic Peptide 747 pg/mL (<100)
[2021-06-26] MEDS: Nitroglycerin 2 % Oint 1 GM Packet 1 INCH TRANSDERMA (09:42)
[2021-06-26] MEDS: Furosemide 100 MG/10 ML VIAL 80 MG IVPUSH (09:50)
[2021-06-26 10:00] VITALS: BP 186/87; PULSE 91; RESP 24; O2SAT 98
[2021-06-26 10:08] VITALS: O2SAT 100
[2021-06-26 10:18] LABS: Influenza A PCR NEGATIVE (Negative); Influenza B PCR NEGATIVE (Negative); Resp Syncy Virus RNA Qual PCR NEGATIVE (Negative); SARS COV2 PCR INHOUSE NEGATIVE (Negative)
--- NOTE | 2021-06-26 10:32 | PC.NURSE ---
pt reports that since Friday she has been experiencing sob and soar throat that has gotten worse over the past couple days. pt is on dialysis T, Th, Sat. per ems pt's O2 was 88-92% r/a. ems placed pt on 2L n/c which brought her to 99-100%. She reports that she was diagnosed with RSV about one month ago. Pt noted to be sob when speaking and with exertion satting at 85-87% on 2L n/c. O2 increased to 3L bringing her oxygen level to 99-100%. Pt's b/p 200/86 on arrival to the ed. pt denies headache, dizziness, chest pain. IV line established, labs drawn, meds given as documented. will continue to monitor.
[2021-06-26 11:37] VITALS: BP 165/83; PULSE 88; RESP 19; O2SAT 100
--- NOTE | 2021-06-26 14:21 | PM.IMHP ---
History of Present Illness Date of Service: 06/26/21 <Giuliana Mars NP - Last Filed: 06/26/21 15:26> Chief Complaint: Shortness of breath <Giuliana Mars NP - Last Filed: 06/26/21 15:26> 66-year-old woman presenting to the ER with runny nose, cold like symptoms But is recovering from RSV.. She has history of end-stage renal disease and is on dialysis Friday and Friday. Apparently she went to her dialysis center yesterday to get some extra water off and they did not have an extra chair for her so she was unable to have that done. She normally goes to dialysis clinic and Mag [facility] [address] but she was unable to drive herself therefore she came to the ER. Apparently her oxygen saturation was 90% on room air. She denied chest pain, vomiting, diarrhea. Her blood pressure was noted to be elevated with highest reading of 201/89, oxygen saturation of 87%. She was given a dose of IV Lasix nitroglycerin. She be admitted for dialysis. <Giuliana Mars NP - Last Filed: 06/26/21 15:26> Review of Systems Review of Systems: Denies any recent fever chills or decrease in appetite respiratory denies any shortness of breath coverage production cardiovascular Denies chest pain gastrointestinal denies any dysphagia abdominal pain nausea vomiting or diarrhea genitourinary denies any dysuria frequency or hematuria musculoskeletal denies any joint pain or swelling neuropsych denies any weakness or seizures all other systems reviewed are negative <Giuliana Mars NP - Last Filed: 06/26/21 15:26> [facility] Medical History: Medical History (Updated 06/26/21 @ 14:22 by Giuliana Mars NP) CAD (coronary artery disease) Diabetes End stage chronic kidney disease HTN (hypertension) Hyperlipidemia <Giuliana Mars NP - Last Filed: 06/26/21 15:26> Family History: Family History Father No problems noted. Mother No problems noted. <Giuliana Mars NP - Last Filed: 06/26/21 15:26> Surgical History: Surgical History Hx of cardiac catheterization <Giuliana Mars NP - Last Filed: 06/26/21 15:26> Social History: Social History Household Members: None Housing: House Do you presently have visiting nurse or other home services: No Alcohol intake: never Patient Tobacco Use Status: Never used Tobacco Years Smoked: 4+ Advance Directives Date on File: 01/02/21 service: No Current occupational status: employed <Giuliana Mars NP - Last Filed: 06/26/21 15:26> Meds Allergies/Adverse reactions: Allergies Allergy/AdvReac Type Severity Reaction Status Date / Time No Known Allergies Allergy Verified 01/23/21 14:15 [No Known Allergies*] <Giuliana Mars NP - Last Filed: 06/26/21 15:26> Active Medications: Current Medications Pharmacy Consult (Consult Rx Perform Med Rec) 1 each MISCELLANE ONCE PRN PRN Reason: Consult order <Giuliana Mars NP - Last Filed: 06/26/21 15:26> Home medications: Home Medications Medication Instructions Recorded Confirmed Last Taken Type docusate sodium 100 mg capsule 1 cap PO BEDTIME 12/30/20 06/26/21 06/25/21 History ergocalciferol (vitamin D2) 1,250 1 cap PO SARKAR 12/30/20 06/26/21 06/25/21 History mcg (50,000 unit) capsule insulin glargine 100 unit/mL (3 19 unit SUBCUT BEDTIME 12/30/20 06/26/21 06/25/21 History mL) subcutaneous pen (Lantus Solostar U-100 Insulin) metoprolol tartrate 100 mg tablet 50 mg PO BID 12/30/20 06/26/21 06/25/21 History furosemide 40 mg tablet 120 mg PO DAILY 01/23/21 06/26/21 06/25/21 History aspirin 81 mg tablet,delayed 81 mg PO DAILY 05/12/21 06/26/21 06/25/21 History release atorvastatin 80 mg tablet 1 tab PO BEDTIME 05/12/21 06/26/21 06/25/21 History gabapentin 100 mg capsule 3 cap PO DAILY 05/12/21 06/26/21 06/25/21 History isosorbide mononitrate 60 mg 1 tab PO DAILY 06/26/21 06/26/21 06/25/21 History tablet,extended release 24 hr omega-3 fatty acids 1,000 mg PO DAILY 06/26/21 06/26/21 06/25/21 History vitamin B complex-vitamin C-folic 1 tab PO DAILY 06/26/21 06/26/21 06/25/21 History acid 0.8 mg tablet (Nephro-Gemini) <Giuliana Mars NP - Last Filed: 06/26/21 15:26> Physical Exam Vital Signs and Narrative: Vital Signs: Last Vital Signs Temp 98.1 F 06/26/21 08:15 Pulse 88 06/26/21 11:37 Resp 19 06/26/21 11:37 BP 165/83 H 06/26/21 11:37 Pulse Ox 100 06/26/21 11:37 Oxygen Flow Rate 3 06/26/21 10:08 BMI result Body Mass Index 29.0 <Giuliana Mars NP - Last Filed: 06/26/21 15:26> Appearing in no acute distress head is normocephalic atraumatic eyes pupils are PERRLA sclera is anicteric mouth throat mucous membranes are intact and moist neck is supple no lymphadenopathy, no JVD noted lung sounds are clear to auscultation heart regular rate rhythm, clear S1, S2 positive bowel sounds, abdomen is soft, nontender neuro patient is alert x3, no focal deficits <Giuliana Mars NP - Last Filed: 06/26/21 15:26> Results Labs CBC and Chem 7: : 06/27/21 05:32 06/27/21 05:32 <Giuliana Mars NP - Last Filed: 06/26/21 15:26> Labs: Laboratory Results - last 24 hr 06/26/21 06/26/21 06/26/21 09:06 09:06 09:06 MCV 105.0 H MCH 33.9 H MCHC 32.3 RDW 14.1 Plt Count 166 MPV 9.5 Immature Gran % (Auto) 0.2 Neut % (Auto) 71.0 Lymph % (Auto) 8.3 L [place] % (Auto) 6.0 Eos % (Auto) 14.1 H Baso % (Auto) 0.4 Lymph # (Auto) 0.9 L [place] # (Auto) 0.6 Eos # (Auto) 1.4 H Baso # (Auto) 0.0 Abs Immat Gran (auto) 0.02 Absolute Neuts (auto) 7.3 Absolute Nucleated RBC 0.000 Nucleated RBC % (auto) 0.0 Anion Gap 17 Estim Creat Clear Calc 5.6 Estimated GFR 5 Random Glucose 102 Lactic Acid 0.6 Calcium 8.6 Total Bilirubin 0.5 Direct Bilirubin 0.3 AST 34 H ALT 11 Alkaline Phosphatase 85 B-Natriuretic Peptide Total Protein 7.1 Albumin 3.6 Influenza Type A (PCR) Influenza Type B (PCR) RSV RNA Qual (PCR) SARS-CoV-2 RNA (RT-PCR) 06/26/21 06/26/21 09:06 09:08 MCV MCH MCHC RDW Plt Count MPV Immature Gran % (Auto) Neut % (Auto) Lymph % (Auto) [place] % (Auto) Eos % (Auto) Baso % (Auto) Lymph # (Auto) [place] # (Auto) Eos # (Auto) Baso # (Auto) Abs Immat Gran (auto) Absolute Neuts (auto) Absolute Nucleated RBC Nucleated RBC % (auto) Anion Gap Estim Creat Clear Calc Estimated GFR Random Glucose Lactic Acid Calcium Total Bilirubin Direct Bilirubin AST ALT Alkaline Phosphatase B-Natriuretic Peptide 747 H Total Protein Albumin Influenza Type A (PCR) NEGATIVE Influenza Type B (PCR) NEGATIVE RSV RNA Qual (PCR) NEGATIVE SARS-CoV-2 RNA (RT-PCR) NEGATIVE <Giuliana Mars NP - Last Filed: 06/26/21 15:26> Imaging Radiologist's Impressions: Impressions Chest X-Ray 06/26/21 10:30 IMPRESSION: Bilateral regions of disease left greater than right which may be sequela of previous improved airspace edema or possible pneumonitis. <Giuliana Mars NP - Last Filed: 06/26/21 15:26> Assessment and Plan (1) End stage chronic kidney disease: Status: Acute <Giuliana Mars NP - Last Filed: 06/26/21 15:26> (2) HTN (hypertension): Status: Acute <Giuliana Mars NP - Last Filed: 06/26/21 15:26> 66 year old women admitted with ESRD requiring dialysis. Apparently she was going to her dialysis center yesterday to get an extra treatment of dialysis and they were unable to accommodate this. She was post to get dialysis today but she was unable to drive there so she came to the ER to get dialysis today. ESRD Dialysis today Nephrology consultation Continue furosemide Diabetes Sliding scale, Lantus ADA diet CAD asa, statin and BB Hypertension continue amlodipine DVT prophylaxis with Heparin Attending Dr. King Full code <Giuliana Mars NP - Last Filed: 06/26/21 15:26> Quality Stroke Does the patient have a stroke diagnosis?: No <Giuliana Mars NP - Last Filed: 06/26/21 15:26> VTE Prior VTE?: No <Giuliana Mars NP - Last Filed: 06/26/21 15:26> VTE Risk Level:: Medical - moderate - high <Giuliana Mars NP - Last Filed: 06/26/21 15:26> VTE Device Contraindication: Treatment Not Indicated <Giuliana Mars NP - Last Filed: 06/26/21 15:26> VTE Drug Contraindication: N/A - Med Ordered <Giuliana Mars NP - Last Filed: 06/26/21 15:26>
[2021-06-26] MEDS: Heparin Sodium,Porcine 5,000 UNIT/ML VIAL 5000 UNIT SUBCUT (14:41)
--- NOTE | 2021-06-26 15:22 | PHA.MEDREC ---
Pharmacy Consult ? Medication Reconciliation Pharmacy has completed the medication reconciliation. No remarkable issues. Alma Thompson RP
--- NOTE | 2021-06-26 15:52 | PM.EVENT ---
Event Note Date of Service: 06/26/21 Event Note: Patient came to the hospital because shortness of breath she said she had missed hemodialysis and was supposed to get extra fluid removed but probably could not get the ride and was having more shortness of breath today's so decided to come to the hospital. In addition patient had recent RSV infection is last month and she said she has runny nose and sore throat- otherwise denies any cough or phlegm or any fever or chills or nausea or vomiting or diarrhea physical exam: Appearance: Alert.? Oriented X3.? not in distress.? Eyes: Pupils equal, round and reactive to light.? Sclera nonicteric.? ENT: Pharynx normal.? Moist mucous membranes. cvs: rrr, [id number] , no murmur res: grossly fair air entry, no rales or wheezing abd: no rebound or guarding ,nt, bs present. ext pulses present , no cyanosis ,Gait well balanced well coordinated. neuro: axo3 , nonfocal. This patient is seen and examined with APC. Lab imaging, EKG -nsr Personally reviewed and interpreted . cxr:? sequlae of of previous improved airspace edema chronic anemia BUN and creatinine elevation related to missed hemodialysis reason area probably related to recovering from RSV Physical exam and assessment and plan coordinated in APCs note, Agree with the plan in addition: acute dyspnea probably related to ESRD, missed hemodialysis. also recovering from RSV infection sore throat: added strep nucleic acid click acid, throat culture. repeat cxr in am after HD, added procalcitonin levels.
[2021-06-26 16:46] LABS: Procalcitonin 0.47 ng/mL
--- NOTE | 2021-06-26 20:20 | PC.NURSE ---
Report called to inpt RN. Pt to floor via wc in stable condition w/ all belongings
[2021-06-26 20:46] LABS: Glucose, Whole Blood 87 mg/dL (60-115)
[2021-06-26] MEDS: Melatonin 3 MG TABLET 6 MG PO (20:46)
[2021-06-26] MEDS: Docusate Sodium 100 MG CAPSULE PO (20:46)
[2021-06-26] MEDS: Metoprolol Tartrate 50 MG TABLET PO (20:46)
[2021-06-26] MEDS: Atorvastatin Calcium 80 MG TABLET PO (20:46)
[2021-06-26] MEDS: Acetaminophen 325 MG TABLET 650 MG PO (20:46)
[2021-06-26] MEDS: 0.9 % Sodium Chloride Flush 3 ML SYRINGE IVFLUSH (20:47)
--- NOTE | 2021-06-26 21:05 | PM.CNNEP ---
History of Present Illness Reason for Consult Consult date: 06/26/21 Reason for consult: SOB pul edema Chief Complaint Chief complaint: ESRD needs dialysis Review of Systems Review of Systems Denies any recent fever chills or decrease in appetite respiratory denies any shortness of breath coverage production cardiovascular Denies chest pain gastrointestinal denies any dysphagia abdominal pain nausea vomiting or diarrhea genitourinary denies any dysuria frequency or hematuria musculoskeletal denies any joint pain or swelling neuropsych denies any weakness or seizures all other systems reviewed are negative [facility] Past Medical History Medical History (Updated 06/26/21 @ 14:22 by Giuliana Mars NP) CAD (coronary artery disease) Diabetes End stage chronic kidney disease HTN (hypertension) Hyperlipidemia Family History Family History Father No problems noted. Mother No problems noted. Surgical History Surgical History Hx of cardiac catheterization Social History Social History Household Members: None Housing: House Do you presently have visiting nurse or other home services: No Alcohol intake: never Patient Tobacco Use Status: Never used Tobacco Years Smoked: 4+ Advance Directives Date on File: 01/02/21 service: No Current occupational status: employed Meds Allergies Allergy/AdvReac Type Severity Reaction Status Date / Time No Known Allergies Allergy Verified 01/23/21 14:15 [No Known Allergies*] Active Medications: Current Medications Acetaminophen (Acetaminophen 325 Mg Tablet) 650 mg PO Q6H PRN PRN Reason: Pain, Mild (Pain Scale 1-3) Last Admin: 06/26/21 20:46 Dose: 650 mg Documented by: Aspirin (Aspirin Enteric Coated 81 Mg Tablet.) 81 mg PO DAILY AMBAR Atorvastatin Calcium (Atorvastatin Calcium 80 Mg Tablet) 80 mg PO BEDTIME AMBAR Last Admin: 06/26/21 20:46 Dose: 80 mg Documented by: Docusate Sodium (Docusate Sodium 100 Mg Capsule) 100 mg PO BEDTIME AMBAR Last Admin: 06/26/21 20:46 Dose: 100 mg Documented by: Ergocalciferol (Ergocalciferol (Vitamin D2) 1,250 Mcg Capsule) 1,250 mcg PO SARKAR AMBAR Furosemide (Furosemide 40 Mg Tablet) 120 mg PO DAILY AMBAR; Protocol Gabapentin (Gabapentin 300 Mg Capsule) 300 mg PO DAILY [facility] Heparin Sodium (Porcine) (Heparin Sodium,Porcine 5,000 Unit/Ml Vial) 5,000 unit SUBCUT Q12H [facility] Last Admin: 06/26/21 14:41 Dose: 5,000 unit Documented by: Insulin Glargine (Insulin Glargine,Hum.Rec.Anlog 100 Unit/Ml 10 Ml Vial) 19 unit SUBCUT BEDTIME [facility] Last Admin: 06/26/21 20:58 Dose: Not Given Documented by: Isosorbide Mononitrate (Isosorbide Mononitrate 60 Mg Tab.Er.24h) 60 mg PO DAILY [facility]; Protocol Melatonin (Melatonin 3 Mg Tablet) 6 mg PO BEDTIME PRN PRN Reason: Insomnia Last Admin: 06/26/21 20:46 Dose: 6 mg Documented by: Metoprolol Tartrate (Metoprolol Tartrate 50 Mg Tablet) 50 mg PO BID [facility]; Protocol Last Admin: 06/26/21 20:46 Dose: 50 mg Documented by: Multivitamins/Vitamin C (Multivitamin Tablet) 1 tab PO DAILY [facility] Ondansetron HCl (Ondansetron Hcl 4 Mg/2 Ml Vial) 4 mg IVPUSH Q8H PRN PRN Reason: Nausea and Vomiting Pharmacy Consult (Consult Rx Perform Med Rec) 1 each MISCELLANE ONCE PRN PRN Reason: Consult order Sodium Chloride (0.9 % Sodium Chloride Flush 3 Ml Syringe) 3 ml IVFLUSH QSHIFT [facility] Last Admin: 06/26/21 20:47 Dose: 3 ml Documented by: Home Medications Medication Instructions Recorded Confirmed Last Taken Type docusate sodium 100 mg capsule 1 cap PO BEDTIME 12/30/20 06/26/21 06/25/21 History ergocalciferol (vitamin D2) 1,250 1 cap PO SARKAR 12/30/20 06/26/21 06/25/21 History mcg (50,000 unit) capsule insulin glargine 100 unit/mL (3 19 unit SUBCUT BEDTIME 12/30/20 06/26/21 06/25/21 History mL) subcutaneous pen (Lantus Solostar U-100 Insulin) metoprolol tartrate 100 mg tablet 50 mg PO BID 12/30/20 06/26/21 06/25/21 History furosemide 40 mg tablet 120 mg PO DAILY 01/23/21 06/26/21 06/25/21 History aspirin 81 mg tablet,delayed 81 mg PO DAILY 05/12/21 06/26/21 06/25/21 History release atorvastatin 80 mg tablet 1 tab PO BEDTIME 05/12/21 06/26/21 06/25/21 History gabapentin 100 mg capsule 3 cap PO DAILY 05/12/21 06/26/21 06/25/21 History isosorbide mononitrate 60 mg 1 tab PO DAILY 06/26/21 06/26/21 06/25/21 History tablet,extended release 24 hr omega-3 fatty acids 1,000 mg PO DAILY 06/26/21 06/26/21 06/25/21 History vitamin B complex-vitamin C-folic 1 tab PO DAILY 06/26/21 06/26/21 06/25/21 History acid 0.8 mg tablet (Nephro-Gemini) Physical Exam Vital Signs: Last Vital Signs Temp 98.1 F 06/26/21 08:15 Pulse 88 06/26/21 11:37 Resp 19 06/26/21 11:37 BP 165/83 H 06/26/21 11:37 Pulse Ox 100 06/26/21 11:37 Oxygen Flow Rate 3 06/26/21 10:08 BMI result Body Mass Index 29.0 Const Other: Appearance: Alert. Oriented X3. Seems short of breath, anxious, crying Eyes: Pupils equal, round and reactive to light. ENT: Pharynx normal. Neck: Normal inspection. Neck supple. No lymph nodes noted. No crepitus CVS: Normal heart rate and rhythm. Pulses normal. Normal S1 and S2 Respiratory: Oxygen saturation drops to 83% when oxygen is turned off. Decreased breath sounds bilaterally, crackles in both bases, no wheezing Abdomen: Soft and nontender. No rigidity. No distention. good BS x4 Skin: Skin warm and dry. Normal skin color. Normal skin turgor. Extremities: +2 pitting edema. No Lacerations. No Rash Neuro: Oriented X 3. No motor deficit. No sensory deficit. Moving all extermities. No slurred speech. Results Lab Results Result Diagrams: 06/26/21 09:06 06/26/21 09:06 Lab results: Chemistry 06/26/21 09:06 Sodium 141 Potassium 4.2 Carbon Dioxide 25 BUN 42 H Creatinine 7.66 H* Calcium 8.6 Hematology 06/26/21 09:06 WBC 10.2 Hgb 8.1 L Plt Count 166 Assessment and Plan (1) End stage chronic kidney disease: Status: Acute missed dialysis today and is SOB urgent dialysis started fluid removed with relief of symptoms will UF again in am (2) HTN (hypertension): Status: Acute 66 year old women admitted with ESRD requiring dialysis. Apparently she was going to her dialysis center yesterday to get an extra treatment of dialysis and they were unable to accommodate this. She was post to get dialysis today but she was unable to drive there so she came to the ER to get dialysis today. ESRD Dialysis today Nephrology consultation Continue furosemide Diabetes Sliding scale, Lantus ADA diet CAD asa, statin and BB Hypertension continue amlodipine DVT prophylaxis with Heparin Attending Dr. King Full code Procedures Date of Service Date of Service: 06/26/21
[2021-06-26 23:57] VITALS: BP 135/63; PULSE 80; RESP 18; TEMP 37; O2SAT 93
[2021-06-27 04:00] VITALS: BP 157/64; PULSE 79; RESP 18; TEMP 37.1; O2SAT 90
[2021-06-27] MEDS: Heparin Sodium,Porcine 5,000 UNIT/ML VIAL 5000 UNIT SUBCUT (04:15)
[2021-06-27 04:42] LABS: IDNOW Serial# 9DD0AD1C; Strep A Nucleic Acid Negative (Negative)
[2021-06-27 05:46] LABS: MANUAL DIFF FLAG NO
[2021-06-27 05:49] LABS: Basophils Percent Auto 0.4 % (0-2); Eosinophils Absolute Auto 0.9 X10*3/uL (0.0-0.4); Eosinophils Percent Auto 10.7 % (0-4); Hematocrit 24.8 % (37.0-47.0); Imm Gran Abs Auto 0.02 X10*3/uL (0.00-0.03); Imm Gran Pct Auto 0.2 % (0.0-0.4); Lymphocytes Absolute Auto 1.2 X10*3/uL (1.2-4.9); Lymphocytes Percent Auto 14.7 % (20-40); Mean Corpuscular HGB Conc 32.3 g/dl (31.0-35.0); Mean Corpuscular Hemoglobin 33.5 pg (27.0-33.0); Mean Corpuscular Volume 103.8 fL (80.0-98.0); Mean Platelet Volume 9.2 fL (9.4-12.3); Monocytes Absolute Auto 1.1 X10*3/uL (0.1-1.2); Monocytes Percent Auto 12.5 % (2-11); Neutrophils Absolute Auto 5.2 x10*3/uL (2.0-8.3); Neutrophils Percent Auto 61.5 % (45-73); Platelet Count 136 X10*3/uL (160-400); Red Blood Count 2.39 X10*6/uL (4.20-5.50); Red Cell Distribution Width 13.9 % (11.0-16.0); White Blood Count 8.4 X10*3/uL (4.8-10.8)
[2021-06-27 06:20] LABS: B Type Natriuretic Peptide 453 pg/mL (<100)
[2021-06-27 06:32] LABS: Anion Gap 13 (12-20); Blood Urea Nitrogen 21 mg/dL (9-16); Calcium 8.5 mg/dL (8.4-10.2); Carbon Dioxide 25 mmol/L (22-29); Chloride 103 mmol/L (96-108); Creatinine Clr Calc Pharmacy 8.9; Estimated Glomerular Filt Rate 9; Glucose Random 76 mg/dL (60-115); Potassium 4.1 mmol/L (3.3-5.1); Sodium 137 mmol/L (135-145)
[2021-06-27 07:19] VITALS: BP 171/72; PULSE 86; RESP 18; TEMP 36.5; O2SAT 93
[2021-06-27 07:24] LABS: Glucose, Whole Blood 74 mg/dL (60-115)
[2021-06-27] MEDS: Acetaminophen 325 MG TABLET 650 MG PO (08:19)
--- NOTE | 2021-06-27 09:22 | P.DS_ITS ---
DS: Providers Provider Date of Service: 06/27/21 Date of admission: 06/26/21 14:19 Primary care physician: Unknown Physician Consults: 06/26/21 14:19 Consult to Nephrology Routine Consulting Provider: Andrea Macedo Reason for consultation: ESRD needs dialysis Has provider been notified: No Attending physician on discharge: Kalpesh Valdes Discharging clinician: Giuliana Mars DS: Diagnosis Discharge Diagnosis (1) End stage chronic kidney disease: Status: Acute (2) HTN (hypertension): Status: Acute DS: Summary Hospital Course Hospital Course: 66 year old women admitted with ESRD requiring dialysis.? Apparently she was going to her dialysis center yesterday to get an extra treatment of dialysis and they were unable to accommodate this.? She was post to get dialysis today but she was unable to drive there so she came to the ER to get dialysis today. ESRD Dialysis 06/26 and 06/27 Nephrology consulted Continue furosemide No other changes continue dialysis as per regular schedule Dyspnea. Resolved secondary to fluid accumulation from dialysis Diabetes Sliding scale, Lantus ADA diet CAD asa, statin and BB Hypertension continue amlodipine Time Spent with Patient Time attestation: Total time spent providing and/or coordinating discharge services: Discharge coordination time: Greater than 30 minutes Quality: Stroke Does the patient have a stroke diagnosis?: No Physical Exam Vital Signs: Vital Signs: Last Vital Signs Temp 97.7 F 06/27/21 07:19 Pulse 86 06/27/21 07:19 Resp 18 06/27/21 07:19 BP 171/72 H 06/27/21 07:19 Pulse Ox 93 06/27/21 07:19 Oxygen Flow Rate 3 06/26/21 10:08 BMI result Body Mass Index 29.0 Appearing in no acute distress head is normocephalic atraumatic eyes pupils are PERRLA sclera is anicteric mouth throat mucous membranes are intact and moist neck is supple no lymphadenopathy, no JVD noted lung sounds are clear to auscultation heart regular rate rhythm, clear S1, S2 positive bowel sounds, abdomen is soft, nontender neuro patient is alert x3, no focal deficits DS: Data Data Completed and Pending Completed studies during hospitalization [Text1]: Procedures Performance of Urinary Filtration, Intermittent, Less than 6 Hours Per Day (05/12/21) Labs on day of discharge: Laboratory Results - last 24 hr 06/26/21 06/26/2106/26/21 09:06 09:06 09:06 WBC RBC Hgb Hct MCV MCH MCHC RDW Plt Count MPV Immature Gran % (Auto) Neut % (Auto) Lymph % (Auto) [place] % (Auto) Eos % (Auto) Baso % (Auto) Lymph # (Auto) [place] # (Auto) Eos # (Auto) Baso # (Auto) Abs Immat Gran (auto) Absolute Neuts (auto) Absolute Nucleated RBC Nucleated RBC % (auto) Sodium 141 Potassium 4.2 Chloride 103 Carbon Dioxide 25 Anion Gap 17 BUN 42 H Creatinine 7.66 H* Estim Creat Clear Calc 5.6 Estimated GFR 5 POC Glucose Random Glucose 102 Lactic Acid 0.6 Calcium 8.6 Total Bilirubin 0.5 Direct Bilirubin 0.3 AST 34 H ALT 11 Alkaline Phosphatase 85 B-Natriuretic Peptide 747 H Total Protein 7.1 Albumin 3.6 Procalcitonin Influenza Type A (PCR) Influenza Type B (PCR) RSV RNA Qual (PCR) SARS-CoV-2 RNA (RT-PCR) S. pyogenes GrpA CAROLYN 06/26/21 06/26/21 06/26/21 09:06 09:08 20:42 WBC RBC Hgb Hct MCV MCH MCHC RDW Plt Count MPV Immature Gran % (Auto) Neut % (Auto) Lymph % (Auto) [place] % (Auto) Eos % (Auto) Baso % (Auto) Lymph # (Auto) [place] # (Auto) Eos # (Auto) Baso # (Auto) Abs Immat Gran (auto) Absolute Neuts (auto) Absolute Nucleated RBC Nucleated RBC % (auto) Sodium Potassium Chloride Carbon Dioxide Anion Gap BUN Creatinine Estim Creat Clear Calc Estimated GFR POC Glucose 87 Random Glucose Lactic Acid Calcium Total Bilirubin Direct Bilirubin AST ALT Alkaline Phosphatase B-Natriuretic Peptide Total Protein Albumin Procalcitonin 0.47 Influenza Type A (PCR) NEGATIVE Influenza Type B (PCR) NEGATIVE RSV RNA Qual (PCR) NEGATIVE SARS-CoV-2 RNA (RT-PCR) NEGATIVE S. pyogenes GrpA CAROLYN 06/27/21 06/27/21 06/27/21 04:23 05:32 05:32 WBC 8.4 RBC 2.39 L Hgb 8.0 L Hct 24.8 L MCV 103.8 H MCH 33.5 H MCHC 32.3 RDW 13.9 Plt Count 136 L MPV 9.2 L Immature Gran % (Auto) 0.2 Neut % (Auto) 61.5 Lymph % (Auto) 14.7 L [place] % (Auto) 12.5 H Eos % (Auto) 10.7 H Baso % (Auto) 0.4 Lymph # (Auto) 1.2 [place] # (Auto) 1.1 Eos # (Auto) 0.9 H Baso # (Auto) 0.0 Abs Immat Gran (auto) 0.02 Absolute Neuts (auto) 5.2 Absolute Nucleated RBC 0.000 Nucleated RBC % (auto) 0.0 Sodium 137 Potassium 4.1 Chloride 103 Carbon Dioxide 25 Anion Gap 13 BUN 21 H Creatinine 4.85 H* Estim Creat Clear Calc 8.9 Estimated GFR 9 POC Glucose Random Glucose 76 Lactic Acid Calcium 8.5 Total Bilirubin Direct Bilirubin AST ALT Alkaline Phosphatase B-Natriuretic Peptide Total Protein Albumin Procalcitonin Influenza Type A (PCR) Influenza Type B (PCR) RSV RNA Qual (PCR) SARS-CoV-2 RNA (RT-PCR) S. pyogenes GrpA CAROLYN Negative 06/27/21 06/27/21 05:32 07:17 WBC RBC Hgb Hct MCV MCH MCHC RDW Plt Count MPV Immature Gran % (Auto) Neut % (Auto) Lymph % (Auto) [place] % (Auto) Eos % (Auto) Baso % (Auto) Lymph # (Auto) [place] # (Auto) Eos # (Auto) Baso # (Auto) Abs Immat Gran (auto) Absolute Neuts (auto) Absolute Nucleated RBC Nucleated RBC % (auto) Sodium Potassium Chloride Carbon Dioxide Anion Gap BUN Creatinine Estim Creat Clear Calc Estimated GFR POC Glucose 74 Random Glucose Lactic Acid Calcium Total Bilirubin Direct Bilirubin AST ALT Alkaline Phosphatase B-Natriuretic Peptide 453 H Total Protein Albumin Procalcitonin Influenza Type A (PCR) Influenza Type B (PCR) RSV RNA Qual (PCR) SARS-CoV-2 RNA (RT-PCR) S. pyogenes GrpA CAROLYN Discharge Plan Discharge Anticipated Discharge Date/Time: 06/27/21 09:20 Patient Disposition: Home, Self-Care Discharge Diagnosis: Dyspnea ESRD Referrals: Physician,Unknown J [Physician] - 1 Week Discharge Medications: Continued metoprolol tartrate 100 mg tablet 50 mg PO BID RF: 0 docusate sodium 100 mg capsule 1 cap PO BEDTIME RF: 0 ergocalciferol (vitamin D2) 1,250 mcg (50,000 unit) capsule 1 cap PO SARKAR RF: 0 Lantus Solostar U-100 Insulin 100 unit/mL (3 mL) insulin pen 19 unit subcut BEDTIME RF: 0 atorvastatin 80 mg tablet 1 tab PO BEDTIME RF: 0 gabapentin 100 mg capsule 3 cap PO DAILY RF: 0 aspirin 81 mg Tablet,Delayed Release (Dr/Ec) 81 mg PO DAILY RF: 0 isosorbide mononitrate 60 mg tablet extended release 24 hr 1 tab PO DAILY RF: 0 Nephro-Gemini 0.8 mg tablet 1 tab PO DAILY RF: 0 omega-3 fatty acids Capsule 1,000 mg PO DAILY RF: 0 furosemide 40 mg tablet 120 mg PO DAILY RF: 0 Discharge Orders: Discharge Order (Routine); Ordered 06/27/21 Ordered By: Giuliana Mars Diet: advance to usual diet Activity on Discharge: As tolerated Stand Alone Forms: Patient Portal Discharge page Care Plan Goals: No further episodes of dyspnea Health Concerns: Dyspnea ESRD Plan of Treatment: Continue your regularly scheduled dialysis M<W<F Assessment: See discharge summary Discharge Date/Time: 06/27/21 12:00
[2021-06-27] MEDS: Multivitamin TABLET 1 TAB PO (10:34)
[2021-06-27] MEDS: Metoprolol Tartrate 50 MG TABLET PO (10:35)
[2021-06-27] MEDS: Gabapentin 300 MG CAPSULE PO (10:35)
[2021-06-27] MEDS: Aspirin Enteric Coated 81 MG TABLET.DR PO (10:36)
[2021-06-27] MEDS: Isosorbide Mononitrate 60 MG TAB.ER.24H PO (10:36)
[2021-06-27] MEDS: Furosemide 40 MG TABLET 120 MG PO (10:38)
[2021-06-27 11:21] LABS: Glucose, Whole Blood 141 mg/dL (60-115)
--- NOTE | 2021-06-27 16:19 | MHC.CM.PN ---
IMM 06/27/21, EMR REVIEWED, PT ADMITTED W/ESRD AND NEEDING DIALYSIS, [facility] COULD NOT ACCESS PT'S PORT SO PT WAS DISCHARGED SO SHE COULD MAKE IT TO HER OUTPT DIALYSIS CENTER [facility] IN [place], PT WAS UPSET D/T THE SHUTTLE NOT BEING ABLE TO TRANSPORT PT AND CM ASSISTED PT W/CALLING HERSELF AN UBER TO TAKE HER DIRECTLY TO [facility] SHE WAS CONCERNED ABOUT BEING LATE, PT DECLINED TO TAKE COPY OF IMM, DID NOT ANSWER MULTIPLE QUESTIONS INCLUDING WHO HER PCP WAS, COPY OF HCP ON FILE FROM PREVIOUS ADMIT AND IS SAMAN BASHIR [phone]. DC PLAN: HOME SELF CARE AND RESUMP OF [facility] FOR HD, UBER FOR TRANSPORT
== END 2021-06-27 12:00 | disposition home or self-care (01) | DRG 470 ==
LOC: HO.ED 14:05 → HO.EDOVER 14:38 → HO.S3 19:20
PROVIDERS: Internal Medicine; Admitting Provider Nurse Practitioner Acute Care; Emergency Provider Emergency Medicine; PCP Internal Medicine; Visit Provider Nurse Practitioner Acute Care
DX: I12.0 Hypertensive chronic kidney disease with stage 5 chronic kidney disease or end stage renal disease (principal); N18.6 End stage renal disease; E11.22 Type 2 diabetes mellitus with diabetic chronic kidney disease; I25.10 Atherosclerotic heart disease of native coronary artery without angina pectoris; E78.5 Hyperlipidemia, unspecified; Z20.822 Contact with and (suspected) exposure to COVID-19; Z99.2 Dependence on renal dialysis; Z91.15 Patient's noncompliance with renal dialysis; Z79.4 Long term (current) use of insulin; Z79.82 Long term (current) use of aspirin; Z79.899 Other long term (current) drug therapy
CPT/HCPCS: 0241U; 36415; 71045; 80048; 80076; 82947; 83605; 83880; 84145; 85025; 87040; 87147; 87205; 87651; 90999; 93005; 99218; 99285; J1940

== ENCOUNTER 2021-08-22 21:30 | Emergency (ER) | payer MEDICARE, OTHER, SELFPAY ==
--- NOTE | 2021-08-22 21:42 | ED_ITS ---
HPI - Headache General Chief Complaint: General Medical Stated Complaint: Palpitations Time Seen by Provider: 08/22/21 21:42 Source: patient Mode of arrival: EMS Limitations: no limitations History of Present Illness HPI Narrative: Patient states that her pressure has been running high before dialysis. Tonight felt headache and palpitations and found her to be 200/102. She took 25mg of metoprolol tonbarber. MD elicited complaint: headache Onset description: gradually Location: occipital and other (neck) Quality & Timing: aching Exacerbating factors: none Relieving factors: nothing Context: occurred at rest Associated symptoms: other (palpitations) Related Data Home Medications Medication Instructions Recorded Confirmed docusate sodium 100 mg capsule 1 cap PO BEDTIME 12/30/20 06/26/21 ergocalciferol (vitamin D2) 1,250 1 cap PO SARKAR 12/30/20 06/26/21 mcg (50,000 unit) capsule insulin glargine 100 unit/mL (3 19 unit SUBCUT BEDTIME 12/30/20 06/26/21 mL) subcutaneous pen (Lantus Solostar U-100 Insulin) metoprolol tartrate 100 mg tablet 50 mg PO BID 12/30/20 06/26/21 furosemide 40 mg tablet 120 mg PO DAILY 01/23/21 06/26/21 aspirin 81 mg tablet,delayed 81 mg PO DAILY 05/12/21 06/26/21 release atorvastatin 80 mg tablet 1 tab PO BEDTIME 05/12/21 06/26/21 gabapentin 100 mg capsule 3 cap PO DAILY 05/12/21 06/26/21 isosorbide mononitrate 60 mg 1 tab PO DAILY 06/26/21 06/26/21 tablet,extended release 24 hr omega-3 fatty acids 1,000 mg PO DAILY 06/26/21 06/26/21 vitamin B complex-vitamin C-folic 1 tab PO DAILY 06/26/21 06/26/21 acid 0.8 mg tablet (Nephro-Gemini) Allergies Allergy/AdvReac Type Severity Reaction Status Date / Time No Known Allergies Allergy Verified 01/23/21 14:15 [No Known Allergies*] Review of Systems Constitutional: Constitutional: Reports no additional constitutional complaints Eyes: Eyes: Reports no additional eye complaints ENT: Denies dizziness Cardiovascular: Cardiovascular: Reports no additional cardiovascular complaints Respiratory: Respiratory: Reports as per HPI Gastrointestinal: Gastrointestinal: Reports no additional gastrointestinal complaints Genitourinary: Genitourinary: Reports no additional female genitourinary compl aints Musculoskeletal: Musculoskeletal: Reports no additional musculoskeletal complaints Integumentary/Breasts: Skin/Breast: Denies rash Neurologic: Reports system reviewed and no additional complaints, except as documented, Denies dizziness and Denies Sensory deficit (Neuro) Psychiatric: Psychiatric: Denies anxiety [facility] Past Medical History Medical History CAD (coronary artery disease) Diabetes End stage chronic kidney disease HTN (hypertension) HTN (hypertension) Hyperlipidemia Surgical History Hx of cardiac catheterization Family History Family History Father No problems noted. Mother No problems noted. Social History Social History Household Members: None Housing: House Do you presently have visiting nurse or other home services: No Alcohol intake: never Patient Tobacco Use Status: Never used Tobacco Years Smoked: 4+ Advance Directives Date on File: 01/02/21 service: No Current occupational status: employed Physical Exam Vital Signs: Vital Signs: Last Vital Signs Temp 98.6 F 08/22/21 22:00 Pulse 83 08/23/21 00:26 Resp 18 08/23/21 00:26 BP 192/88 H 08/23/21 00:26 Pulse Ox 94 08/23/21 00:26 BMI result Body Mass Index 31.9 Const: General: healthy appearing Nutritional Appearance: average body habitus Orientation/consciousness: oriented to person and patient oriented x3 Limitations: no limitations HENMT: Head: Yes normal to inspection Ears: external ears normal General nose exam: Normal external nose present Mouth: Normal oral and palatal mucosa present and oropharynx normal Throat: Yes posterior oropharynx normal Eyes: General: appearance normal, both eyes and all related structures Neck: Other: supple Neck: Yes normal visual inspection Chest: Chest palpation & inspection: normal inspection of the chest Resp: Auscultation: clear to auscultation bilaterally Cardio: Jugular venous distension: no JVD Rate: regular rate Rhythm: regular rhythm Heart sounds: S1 normal heart sound present and S2 normal heart sound present GI: Inspection: Yes normal to inspection Palpation (GI): Soft to palpation, nontender and No hepatosplenomegaly present Auscultation: normal bowel sounds : General: Yes no CVA tenderness Back/Spine/Pelvis: Back: no CVA tenderness Skin: General skin exam: no rashes or lesions noted Neuro: General: oriented to person and patient oriented x3 Cranial nerves: Yes CN's II-XII intact bilaterally Motor exam (neuro): 5/5 motor strength present throughout Sensory Exam: No Sensory deficit (Neuro) Extrem: Other: no edema, left arm by fistula with a thrill Psych: Appearance: grossly normal Course Reevaluation(s) Reevaluation #1: pressure still running high gave another 10 of labetolol Time: 22:41 Reevaluation #2: Pressure is down, patient to have dialysis in the morning, will dc home Time: 00:23 MDM - Headache Lab Data Result diagrams: 08/22/21 21:53 08/22/21 21:53 Labs: Lab Results 08/22/21 08/22/21 08/22/21 Range/Units 21:53 21:53 21:53 WBC 8.5 (4.8-10.8) X10*3/uL RBC 3.21 L D (4.20-5.50) X10*6/uL Hgb 10.4 L D (12.0-16.0) g/dl Hct 31.9 L D (37.0-47.0) % MCV 99.4 H (80.0-98.0) fL MCH 32.4 (27.0-33.0) pg MCHC 32.6 (31.0-35.0) g/dl RDW 13.9 (11.0-16.0) % Plt Count 164 (160-400) X10*3/uL MPV 9.3 L (9.4-12.3) fL Immature Gran % (Auto) 0.6 H (0.0-0.4) % Neut % (Auto) 63.1 (45-73) % Lymph % (Auto) 19.2 L (20-40) % [facility] % (Auto) 9.1 (2-11) % Eos % (Auto) 7.8 H (0-4) % Baso % (Auto) 0.2 (0-2) % Lymph # (Auto) 1.6 (1.2-4.9) X10*3/uL [facility] # (Auto) 0.8 (0.1-1.2) X10*3/uL Eos # (Auto) 0.7 H (0.0-0.4) X10*3/uL Baso # (Auto) 0.0 (0.0-0.2) X10*3/uL Abs Immat Gran (auto) 0.05 H (0.00-0.03) X10*3/uL Absolute Neuts (auto) 5.4 (2.0-8.3) x10*3/uL Absolute Nucleated RBC 0.000 (0.0-0.012) X10*3/uL Nucleated RBC % (auto) 0.0 (0.0-0.2) /100WBC Sodium 141 (135-145) mmol/L Potassium 3.8 (3.3-5.1) mmol/L Chloride 95 L (96-108) mmol/L Carbon Dioxide 31 H (22-29) mmol/L Anion Gap 19 (12-20) BUN 39 H D (9-16) mg/dL Creatinine 7.23 H* (0.5-1.4) mg/dL Estim Creat Clear Calc 6.3 Estimated GFR 6 Random Glucose 170 H (60-115) mg/dL Calcium 9.2 D (8.4-10.2) mg/dL Troponin I High Sens 26.3 H (<3.5-17.0) ng/L ECG Data Attestation: I personally reviewed and interpreted this ECG as follows: Interpretation: sinus 100, lateral st depression, mild Discharge Plan Discharge Clinical Impression: Accelerated hypertension, Renal failure Patient Disposition: Home, Self-Care Instructions: Hypertension (ED) Additional Instructions: must discuss with renal doctor your medication for hypertension Prescriptions: No Action metoprolol tartrate 100 mg tablet 50 mg PO BID 0RF docusate sodium 100 mg capsule 1 cap PO BEDTIME 0RF ergocalciferol (vitamin D2) 1,250 mcg (50,000 unit) capsule 1 cap PO SARKAR 0RF Lantus Solostar U-100 Insulin 100 unit/mL (3 mL) insulin pen 19 unit subcut BEDTIME 0RF atorvastatin 80 mg tablet 1 tab PO BEDTIME 0RF gabapentin 100 mg capsule 3 cap PO DAILY 0RF aspirin 81 mg Tablet,Delayed Release (Dr/Ec) 81 mg PO DAILY 0RF isosorbide mononitrate 60 mg tablet extended release 24 hr 1 tab PO DAILY 0RF Nephro-Gemini 0.8 mg tablet 1 tab PO DAILY 0RF omega-3 fatty acids Capsule 1,000 mg PO DAILY 0RF furosemide 40 mg tablet 120 mg PO DAILY 0RF Rx Instructions: 3 TABS AT ONCE Referrals: Physician,Unknown J [Primary Care Provider] - 1 day Interventions: ED Discharge Assessment Last Done: 08/23/21 00:41 Discharge Date/Time: 08/23/21 00:42
--- NOTE | 2021-08-22 21:44 | ECG_ITS ---
Test Reason : chest pain/htn Blood Pressure : / mmHG Vent. Rate : 099 BPM Atrial Rate : 099 BPM P-R Int : 162 ms QRS Dur : 078 ms QT Int : 384 ms P-R-T Axes : 054 016 033 degrees QTc Int : 492 ms Normal sinus rhythm Prolonged QT Abnormal ECG When compared with ECG of 26-JUN-2021 09:38, No significant change was found Referred By: Darvin Swan Electronically Signed By:ULI ODOM
[2021-08-22 21:45] VITALS: BP 210/100; BP 233/202; PULSE 102; PULSE 99; RESP 21; TEMP 37; O2SAT 94; O2SAT 97; BMI 31.9
[2021-08-22 21:57] LABS: MANUAL DIFF FLAG NO
[2021-08-22 21:58] LABS: Basophils Percent Auto 0.2 % (0-2); Eosinophils Absolute Auto 0.7 X10*3/uL (0.0-0.4); Eosinophils Percent Auto 7.8 % (0-4); Hematocrit 31.9 % (37.0-47.0); Hemoglobin 10.4 g/dl (12.0-16.0); Imm Gran Abs Auto 0.05 X10*3/uL (0.00-0.03); Imm Gran Pct Auto 0.6 % (0.0-0.4); Lymphocytes Absolute Auto 1.6 X10*3/uL (1.2-4.9); Lymphocytes Percent Auto 19.2 % (20-40); Mean Corpuscular HGB Conc 32.6 g/dl (31.0-35.0); Mean Corpuscular Hemoglobin 32.4 pg (27.0-33.0); Mean Corpuscular Volume 99.4 fL (80.0-98.0); Mean Platelet Volume 9.3 fL (9.4-12.3); Monocytes Absolute Auto 0.8 X10*3/uL (0.1-1.2); Monocytes Percent Auto 9.1 % (2-11); Neutrophils Absolute Auto 5.4 x10*3/uL (2.0-8.3); Neutrophils Percent Auto 63.1 % (45-73); Platelet Count 164 X10*3/uL (160-400); Red Blood Count 3.21 X10*6/uL (4.20-5.50); Red Cell Distribution Width 13.9 % (11.0-16.0); White Blood Count 8.5 X10*3/uL (4.8-10.8)
[2021-08-22] MEDS: Labetalol HCL 100 MG/20 ML VIAL 10 MG IVPUSH ×2 (21:58→23:16)
[2021-08-22 22:00] VITALS: BP 233/202; PULSE 99; RESP 21; TEMP 37; O2SAT 94
[2021-08-22 22:25] LABS: Troponin-I High Sensitivity 26.3 ng/L (<3.5-17.0)
[2021-08-22 22:29] LABS: Anion Gap 19 (12-20); Blood Urea Nitrogen 39 mg/dL (9-16); Calcium 9.2 mg/dL (8.4-10.2); Carbon Dioxide 31 mmol/L (22-29); Chloride 95 mmol/L (96-108); Creatinine Clr Calc Pharmacy 6.3; Estimated Glomerular Filt Rate 6; Glucose Random 170 mg/dL (60-115); Potassium 3.8 mmol/L (3.3-5.1); Sodium 141 mmol/L (135-145)
[2021-08-22 22:49] VITALS: BP 212/100; PULSE 86; RESP 14; O2SAT 94
[2021-08-22 23:49] VITALS: BP 188/77; PULSE 85; RESP 10; O2SAT 92
[2021-08-23 00:26] VITALS: BP 192/88; PULSE 83; RESP 18; O2SAT 94
== END 2021-08-23 00:42 | disposition home or self-care (01) ==
PROVIDERS: Emergency Provider Emergency Medicine
DX: E11.22 Type 2 diabetes mellitus with diabetic chronic kidney disease (principal); I12.0 Hypertensive chronic kidney disease with stage 5 chronic kidney disease or end stage renal disease; N18.6 End stage renal disease; N17.9 Acute kidney failure, unspecified; R00.2 Palpitations; R51.9 Headache, unspecified; E78.5 Hyperlipidemia, unspecified; Z99.2 Dependence on renal dialysis; Z79.4 Long term (current) use of insulin; Z79.82 Long term (current) use of aspirin; Z79.02 Long term (current) use of antithrombotics/antiplatelets
CPT/HCPCS: 36415; 80048; 84484; 85025; 93005; 96374; 96376; 99284

== ENCOUNTER → 2021-09-12 08:28 | Outpatient (REF) | payer MEDICARE, OTHER, SELFPAY ==
--- NOTE | ~2021-09-12 | NM_ITS ---
Myocardial perfusion study Indication: Preoperative cardiovascular risk stratification Technique: The patient was brought in for a Lexiscan perfusion study on 09/12/2021. Patient performed low-level exercise and was injected 0.4 mg of Lexiscan intravenously. Within a minute of injection, 25 mCi of sestamibi was given intravenously. Images were obtained using the SPECT gamma camera interlaced with the gating device. Images were obtained in supine position. Resting perfusion study was performed on 09/14/2021. Patient was administered 25 mCi of sestamibi intravenously at rest. Images were then obtained in supine position. Images obtained with and without CT attenuation. Total DLP 86 mGy-cm Images were processed with the software and compared side to side in short axis, horizontal long axis and vertical long axis views. Findings: The stress perfusion study showed non attenuated images show mildly reduced uptake in the basal lateral, basal anterior and basal inferior wall of the LV myocardium. Is also noted thinning of the distal lateral wall of the LV cardiac. Attenuated corrected images show normal uptake of radiotracer in all segments myocardium. The gated study shows normal LV systolic function with calculated LVEF of 60%. LV cavity is normal in size. The gated study shows normal systolic wall thickening and contraction of segments. Resting study shows no change in perfusion pattern compared to stress perfusion study. Gating at rest reveals normal systolic wall motion with visually estimated ejection fraction at greater than 60%. The findings are consistent with no clear reversible defect suggestive of ischemia. Likely normal myocardial perfusion. NM/NM chris perf SPECT rest & str Impression: 1. Myocardial perfusion imaging study shows likely normal myocardial perfusion 2. Gated LVEF is 60% 3. Transient ischemic dilatation not present EKG is nondiagnostic for ischemia
--- NOTE | 2021-09-12 08:31 | CA_ITS ---
Acquisition Time: 2021-09-12 08:53:18 Total Exercise Time: 00:02:00 Test Indications: PREOP END STAGE RENAL DISEASE Medications: METOPROLOL ATORVASTATIN INSULIN ASA GABAPENTIN OSOSRBIDE AMLODIPINE Protocol: LEXISCAN Max HR: 084 BPM 54% of Pred: 154 BPM Max BP: 138/066 mmHG Max Work Load: 1.0 METS Pharmacological stress test with Lexiscan injection, while sitting and kicking her legs, without anginal symptoms, without arrythmia, with normotensive response to injection, with nondiagnostic EKG for ischemia. In recovery she was given Aminophylline 75mg IVP to reverse Lexiscan. Nuclear images pending. Test reviewed with Dr Dubose. Referred By: Mitch Arellano Overread By: SIS CAMPOS
== END ==
LOC: HO.CARD 08:28
PROVIDERS: Visit Provider Internal Medicine Cardiovascular Disease
DX: Z01.811 Encounter for preprocedural respiratory examination (principal); I25.10 Atherosclerotic heart disease of native coronary artery without angina pectoris; N18.6 End stage renal disease
CPT/HCPCS: 78452; 93017; A9500; J0280; J2785

== ENCOUNTER → 2021-10-26 13:24 | Outpatient (BNVA) | payer OTHER, MEDICARE, SELFPAY | PROVIDERS: Visit Provider Nurse Practitioner Family | DX: I12.0 Hypertensive chronic kidney disease with stage 5 chronic kidney disease or end stage renal disease (principal); N18.6 End stage renal disease; I25.10 Atherosclerotic heart disease of native coronary artery without angina pectoris; E78.5 Hyperlipidemia, unspecified; Z98.890 Other specified postprocedural states | CPT/HCPCS: 99212 ==

== ENCOUNTER 2022-08-08 11:02 | Inpatient (IN) | payer OTHER, MEDICARE, SELFPAY ==
--- NOTE | ~2022-08-08 | CT_ITS ---
Indication: Fall, trauma EXAMINATION: CT brain, CT facial bones, CT cervical spine. Axial imaging with coronal and sagittal reformatted images. This CT examination was performed using dose optimization techniques as appropriate, variously including the following: *Automated exposure control *Adjustment of mA and/or kV according to patient size (this includes techniques or standardized protocols for targeted exams where dose is matched to indication/reason for exam; i.e. extremities or head) *Use of iterative reconstruction technique. Radiation dose 670, 400, 280 CT brain; There is no midline shift. There is no mass effect. There is no hemorrhage. The basal cisterns appear patent. The posterior fossa is grossly within normal limits. There is no extra-axial collection. Some evidence of atrophy. Circumscribed soft tissue lesion associated with the left cheek. No fracture is seen on the bone windows. Sinus disease is noted. Cervical spine; No evidence for fracture or dislocation. Degenerative changes are noted. There is some adenopathy in neck. Several prominent nodes to include 1.1 cm node adjacent to the sternocleidomastoid on the left CT facial bones; No fracture. CT/CT facial bones wo IV con IMPRESSION: Negative acute noncontrast CT of the brain. No fracture or dislocation of the cervical spine. No facial bone fracture. Note is made of a soft tissue lesion associated with the left cheek and some prominent neck adenopathy pathologically enlarged. This may be reactive. Underlying malignancy of course cannot be excluded. Correlation recommended clinically. Recommend contrast enhanced CT neck for full evaluation. This may be done on an outpatient basis.
--- NOTE | ~2022-08-08 | CT_ITS ---
Indication: Fall, trauma EXAMINATION: CT brain, CT facial bones, CT cervical spine. Axial imaging with coronal and sagittal reformatted images. This CT examination was performed using dose optimization techniques as appropriate, variously including the following: *Automated exposure control *Adjustment of mA and/or kV according to patient size (this includes techniques or standardized protocols for targeted exams where dose is matched to indication/reason for exam; i.e. extremities or head) *Use of iterative reconstruction technique. Radiation dose 670, 400, 280 CT brain; There is no midline shift. There is no mass effect. There is no hemorrhage. The basal cisterns appear patent. The posterior fossa is grossly within normal limits. There is no extra-axial collection. Some evidence of atrophy. Circumscribed soft tissue lesion associated with the left cheek. No fracture is seen on the bone windows. Sinus disease is noted. Cervical spine; No evidence for fracture or dislocation. Degenerative changes are noted. There is some adenopathy in neck. Several prominent nodes to include 1.1 cm node adjacent to the sternocleidomastoid on the left CT facial bones; No fracture. CT/CT cervical spine wo IV con IMPRESSION: Negative acute noncontrast CT of the brain. No fracture or dislocation of the cervical spine. No facial bone fracture. Note is made of a soft tissue lesion associated with the left cheek and some prominent neck adenopathy pathologically enlarged. This may be reactive. Underlying malignancy of course cannot be excluded. Correlation recommended clinically. Recommend contrast enhanced CT neck for full evaluation. This may be done on an outpatient basis.
--- NOTE | ~2022-08-08 | CT_ITS ---
Indication: Fall, trauma EXAMINATION: CT brain, CT facial bones, CT cervical spine. Axial imaging with coronal and sagittal reformatted images. This CT examination was performed using dose optimization techniques as appropriate, variously including the following: *Automated exposure control *Adjustment of mA and/or kV according to patient size (this includes techniques or standardized protocols for targeted exams where dose is matched to indication/reason for exam; i.e. extremities or head) *Use of iterative reconstruction technique. Radiation dose 670, 400, 280 CT brain; There is no midline shift. There is no mass effect. There is no hemorrhage. The basal cisterns appear patent. The posterior fossa is grossly within normal limits. There is no extra-axial collection. Some evidence of atrophy. Circumscribed soft tissue lesion associated with the left cheek. No fracture is seen on the bone windows. Sinus disease is noted. Cervical spine; No evidence for fracture or dislocation. Degenerative changes are noted. There is some adenopathy in neck. Several prominent nodes to include 1.1 cm node adjacent to the sternocleidomastoid on the left CT facial bones; No fracture. CT/CT head/brain wo IV con IMPRESSION: Negative acute noncontrast CT of the brain. No fracture or dislocation of the cervical spine. No facial bone fracture. Note is made of a soft tissue lesion associated with the left cheek and some prominent neck adenopathy pathologically enlarged. This may be reactive. Underlying malignancy of course cannot be excluded. Correlation recommended clinically. Recommend contrast enhanced CT neck for full evaluation. This may be done on an outpatient basis.
--- NOTE | ~2022-08-08 | XR_ITS ---
EXAMINATION: XR CHEST CLINICAL INFORMATION: Hypoxia. COMPARISON: 06/18/2021 chest radiograph. TECHNIQUE: Frontal view of the chest was obtained. FINDINGS: Mild linear opacities are seen in the right midlung and lower lungs. The heart and mediastinal structures are unremarkable. Vascular stent overlies the left apex without change. XR/XR chest 1V IMPRESSION: Overall interval improvement with decreased markings at the left lung base. Mild residual markings could represent mild central congestion/atelectasis.
[2022-08-08 11:12] VITALS: BP 228/104; PULSE 90; RESP 18; TEMP 36.8; O2SAT 92; BMI 31.5
--- OUTSIDE RECORDS SUMMARY | 2022-08-08 11:24 | XMS_ITS | Continuity of Care Document ---
:1955 Author Organization [facility] Address Unavailable , Care Team Providers Name Role Phone Silvio-Betsy Manley MD Primary Care Physician Encounter [facility] [place] Date(s): 11/05/21 - 12/05/21 [facility] Attending Physician: David Arriaga Admitting Physician: David Arriaga Referring Physician: David Arriaga Allergies, Adverse Reactions, Alerts No Known Allergies Immunizations Given and Recorded Vaccine Date Status Refusal Reason SARS-CoV-2 (COVID-19) mRNA-1273 vaccine 02/24/21 Recorded SARS-CoV-2 (COVID-19) mRNA-1273 vaccine 09/21/20 Recorded SARS-CoV-2 (COVID-19) mRNA-1273 vaccine 08/10/20 Recorded Medications aspirin 81 mg oral tablet 1 tablet = 81 mg, By Mouth, Daily, 0 Refills, Maintenance, 11/12/15 20:22:14 Start Date: 11/12/15 Status: Ordereddocusate sodium 50 mg oral capsule 1 capsule = 50 mg, By Mouth, 2 times a day, PRN for constipation, # 60 capsule, 0 Refills, Maintenance, 03/26/21 15:28:00 EDT, Capsule, Partial fill upon patient request if the prescription is for a schedule II opioid drug. Start Date: 03/26/21 Status: Orderedfurosemide 40 mg oral tablet 120 mg, 3, tablet, By Mouth, Daily, # 30 tablet, Refills 0, Maintenance, 03/26/21 14:23:00 EDT, Partial fill upon patient request if the prescription is for a schedule II opioid drug. Start Date: 03/26/21 Status: Orderedgabapentin 100 mg oral capsule 100 mg, 1, capsule, By Mouth, 3 times a day, # 90 capsule, Refills 0, Tot. Refills 0, Maintenance, 02/14/20 11:37:00 EDT, Route to Pharmacy Electronically, [facility], 148, cm, 02/13/20 20:30:00 EDT, Height, 74.4, kg, 02/05/20 2:32:00 ED... Start Date: 02/14/20 Status: OrderedIsosorbide Mononitrate = 60 mg, By Mouth, Daily in AM, 0 Refills, Maintenance, 03/26/21 14:24:00 EDT, Partial fill upon patient request if the prescription is for a schedule II opioid drug. Start Date: 03/26/21 Status: OrderedLantus 100 u/ml subcutaneous solution = 14 units, Subcutaneous Injection, Daily at bedtime, # 10 mL, 0 Refills, Maintenance, 02/14/20 14:00:00 EDT, Solution Start Date: 02/14/20 Status: OrderedLipitor 80 mg oral tablet 1 tablet = 80 mg, By Mouth, Daily at bedtime, # 30 tablet, 0 Refills, Maintenance, Tablet, Route to Pharmacy Electronically, [id number], [facility] Start Date: 11/16/15 Stop Date: 12/16/15 Status: Orderedmelatonin 3 mg oral tablet 1 tablet = 3 mg, By Mouth, Daily at bedtime, PRN Sleep, # 60 tablet, 0 Refills, Maintenance, 02/14/20 11:34:00 EDT, Tablet, [facility], 148, cm, 02/13/20 20:30:00 EDT, Height, 74.4, kg, 02/05/20 2:32:00 EDT, Dry Weight Start Date: 02/14/20 Status: Orderedmetoprolol 100 mg oral tablet, extended release 100 mg, 1, tablet, By Mouth, Daily in AM, # 30 tablet, Refills 0, Tot. Refills 0, Maintenance, 02/14/20 11:35:00 EDT, Route to Pharmacy Electronically, [facility], 148, cm, 02/13/20 20:30:00 EDT, Height, 74.4, kg, 02/05/20 2:32:00 EDT, D... Start Date: 02/14/20 Status: OrderedLian Orozcotle 0 Refills, Maintenance, 03/26/21 15:26:00 EDT, Partial fill upon patient request if the prescriptionis for a schedule II opioid drug. Start Date: 03/26/21 Status: OrderedNephro-Gemini 1 tablet, By Mouth, Daily, 0 Refills, Maintenance, 03/26/21 14:25:00 EDT, Partial fill upon patient request if the prescription is for a schedule II opioid drug. Start Date: 03/26/21 Status: OrderedNIFEdipine 60 mg oral tablet, extended release 60 mg, 1, tablet, By Mouth, Daily, # 30 tablet, Refills 0, Tot. Refills 0, Maintenance, 02/14/20 11:34:00 EDT, Route to Pharmacy Electronically, [facility], 148, cm, 02/13/20 20:30:00 EDT, Height, 74.4, kg, 02/05/20 2:32:00 EDT, Dry Weight Start Date: 02/14/20 Status: OrderedOmega-3 oral capsule 0 Refills, Maintenance, 03/26/21 15:26:00 EDT, Partial fill upon patient request if the prescriptionis for a schedule II opioid drug. Start Date: 03/26/21 Status: OrderedTums 500 mg oral tablet, chewable 500 mg, 1, tablet, Chew, 3 times a day, PRN, # 30 tablet, Refills 0, Maintenance, for indigestion, 03/26/21 15:26:00 EDT, Partial fill upon patient request if the prescription is for a schedule II opioid drug. Start Date: 03/26/21 Status: OrderedVitamin D3 50,000 intl units oral capsule 1 capsule = 1,250 mcg, By Mouth, Every week, # 12 capsule, 0 Refills, Maintenance, 03/26/21 14:27:00EDT, Capsule, Partial fill upon patient request if the prescription is for a schedule II opioid drug. Start Date: 03/26/21 Status: Ordered Social History Social History Type Response Smoking Status Former smoker; Tobacco user in household: No; Other: pt states she quit smoking in 1985; entered on: 12/21/15 Sex
--- OUTSIDE RECORDS SUMMARY | 2022-08-08 11:24 | XMS_ITS | Continuity of Care Document ---
:1955 Author Organization [facility] Address [address] [place] [id number]- Care Team Providers Name Role Phone Silvio-Vineet YOUNG, Betsy Primary Care Physician [phone] Encounter [facility] [place] Date(s): 07/30/21 - 08/06/21 [facility] [address] [place] [id number] Attending Physician: Josie Rivera MD Referring Physician: Rosy Griffiths MD Allergies, Adverse Reactions, Alerts No Known Allergies [...] 02/14/20 11:37:00 EDT, Route to Pharmacy Electronically, [facility], 148, cm, 02/13/20 20:30:00 EDT, [...] Refills, Maintenance, Tablet, Route to Pharmacy Electronically, [id number], [facility] Start Date: 11/16/15 Stop Date: 12/16/15 Status: Orderedmelatonin 3 mg oral tablet 1 tablet = 3 mg, By Mouth, Daily at bedtime, PRN Sleep, # 60 tablet, 0 Refills, Maintenance, 02/14/20 11:34:00 EDT, Tablet, [facility], 148, cm, 02/13/20 20:30:00 EDT, Height, 74.4, kg, 02/05/20 2:32:00 EDT, Dry Weight Start Date: 02/14/20 Status: Orderedmetoprolol 100 mg oral tablet, extended release 100 mg, 1, tablet, By Mouth, Daily in AM, # 30 tablet, Refills 0, Tot. Refills 0, Maintenance, 02/14/20 11:35:00 EDT, Route to Pharmacy Electronically, [facility], 148, cm, 02/13/20 20:30:00 EDT, Height, 74.4, kg, 02/05/20 2:32:00 EDT, D... Start Date: 02/14/20 Status: OrderedLian Casas 0 Refills, Maintenance, 03/26/21 15:26:00 EDT, Partial [...] 02/14/20 11:34:00 EDT, Route to Pharmacy Electronically, [facility], 148, cm, 02/13/20 20:30:00 EDT, [...]
--- OUTSIDE RECORDS SUMMARY | 2022-08-08 11:24 | XMS_ITS | Continuity of Care Document ---
:1955 Author Organization [facility] Address [address] [place] [id number]- Care Team Providers Name Role Phone Cody YOUNG, Betsy Primary Care Physician [phone] Encounter [facility] [place] ACCT R [id number] Date(s): 07/18/20 - 08/24/20 [facility] [address] [place] [id number] Attending Physician: Chauncey See MD Admitting Physician: Chauncey See MD Referring Physician: Betsy Ross MD Allergies, Adverse Reactions, Alerts Substance Reaction Severity Status NKA Active Medications aspirin 81 mg oral tablet 1 tablet = 81 mg, By Mouth, Daily, 0 Refills, Maintenance, 11/12/15 20:22:14 Start Date: 11/12/15 Status: Orderedcyanocobalamin 1000 mcg oral tablet 1,000 mcg, 1, tablet, By Mouth, Daily, # 30 tablet, Refills 0, Tot. Refills 0, Maintenance, 02/13/2011:34:00 EDT, Route to Pharmacy Electronically, [facility], 148, cm, 02/13/20 20:30:00EDT, Height, 74.4, kg, 02/05/20 2:32:00 EDT, Dry... Start Date: 02/14/20 Status: Orderedfolic acid 1 mg oral tablet 1 mg, 1, tablet, By Mouth, Daily, # 30 tablet, Refills 0, Tot. Refills 0, Maintenance, 02/14/20 11:34:00 EDT, Route to Pharmacy Electronically, [facility], 148, cm, 02/13/20 20:30:00 EDT,Height, 74.4, kg, 02/05/20 2:32:00 EDT, Dry Weight Start Date: 02/14/20 Status: Orderedgabapentin 100 mg oral capsule 100 mg, 1, capsule, By Mouth, 3 times a day, # 90 capsule, Refills 0, Tot. Refills 0, Maintenance, 02/14/20 11:37:00 EDT, Route to Pharmacy Electronically, [facility], 148, cm, 02/13/20 20:30:00 EDT, Height, 74.4, kg, 02/05/20 2:32:00 ED... Start Date: 02/14/20 Status: Orderedisosorbide mononitrate 30 mg oral tablet, extended release 30 mg, 1, tablet, By Mouth, Daily, # 30 tablet, Refills 0, Tot. Refills 0, Maintenance, 02/14/20 11:35:00 EDT, Route to Pharmacy Electronically, [facility], 148, cm, 02/13/20 20:30:00 EDT, Height, 74.4, kg, 02/05/20 2:32:00 EDT, Dry Weight Start Date: 02/14/20 Status: OrderedLantus 100 u/ml subcutaneous solution = 14 units, Subcutaneous Injection, Daily at bedtime, # 10 mL, 0 Refills, Maintenance, 02/14/20 14:00:00 EDT, Solution Start Date: 02/14/20 Status: OrderedLipitor 80 mg oral tablet 1 tablet = 80 mg, By Mouth, Daily at bedtime, # 30 tablet, 0 Refills, Maintenance, Tablet, Route to Pharmacy Electronically, [id number], [facility] Start Date: 11/16/15 Stop Date: 12/16/15 Status: Orderedmelatonin 3 mg oral tablet 1 tablet = 3 mg, By Mouth, Daily at bedtime, PRN Sleep, # 60 tablet, 0 Refills, Maintenance, 02/14/20 11:34:00 EDT, Tablet, [facility], 148, cm, 02/13/20 20:30:00 EDT, Height, 74.4, kg, 02/05/20 2:32:00 EDT, Dry Weight Start Date: 02/14/20 Status: Orderedmetoprolol 100 mg oral tablet, extended release 100 mg, 1, tablet, By Mouth, Daily in AM, # 30 tablet, Refills 0, Tot. Refills 0, Maintenance, 02/14/20 11:35:00 EDT, Route to Pharmacy Electronically, [facility], 148, cm, 02/13/20 20:30:00 EDT, Height, 74.4, kg, 02/05/20 2:32:00 EDT, D... Start Date: 02/14/20 Status: OrderedNIFEdipine 60 mg oral tablet, extended release 60 mg, 1, tablet, By Mouth, Daily, # 30 tablet, Refills 0, Tot. Refills 0, Maintenance, 02/14/20 11:34:00 EDT, Route to Pharmacy Electronically, [facility], 148, cm, 02/13/20 20:30:00 EDT, Height, 74.4, kg, 02/05/20 2:32:00 EDT, Dry Weight Start Date: 02/14/20 Status: Orderedsodium bicarbonate 650 mg oral tablet 2 tablet = 1,300 mg, By Mouth, Every 12 hours, # 50 tablet, 0 Refills, Maintenance, 02/14/20 11:34:00 EDT, Tablet, [facility], 148, cm, 02/13/20 20:30:00 EDT, Height, 74.4, kg, 02/05/20 2:32:00 EDT, Dry Weight Start Date: 02/14/20 Status: Ordered Social History Social History Type Response Smoking Status Former smoker; Tobacco user in household: No; Other: pt states she quit smoking in 1985; entered on: 12/21/15 Sex
--- OUTSIDE RECORDS SUMMARY | 2022-08-08 11:24 | XMS_ITS | Continuity of Care Document ---
:1955 Author Organization [facility] Address [address] [place] [address]- Care Team Providers Name Role Phone [place]-Vineet YOUNG, Betsy Primary Care Physician [phone] Encounter [facility] [place] Date(s): 04/12/20 - 04/12/[address] [address]- [facility] Discharge Disposition: A-D/C Home Attending Physician: Lionel Lozano DO Admitting Physician: Lionel Lozano DO Referring Physician: Not on Staff, Referring MD Allergies, Adverse Reactions, Alerts Substance Reaction Severity Status NKA Active Medications aspirin 81 mg oral tablet 1 tablet = 81 mg, By Mouth, Daily, 0 Refills, Maintenance, 11/12/15 20:22:14 Start Date: 11/12/15 Status: Orderedcyanocobalamin 1000 mcg oral tablet 1,000 mcg, 1, tablet, By Mouth, Daily, # 30 tablet, Refills 0, Tot. Refills 0, Maintenance, 02/13/2011:34:00 EDT, Route to Pharmacy Electronically, [facility], 148, cm, 02/13/20 20:30:00EDT, Height, 74.4, kg, 02/05/20 2:32:00 EDT, Dry... Start Date: 02/14/20 Status: Orderedfolic acid 1 mg oral tablet 1 mg, 1, tablet, By Mouth, Daily, # 30 tablet, Refills 0, Tot. Refills 0, Maintenance, 02/14/20 11:34:00 EDT, Route to Pharmacy Electronically, [facility], 148, cm, 02/13/20 20:30:00 EDT,Height, 74.4, kg, 02/05/20 2:32:00 EDT, Dry Weight Start Date: 02/14/20 Status: Orderedgabapentin 100 mg oral capsule 100 mg, 1, capsule, By Mouth, 3 times a day, # 90 capsule, Refills 0, Tot. Refills 0, Maintenance, 02/14/20 11:37:00 EDT, Route to Pharmacy Electronically, [facility] 3, 148, cm, 02/13/20 20:30:00 EDT, Height, 74.4, kg, 02/05/20 2:32:00 ED... Start Date: 02/14/20 Status: Orderedisosorbide mononitrate 30 mg oral tablet, extended release 30 mg, 1, tablet, By Mouth, Daily, # 30 tablet, Refills 0, Tot. Refills 0, Maintenance, 02/14/20 11:35:00 EDT, Route to Pharmacy Electronically, [facility] 3, 148, cm, 02/13/20 20:30:00 EDT, Height, [...] Refills, Maintenance, Tablet, Route to Pharmacy Electronically, [id number], [facility] 3 Start Date: 11/16/15 Stop Date: 12/16/15 Status: Orderedmelatonin 3 mg oral tablet 1 tablet = 3 mg, By Mouth, Daily at bedtime, PRN Sleep, # 60 tablet, 0 Refills, Maintenance, 02/14/20 11:34:00 EDT, Tablet, [facility] 3, 148, cm, 02/13/20 20:30:00 EDT, Height, 74.4, kg, 02/05/20 2:32:00 EDT, Dry Weight Start Date: 02/14/20 Status: Orderedmetoprolol 100 mg oral tablet, extended release 100 mg, 1, tablet, By Mouth, Daily in AM, # 30 tablet, Refills 0, Tot. Refills 0, Maintenance, 02/14/20 11:35:00 EDT, Route to Pharmacy Electronically, [facility], 148, cm, 02/13/20 20:30:00 EDT, Height, 74.4, kg, 02/05/20 2:32:00 EDT, D... Start Date: 02/14/20 Status: OrderedNIFEdipine 60 mg oral tablet, extended release 60 mg, 1, tablet, By Mouth, Daily, # 30 tablet, Refills 0, Tot. Refills 0, Maintenance, 02/14/20 11:34:00 EDT, Route to Pharmacy Electronically, [facility], 148, cm, 02/13/20 20:30:00 EDT, Height, 74.4, kg, 02/05/20 2:32:00 EDT, Dry Weight Start Date: 02/14/20 Status: Orderedsodium bicarbonate 650 mg oral tablet 2 tablet = 1,300 mg, By Mouth, Every 12 hours, # 50 tablet, 0 Refills, Maintenance, 02/14/20 11:34:00 EDT, Tablet, [facility], 148, cm, 02/13/20 20:30:00 EDT, Height, 74.4, kg, 02/05/20 2:32:00 EDT, Dry Weight Start Date: 02/14/20 Status: Ordered Vital Signs Most recent to oldest [Reference Range]: 1 Oxygen Saturation [94-100 %] 96 % (04/12/20 3:51 PM) Pulse Rate [55-90 bpm] 102 bpm *H* (04/12/20 3:51 PM) Blood Pressure [90-138/55-84 mm Hg] 163/112 mm Hg *H* (04/12/20 3:51 PM) Respiratory Rate [16-30 br/min] 20 br/min (04/12/20 3:51 PM) Temperature [96.8-100.4 DegF] 98.7 DegF (04/12/20 3:51 PM) Mode of Delivery (Oxygen) Room air (04/12/20 3:51 PM) Blood pressure sites Arm, right (10/14/20 3:51 PM) Temperature Route Oral (04/12/20 3:51 PM) Social History Social History Type Response Smoking Status Former smoker; Tobacco user in household: No; Other: pt states she quit smoking in 1985; entered on: 12/21/15 Sex
--- OUTSIDE RECORDS SUMMARY | 2022-08-08 11:24 | XMS_ITS | Continuity of Care Document ---
:1955 Author Organization [facility] Address [address] [place] [address]- Care Team Providers Name Role Phone [place]-Vineet YOUNG, Betsy Primary Care Physician [phone] [place] [facility] [place] 08/24/20 [facility] [address] [place] [address] Attending Physician: David Arriaga Admitting Physician: AdmtrDavid Referring Physician: Admtr, Ar8 Allergies, Adverse Reactions, Alerts Substance Reaction Severity Status NKA Active Medications aspirin 81 mg oral tablet 1 tablet = 81 mg, By Mouth, Daily, 0 Refills, Maintenance, 11/12/15 20:22:14 Start Date: 11/12/15 Status: Orderedcyanocobalamin 1000 mcg oral tablet 1,000 mcg, 1, tablet, By Mouth, Daily, # 30 tablet, Refills 0, Tot. Refills 0, Maintenance, 02/13/2011:34:00 EDT, Route to Pharmacy Electronically, [facility], 148, cm, 02/13/20 20:30:00EDT, Height, 74.4, kg, 02/05/20 2:32:00 EDT, Dry... Start Date: 02/14/20 Status: Orderedfolic acid 1 mg oral tablet 1 mg, 1, tablet, By Mouth, Daily, # 30 tablet, Refills 0, Tot. Refills 0, Maintenance, 02/14/20 11:34:00 EDT, Route to Pharmacy Electronically, [facility], 148, cm, 02/13/20 20:30:00 EDT,Height, 74.4, kg, 02/05/20 2:32:00 EDT, Dry Weight Start Date: 02/14/20 Status: Orderedgabapentin 100 mg oral capsule 100 mg, 1, capsule, By Mouth, 3 times a day, # 90 capsule, Refills 0, Tot. Refills 0, Maintenance, 02/14/20 11:37:00 EDT, Route to Pharmacy Electronically, [facility] 3, 148, cm, 02/13/20 20:30:00 EDT, Height, 74.4, kg, 02/05/20 2:32:00 ED... Start Date: 02/14/20 Status: Orderedisosorbide mononitrate 30 mg oral tablet, extended release 30 mg, 1, tablet, By Mouth, Daily, # 30 tablet, Refills 0, Tot. Refills 0, Maintenance, 02/14/20 11:35:00 EDT, Route to Pharmacy Electronically, [facility] 3, 148, cm, 02/13/20 20:30:00 EDT, Height, [...] Refills, Maintenance, Tablet, Route to Pharmacy Electronically, [id number], [facility] 3 Start Date: 11/16/15 Stop Date: 12/16/15 Status: Orderedmelatonin 3 mg oral tablet 1 tablet = 3 mg, By Mouth, Daily at bedtime, PRN Sleep, # 60 tablet, 0 Refills, Maintenance, 02/14/20 11:34:00 EDT, Tablet, [facility] 3, 148, cm, 02/13/20 20:30:00 EDT, Height, 74.4, kg, 02/05/20 2:32:00 EDT, Dry Weight Start Date: 02/14/20 Status: Orderedmetoprolol 100 mg oral tablet, extended release 100 mg, 1, tablet, By Mouth, Daily in AM, # 30 tablet, Refills 0, Tot. Refills 0, Maintenance, 02/14/20 11:35:00 EDT, Route to Pharmacy Electronically, [facility], 148, cm, 02/13/20 20:30:00 EDT, Height, 74.4, kg, 02/05/20 2:32:00 EDT, D... Start Date: 02/14/20 Status: OrderedNIFEdipine 60 mg oral tablet, extended release 60 mg, 1, tablet, By Mouth, Daily, # 30 tablet, Refills 0, Tot. Refills 0, Maintenance, 02/14/20 11:34:00 EDT, Route to Pharmacy Electronically, [facility], 148, cm, 02/13/20 20:30:00 EDT, Height, 74.4, kg, 02/05/20 2:32:00 EDT, Dry Weight Start Date: 02/14/20 Status: Orderedsodium bicarbonate 650 mg oral tablet 2 tablet = 1,300 mg, By Mouth, Every 12 hours, # 50 tablet, 0 Refills, Maintenance, 02/14/20 11:34:00 EDT, Tablet, [facility], 148, cm, 02/13/20 20:30:00 EDT, Height, 74.4, kg, 02/05/20 2:32:00 EDT, Dry Weight Start Date: 02/14/20 Status: Ordered Social History Social History Type Response Smoking Status Former smoker; Tobacco user in household: No; Other: pt states she quit smoking in 1985; entered on: 12/21/15 Sex
--- OUTSIDE RECORDS SUMMARY | 2022-08-08 11:24 | XMS_ITS | Continuity of Care Document ---
:1955 Author Organization [facility] Address [address] [place] [address]- Care Team Providers Name Role Phone [place]-Vineet YOUNG, Betsy Primary Care Physician Encounter [facility] [place] Date(s): 05/10/20 - 06/09/20 [facility] [address] [place], [place] [address] Attending Physician: David Arriaga Admitting Physician: Admtr, [id number] Referring Physician: Admtr, Ar8 Allergies, Adverse Reactions, [...] Maintenance, 02/13/2011:34:00 EDT, Route to Pharmacy Electronically, [facility], 148, cm, 02/13/20 20:30:00EDT, Height, 74.4, kg, 02/05/20 2:32:00 EDT, Dry... Start Date: 02/14/20 Status: Orderedfolic acid 1 mg oral tablet 1 mg, 1, tablet, By Mouth, Daily, # 30 tablet, Refills 0, Tot. Refills 0, Maintenance, 02/14/20 11:34:00 EDT, Route to Pharmacy Electronically, [facility], 148, cm, 02/13/20 20:30:00 EDT,Height, 74.4, kg, 02/05/20 2:32:00 EDT, Dry Weight Start Date: 02/14/20 Status: Orderedgabapentin 100 mg oral capsule 100 mg, 1, capsule, By Mouth, 3 times a day, # 90 capsule, Refills 0, Tot. Refills 0, Maintenance, 02/14/20 11:37:00 EDT, Route to Pharmacy Electronically, [facility], 148, cm, 02/13/20 20:30:00 EDT, Height, 74.4, kg, 02/05/20 2:32:00 ED... Start Date: 02/14/20 Status: Orderedisosorbide mononitrate 30 mg oral tablet, extended release 30 mg, 1, tablet, By Mouth, Daily, # 30 tablet, Refills 0, Tot. Refills 0, Maintenance, 02/14/20 11:35:00 EDT, Route to Pharmacy Electronically, [facility] 3, 148, cm, 02/13/20 20:30:00 EDT, Height, [...] Refills, Maintenance, Tablet, Route to Pharmacy Electronically, [id number], [facility] 3 Start Date: 11/16/15 Stop Date: 12/16/15 Status: Orderedmelatonin 3 mg oral tablet 1 tablet = 3 mg, By Mouth, Daily at bedtime, PRN Sleep, # 60 tablet, 0 Refills, Maintenance, 02/14/20 11:34:00 EDT, Tablet, [facility] 3, 148, cm, 02/13/20 20:30:00 EDT, Height, 74.4, kg, 02/05/20 2:32:00 EDT, Dry Weight Start Date: 02/14/20 Status: Orderedmetoprolol 100 mg oral tablet, extended release 100 mg, 1, tablet, By Mouth, Daily in AM, # 30 tablet, Refills 0, Tot. Refills 0, Maintenance, 02/14/20 11:35:00 EDT, Route to Pharmacy Electronically, [facility], 148, cm, 02/13/20 20:30:00 EDT, Height, 74.4, kg, 02/05/20 2:32:00 EDT, D... Start Date: 02/14/20 Status: OrderedNIFEdipine 60 mg oral tablet, extended release 60 mg, 1, tablet, By Mouth, Daily, # 30 tablet, Refills 0, Tot. Refills 0, Maintenance, 02/14/20 11:34:00 EDT, Route to Pharmacy Electronically, [facility], 148, cm, 02/13/20 20:30:00 EDT, Height, 74.4, kg, 02/05/20 2:32:00 EDT, Dry Weight Start Date: 02/14/20 Status: Orderedsodium bicarbonate 650 mg oral tablet 2 tablet = 1,300 mg, By Mouth, Every 12 hours, # 50 tablet, 0 Refills, Maintenance, 02/14/20 11:34:00 EDT, Tablet, [facility], 148, cm, 02/13/20 20:30:00 EDT, Height, 74.4, kg, 02/05/20 2:32:00 EDT, Dry Weight Start Date: 02/14/20 Status: Ordered Social History Social History Type Response Smoking Status Former smoker; Tobacco user in household: No; Other: pt states she quit smoking in 1985; entered on: 12/21/15 Sex
--- OUTSIDE RECORDS SUMMARY | 2022-08-08 11:24 | XMS_ITS | Continuity of Care Document ---
:1955 Author Organization [facility] Address Unavailable , Care Team Providers Name Role Phone [place]-Betsy Manley MD Primary Care Physician [phone] Encounter [facility] [place] Date(s): 03/26/21 - 04/25/21 [facility] Attending Physician: David Arriaga Admitting Physician: David Arriaga Referring Physician: David Arriaga Allergies, Adverse Reactions, Alerts Substance Reaction Severity Status NKA Active Immunizations Given and Recorded Vaccine Date Status [...] 02/14/20 11:37:00 EDT, Route to Pharmacy Electronically, [facility], 148, cm, 02/13/20 20:30:00 [...] Refills, Maintenance, Tablet, Route to Pharmacy Electronically, [id number], [facility] Start Date: 11/16/15 Stop Date: 12/16/15 Status: Orderedmelatonin 3 mg oral tablet 1 tablet = 3 mg, By Mouth, Daily at bedtime, PRN Sleep, # 60 tablet, 0 Refills, Maintenance, 02/14/20 11:34:00 EDT, Tablet, [facility], 148, cm, 02/13/20 20:30:00 EDT, Height, 74.4, kg, 02/05/20 2:32:00 EDT, Dry Weight Start Date: 02/14/20 Status: Orderedmetoprolol 100 mg oral tablet, extended release 100 mg, 1, tablet, By Mouth, Daily in AM, # 30 tablet, Refills 0, Tot. Refills 0, Maintenance, 02/14/20 11:35:00 EDT, Route to Pharmacy Electronically, [facility], 148, cm, 02/13/20 20:30:00 EDT, Height, 74.4, kg, 02/05/20 2:32:00 EDT, D... Start Date: 02/14/20 Status: OrderedLian Thistle 0 Refills, Maintenance, 03/26/21 15:26:00 EDT, Partial [...] 02/14/20 11:34:00 EDT, Route to Pharmacy Electronically, [facility], 148, cm, 02/13/20 20:30:00 [...]
--- OUTSIDE RECORDS SUMMARY | 2022-08-08 11:24 | XMS_ITS | Continuity of Care Document ---
:1955 Author Organization [facility] Address Unavailable , Care Team Providers Name Role Phone [place]-Betsy Manley MD Primary Care Physician Encounter [facility] [place] Date(s): 02/24/21 - 04/25/21 [facility] Attending Physician: Andrea Macedo MD Admitting Physician: Andrea Macedo MD Allergies, Adverse Reactions, Alerts Substance Reaction [...] 02/14/20 11:37:00 EDT, Route to Pharmacy Electronically, [facility] 3, 148, cm, 02/13/20 20:30:00 EDT, [...] Refills, Maintenance, Tablet, Route to Pharmacy Electronically, [id number], [facility] 3 Start Date: 11/16/15 Stop Date: 12/16/15 Status: Orderedmelatonin 3 mg oral tablet 1 tablet = 3 mg, By Mouth, Daily at bedtime, PRN Sleep, # 60 tablet, 0 Refills, Maintenance, 02/14/20 11:34:00 EDT, Tablet, [facility] 3, 148, cm, 02/13/20 20:30:00 EDT, Height, 74.4, kg, 02/05/20 2:32:00 EDT, Dry Weight Start Date: 02/14/20 Status: Orderedmetoprolol 100 mg oral tablet, extended release 100 mg, 1, tablet, By Mouth, Daily in AM, # 30 tablet, Refills 0, Tot. Refills 0, Maintenance, 02/14/20 11:35:00 EDT, Route to Pharmacy Electronically, [facility] 3, 148, cm, 02/13/20 20:30:00 EDT, Height, 74.4, kg, 02/05/20 2:32:00 EDT, D... Start Date: 02/14/20 Status: OrderedMilk Thistle 0 Refills, Maintenance, 03/26/21 15:26:00 EDT, [...] 02/14/20 11:34:00 EDT, Route to Pharmacy Electronically, [facility], 148, cm, 02/13/20 20:30:00 [...]
--- OUTSIDE RECORDS SUMMARY | 2022-08-08 11:24 | XMS_ITS | Continuity of Care Document ---
:1955 Author Organization [facility] Address [address] [place] [address]- Care Team Providers Name Role Phone [place]-Vineet YOUNG, Betsy Primary Care Physician Encounter [facility] [place] Date(s): 02/04/20 - 02/14/[address] [address]- [facility] Encounter Diagnosis Nephrotic syndrome (Final) - 02/04/20 Discharge Disposition: A-D/C Home Attending Physician: Rufino Markham MD, Dick Bailey Admitting Physician: Matt Lopez MD Referring Physician: Not on Staff, Referring MD Allergies, Adverse Reactions, Alerts Substance Reaction Severity Status NKA Active Medications aspirin 81 mg oral tablet 1 tablet = 81 mg, By Mouth, Daily, 0 Refills, Maintenance, 11/12/15 20:22:14 Start Date: 11/12/15 Status: OrderedAtivan 0.5 mg oral tablet 0.5 tablet = 0.25 mg, By Mouth, 2 times a day, PRN anxiety, short term use only for as needed anxiety, # 10 tablet, 0 Refills, Acute 02/21/20 9:00:00 EDT, 02/14/20 13:52:00 EDT, Tablet Start Date: 02/14/20 Stop Date: 02/21/20 Status: Orderedcyanocobalamin 1000 mcg oral tablet 1,000 mcg, 1, tablet, By Mouth, Daily, # 30 tablet, Refills 0, Tot. Refills 0, Maintenance, 02/13/2011:34:00 EDT, Route to Pharmacy Electronically, [facility], 148, cm, 02/13/20 20:30:00EDT, Height, 74.4, kg, 02/05/20 2:32:00 EDT, Dry... Start Date: 02/14/20 Status: Orderedfolic acid 1 mg oral tablet 1 mg, 1, tablet, By Mouth, Daily, # 30 tablet, Refills 0, Tot. Refills 0, Maintenance, 02/14/20 11:34:00 EDT, Route to Pharmacy Electronically, [facility] 3, 148, cm, 02/13/20 20:30:00 EDT,Height, 74.4, kg, 02/05/20 2:32:00 EDT, Dry Weight Start Date: 02/14/20 Status: Orderedgabapentin 100 mg oral capsule 100 mg, 1, capsule, By Mouth, 3 times a day, # 90 capsule, Refills 0, Tot. Refills 0, Maintenance, 02/14/20 11:37:00 EDT, Route to Pharmacy Electronically, [facility] 3, 148, cm, 02/13/20 20:30:00 EDT, Height, 74.4, kg, 02/05/20 2:32:00 ED... Start Date: 02/14/20 Status: Orderedisosorbide mononitrate 30 mg oral tablet, extended release 30 mg, 1, tablet, By Mouth, Daily, # 30 tablet, Refills 0, Tot. Refills 0, Maintenance, 02/14/20 11:35:00 EDT, Route to Pharmacy Electronically, [facility] 3, 148, cm, 02/13/20 20:30:00 [...] Refills, Maintenance, Tablet, Route to Pharmacy Electronically, [id number], [facility] 3 Start Date: 11/16/15 Stop Date: 6/18/16 Status: Orderedmelatonin 3 mg oral tablet 1 tablet = 3 mg, By Mouth, Daily at bedtime, PRN Sleep, # 60 tablet, 0 Refills, Maintenance, 02/14/20 11:34:00 EDT, Tablet, [facility], 148, cm, [...] Maintenance, 02/14/20 11:34:00 EDT, Tablet, [facility], 148, cm, 02/13/20 20:30:00 EDT, Height, 74.4, kg, 02/05/20 2:32:00 EDT, Dry Weight Start Date: 02/14/20 Status: Ordered Results Radiology Reports Exam Date Time Procedure Performing Provider Status 02/05/20 4:18 AM Chest Portable Anali Roberts; Joanne (Verified) Notes:(Chest Portable) Reason For Exam: Shortness of BreathRESULT: Chest Portable Chest Portable Refer to EMR; Reason: Shortness of Breath; Clinical Question(s): COMPARISON: 03/28/2010 FINDINGS: LINES AND TUBES: None. LUNGS AND PLEURA: Lung volumes are low. There is patchy right basilar opacity and thickening of the right minor fissure. Likely trace right pleural effusion. Left lung is clear. HEART, MEDIASTINUM AND OCTAVIO: Heart is normal in size. Normal mediastinal and hilar contour. BONES AND SOFT TISSUES: No acute abnormality. IMPRESSION: Patchy right basilar opacity, likely atelectasis, infiltrate not excluded. Trace right pleural effusion. WSN: [id number] Ordering Physician: Erica Candelario Dictated By: Joce Cuello MD Dictated Date/Time: 02/05/20 10:33 a Reviewed By: Joce Cuello MD Signed By: Joce Cuello MD Signed Date/Time: 02/05/20 10:33 am Transcribed By: JACKY Transcribed Date/Time: 02/05/20 10:32 am Vital Signs Most recent to oldest 1 2 3 [Reference Range]: Height 148 cm 148 cm 148 cm (02/14/20 11:51 AM) (02/13/20 8:00 PM) (02/13/20 4: 31 PM) Weight 67.1 kg 66.95 kg 68.5 kg (02/14/20 6:50 AM) (02/13/20 7:57 AM) (02/12/20 4:4 9 AM) Oxygen Saturation [94-100 %] 98 % 95 % 97 % (02/14/20 11:51 AM) (02/13/20 8:00 PM) (02/13/20 4: 31 PM) Pulse Rate [55-90 bpm] 70 bpm 77 bpm 77 bpm (02/14/20 11:51 AM) (02/13/20 8:40 PM) (02/13/20 8: 00 PM) Body Mass Index [18.5-24.99] 33.97 *>HHI* (02/05/20 1:46 AM) Blood Pressure [90-138/55-84 170/77 mm Hg 134/72 mm Hg 134 /72 mm Hg mm Hg] *H* (02/13/20 8:40 PM) (02/13/20 8:00 PM) (02/14/20 11:51 AM) Respiratory Rate [16-30 18 br/min 18 br/min 18 br/mi n br/min] (02/14/20 11:51 AM) (02/14/20 9:27 AM) (02/14/20 8: 27 AM) Temperature [96.8-100.4 DegF] 97.5 DegF 98.2 DegF 97 .3 DegF (02/14/20 11:51 AM) (02/13/20 8:00 PM) (02/13/20 4: 31 PM) Mode of Delivery (Oxygen) Room air Room air Room a ir (02/14/20 11:51 AM) (02/13/20 8:00 PM) (02/13/20 4: 31 PM) Blood pressure sites Arm, left Arm, left Arm, left (02/14/20 11:51 AM) (02/13/20 8:00 PM) (02/13/20 4: 31 PM) Temperature Route Oral Oral Oral (02/14/20 11:51 AM) (02/13/20 8:00 PM) (02/13/20 4: 31 PM) Dry Weight 74.4 kg (02/05/20 1:46 AM) Weight Obtained Via Standing scale Standing scale Standing sca le (02/14/20 6:50 AM) (02/13/20 7:57 AM) (02/12/20 4:4 9 AM) Dry Weight Obtained Via Standing scale (02/05/20 1:46 AM) Social History Social History Type Response Smoking Status Former smoker; Tobacco user in household: No; Other: pt states she quit smoking in 1985; entered on: 12/21/15 Sex
--- OUTSIDE RECORDS SUMMARY | 2022-08-08 11:24 | XMS_ITS | Continuity of Care Document ---
:1955 Author Organization [facility] Address [address] [place] [address]- Care Team Providers Name Role Phone Silvio-Vineet YOUNG, Betsy Primary Care Physician [place] [facility] [place](s): 11/14/21 - 12/14/21 [facility] [address] [place] [address] Attending Physician: David Arriaga Admitting Physician: AdmtrDavid Referring Physician: Admtr, ArPema Allergies, Adverse Reactions, Alerts No Known Allergies [...] 02/14/20 11:37:00 EDT, Route to Pharmacy Electronically, [facility] 3, 148, cm, 02/13/20 20:30:00 [...] Refills, Maintenance, Tablet, Route to Pharmacy Electronically, [id number], [facility] 3 Start Date: 11/16/15 Stop Date: 12/16/15 Status: Orderedmelatonin 3 mg oral tablet 1 tablet = 3 mg, By Mouth, Daily at bedtime, PRN Sleep, # 60 tablet, 0 Refills, Maintenance, 02/14/20 11:34:00 EDT, Tablet, [facility] 3, 148, cm, 02/13/20 20:30:00 EDT, Height, 74.4, kg, 02/05/20 2:32:00 EDT, Dry Weight Start Date: 02/14/20 Status: Orderedmetoprolol 100 mg oral tablet, extended release 100 mg, 1, tablet, By Mouth, Daily in AM, # 30 tablet, Refills 0, Tot. Refills 0, Maintenance, 02/14/20 11:35:00 EDT, Route to Pharmacy Electronically, [facility], 148, cm, 02/13/20 20:30:00 EDT, [...] 02/14/20 11:34:00 EDT, Route to Pharmacy Electronically, [facility], 148, cm, 02/13/20 20:30:00 [...]
--- OUTSIDE RECORDS SUMMARY | 2022-08-08 11:24 | XMS_ITS | Continuity of Care Document ---
:1955 Author Organization [facility] Address [address] [place] [id number] Care Team Providers Name Role Phone Cody YOUNG, Betsy Primary Care Physician Encounter [facility] Date(s): 08/16/21 - 12/14/21 [facility] [address] [place] [id number] Attending Physician: Josie Rivera MD Referring Physician: Betsy Ross MD Allergies, Adverse Reactions, Alerts No Known [...] 11:37:00 EDT, Route to Pharmacy Electronically, [facility], 148, cm, 02/13/20 20:30:00 [...] Refills, Maintenance, Tablet, Route to Pharmacy Electronically, [id number], [facility] Start Date: 11/16/15 Stop Date: 12/16/15 Status: Orderedmelatonin 3 mg oral tablet 1 tablet = 3 mg, By Mouth, Daily at bedtime, PRN Sleep, # 60 tablet, 0 Refills, Maintenance, 02/14/20 11:34:00 EDT, Tablet, [facility], 148, cm, 02/13/20 20:30:00 EDT, Height, 74.4, kg, 02/05/20 2:32:00 EDT, Dry Weight Start Date: 02/14/20 Status: Orderedmetoprolol 100 mg oral tablet, extended release 100 mg, 1, tablet, By Mouth, Daily in AM, # 30 tablet, Refills 0, Tot. Refills 0, Maintenance, 02/14/20 11:35:00 EDT, Route to Pharmacy Electronically, [facility], 148, cm, 02/13/20 20:30:00 [...] 11:34:00 EDT, Route to Pharmacy Electronically, [facility], 148, cm, 02/13/20 20:30:00 [...]
[2022-08-08 11:40] LABS: Basophils Percent Auto 0.3 % (0-2); Eosinophils Absolute Auto 2.8 X10*3/uL (0.0-0.4); Eosinophils Percent Auto 23.8 % (0-4); Hematocrit 26.8 % (37.0-47.0); Hemoglobin 9.1 g/dl (12.0-16.0); Imm Gran Abs Auto 0.04 X10*3/uL (0.00-0.03); Imm Gran Pct Auto 0.3 % (0.0-0.4); Lymphocytes Absolute Auto 1.5 X10*3/uL (1.2-4.9); Lymphocytes Percent Auto 12.6 % (20-40); MANUAL DIFF FLAG SCAN; Mean Corpuscular Hemoglobin 33.3 pg (27.0-33.0); Mean Corpuscular Volume 98.2 fL (80.0-98.0); Mean Platelet Volume 8.6 fL (9.4-12.3); Monocytes Absolute Auto 0.8 X10*3/uL (0.1-1.2); Monocytes Percent Auto 6.6 % (2-11); Neutrophils Absolute Auto 6.7 x10*3/uL (2.0-8.3); Neutrophils Percent Auto 56.4 % (45-73); Platelet Count 166 X10*3/uL (160-400); Red Blood Count 2.73 X10*6/uL (4.20-5.50); Red Cell Distribution Width 14.9 % (11.0-16.0); SCAN SMEAR FLAG 1; White Blood Count 11.9 X10*3/uL (4.8-10.8)
[2022-08-08 11:56] LABS: COVID-19 Test Negative (Negative); IDNOW Serial# 55D5AD1C
[2022-08-08 12:02] LABS: SLIDE REVIEW VERIFIED
[2022-08-08 12:04] VITALS: BP 204/96; PULSE 99; RESP 16; O2SAT 87
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
[2022-08-08 12:23] VITALS: BP 193/92; PULSE 97; RESP 19; O2SAT 91
[2022-08-08] MEDS: Nitroglycerin 2 % Oint 1 GM Packet 1 INCH TRANSDERMA (12:25)
[2022-08-08] MEDS: Acetaminophen 325 MG TABLET 975 MG PO (12:26)
[2022-08-08 12:29] LABS: Alanine Aminotransferase 22 U/L (0-31); Alkaline Phosphatase 88 U/L (39-117); Anion Gap 23 (12-20); Aspartate Amino Transferase 22 U/L (5-31); Bilirubin Direct 0.2 mg/dL (0.0-0.5); Bilirubin Total 0.7 mg/dL (0.0-1.0); Blood Urea Nitrogen 38 mg/dL (9-16); Calcium 9.1 mg/dL (8.4-10.2); Carbon Dioxide 30 mmol/L (22-29); Chloride 91 mmol/L (96-108); Creatinine Clr Calc Pharmacy 6.1; Estimated Glomerular Filt Rate 5; Glucose Random 164 mg/dL (60-115); Magnesium 2.3 mg/dL (1.6-2.6); Potassium 3.5 mmol/L (3.3-5.1); Sodium 140 mmol/L (135-145); Total Protein 7.8 g/dL (6.5-8.0)
--- NOTE | 2022-08-08 12:32 | ECG_ITS ---
Test Reason : SOB Blood Pressure : / mmHG Vent. Rate : 096 BPM Atrial Rate : 096 BPM P-R Int : 160 ms QRS Dur : 078 ms QT Int : 400 ms P-R-T Axes : 043 005 020 degrees QTc Int : 505 ms Normal sinus rhythm Minimal voltage criteria for LVH, may be normal variant ( R in aVL ) Prolonged QT Abnormal ECG When compared with ECG of 22-AUG-2021 21:45, Nonspecific T wave abnormality now evident in Anterior leads Referred By: Jil Samayoa Electronically Signed By:MEGHNA ROSENBAUM MD
[2022-08-08 13:20] VITALS: BP 194/90; PULSE 97; RESP 17; O2SAT 99
--- NOTE | 2022-08-08 13:30 | PC.NURSE ---
hypoxia noted 88-92% placed on 3l nc. pa aware. plan for dialysis and admission
--- NOTE | 2022-08-08 14:34 | ECG_ITS ---
Test Reason : SOB Blood Pressure : / mmHG Vent. Rate : 094 BPM Atrial Rate : 094 BPM P-R Int : 158 ms QRS Dur : 082 ms QT Int : 404 ms P-R-T Axes : 034 006 029 degrees QTc Int : 505 ms Normal sinus rhythm Minimal voltage criteria for LVH, may be normal variant ( R in aVL ) Prolonged QT Abnormal ECG When compared with ECG of 08-AUG-2022 13:13, No significant change was found Referred By: Jil Samayoa Electronically Signed By:MEGHNA ROSENBAUM MD
--- NOTE | 2022-08-08 14:35 | P.HPHOSP_ITS ---
History of Present Illness Date of Service: 08/08/22 Chief Complaint: Fall, nose bleed, shortness of breath The patient is a 67 yo F with a ESRD (plus others listed below) on HD T, , S who presents to the ED for evaluation after she sustained a fall from sofa/bed while sleeping. The patient reports that she is currently living in a hotel due to issues with her home. She reports that during the night prior to admission, she must have fallen out of bed while sleeping and injured the L-side of her face including eye and nose. She developed epistaxis and yvonne-oribal swelling. She denies syncope/LOC. She reports she was in her usual state of health prior to the evening. She did mentioned that she was recovering from an URI. Initially, her plan was to go for her scheduled dialysis however, she began developing a headache and some trouble breathing and hence she presented to the ED. Of note, the pt reports that she last took her antihypertensives 5 days prior to hospitalization. Work up in the ED was negative for any acute fractures on the head/face. She was hypertensive over 200/100 and hypoxic down to 87% on RA. CXR showed mild congestive changes. She was given a nitropaste of her BP and tylenol for pain. 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 Review of Systems Review of Systems: negative except HPI [facility] Medical History CAD (coronary artery disease) Diabetes End stage chronic kidney disease HTN (hypertension) HTN (hypertension) Hyperlipidemia Family History Father No problems noted. Mother No problems noted. Surgical History Hx of cardiac catheterization Social History Household Members: None Housing: House Do you presently have visiting nurse or other home services: No Alcohol intake: never Patient Tobacco Use Status: Never used Tobacco Years Smoked: 4+ Advance Directives: Yes Advance Directives on File: Yes Advance Directives Date on File: 01/02/21 service: No Current occupational status: employed Meds Allergies Allergy/AdvReac Type Severity Reaction Status Date / Time No Known Allergies Allergy Verified 10/26/21 13:30 [No Known Allergies*] Active Medications: Current Medications Acetaminophen (Acetaminophen 325 Mg Tablet) 650 mg PO Q6H PRN PRN Reason: Pain, Mild (Pain Scale 1-3) Ondansetron HCl (Ondansetron Hcl 4 Mg/2 Ml Vial) 4 mg IVPUSH Q8H PRN PRN Reason: Nausea and Vomiting Pharmacy Consult (Consult Rx Perform Med Rec) 1 each MISCELLANE ONCE PRN PRN Reason: Consult order Sodium Chloride (0.9 % Sodium Chloride Flush 3 Ml Syringe) 3 ml [facility]USH [facility] Home Medications Medication Instructions Recorded Confirmed Last Taken Type insulin glargine 100 unit/mL (3 19 unit subcut BEDTIME 12/30/20 08/08/22 06/25/21 History mL) subcutaneous pen (Lantus Solostar U-100 Insulin) metoprolol tartrate 100 mg tablet 50 mg PO BID 12/30/20 08/08/22 06/25/21 History aspirin 81 mg tablet,delayed 81 mg PO DAILY 05/12/21 10/26/21 06/25/21 History release omega-3 fatty acids 1,000 mg PO DAILY 06/26/21 10/26/21 06/25/21 History vitamin B complex-vitamin C-folic 1 tab PO DAILY 06/26/21 08/08/22 06/25/21 Hist ory acid 0.8 mg tablet (Nephro-Gemini) atorvastatin 80 mg tablet 80 mg PO BEDTIME 10/26/21 08/08/22 Unknown History docusate sodium 100 mg capsule 100 mg PO BEDTIME 10/26/21 10/26/21 Unknown H istory isosorbide mononitrate 60 mg 60 mg PO DAILY 10/26/21 08/08/22 Unknown History tablet,extended release 24 hr gabapentin 300 mg capsule 1 cap PO DAILY 08/08/22 08/08/22 Unknown History midodrine 10 mg tablet 10 - 20 mg PO TUTHSA 08/08/22 08/08/22 Unknown History multivit with 1 tab PO DAILY 08/08/22 08/08/22 08/03/22 History dzuuylqx-bfky-BR-lutein 8 mg iron-400 mcg-300 mcg tablet (Centrum Silver Women) torsemide 20 mg tablet 2 tab PO BID 08/08/22 08/08/22 Unknown History Physical Exam Vital Signs and Narrative: Vital Signs: Last Vital Signs Temp 98.3 F 08/08/22 11:12 Pulse 97 08/08/22 13:20 Resp 17 08/08/22 13:20 BP 194/90 H 08/08/22 13:20 Pulse Ox 99 08/08/22 13:20 O2 Del Method 08/08/22 13:20 BMI result Body Mass Index 31.5 Const: Other: Constitutional - Awake and Alert, No apparent distress HEENT - L periorbital mild swelling with minimal erythema Cardiovascular - S1S2, RRR, No edema Respiratory - Rales in the bilateral bases; saturation 91% on 2L; breathing comfortably on oxygen Gastrointestinal - NT / ND; +BS; No rebound or guarding - No CVA tenderness Extremities - no calf tenderness bilaterally, no swelling Musculoskeletal - Normal inspection, normal ROM Skin - Warm/Dry Neurological - Alert & oriented x3, No focal deficit Psychological - Appropriate affect Results Labs 08/08/22 11:28 08/08/22 11:28 Labs: Laboratory Results - last 24 hr 08/08/22 08/08/22 08/08/22 11:24 11:28 11:28 MCV 98.2 H MCH 33.3 H MCHC 34.0 RDW 14.9 Plt Count 166 MPV 8.6 L Immature Gran % (Auto) 0.3 Neut % (Auto) 56.4 Lymph % (Auto) 12.6 L Coke % (Auto) 6.6 Eos % (Auto) 23.8 H Baso % (Auto) 0.3 Lymph # (Auto) 1.5 Coke # (Auto) 0.8 Eos # (Auto) 2.8 H Baso # (Auto) 0.0 Abs Immat Gran (auto) 0.04 H Absolute Neuts (auto) 6.7 Absolute Nucleated RBC 0.000 Nucleated RBC % (auto) 0.0 Smear Tech's Comments VERIFIED Anion Gap 23 H Estim Creat Clear Calc 6.1 Estimated GFR 5 Random Glucose 164 H Calcium 9.1 Magnesium 2.3 Total Bilirubin 0.7 Direct Bilirubin 0.2 AST 22 ALT 22 Alkaline Phosphatase 88 Total Protein 7.8 Albumin 4.0 COVID-19 ([facility]LM[facility]) Negative COVID-19 Clin Com See Note Imaging Radiologist's Impressions: Impressions Cervical Spine CT 08/08/22 12:09 IMPRESSION: Negative acute noncontrast CT of the brain. No fracture or dislocation of the cervical spine. No facial bone fracture. Note is made of a soft tissue lesion associated with the left cheek and some prominent neck adenopathy pathologically enlarged. This may be reactive. Underlying malignancy of course cannot be excluded. Correlation recommended clinically. Recommend contrast enhanced CT neck for full evaluation. This may be done on an outpatient basis. Face CT 08/08/22 12:09 IMPRESSION: Negative acute noncontrast CT of the brain. No fracture or dislocation of the cervical spine. No facial bone fracture. Note is made of a soft tissue lesion associated with the left cheek and some prominent neck adenopathy pathologically enlarged. This may be reactive. Underlying malignancy of course cannot be excluded. Correlation recommended clinically. Recommend contrast enhanced CT neck for full evaluation. This may be done on an outpatient basis. Head CT 08/08/22 12:09 IMPRESSION: Negative acute noncontrast CT of the brain. No fracture or dislocation of the cervical spine. No facial bone fracture. Note is made of a soft tissue lesion associated with the left cheek and some prominent neck adenopathy pathologically enlarged. This may be reactive. Underlying malignancy of course cannot be excluded. Correlation recommended clinically. Recommend contrast enhanced CT neck for full evaluation. This may be done on an outpatient basis. Chest X-Ray 08/08/22 12:41 IMPRESSION: Overall interval improvement with decreased markings at the left lung base. Mild residual markings could represent mild central congestion/atelectasis. Assessment and Plan (1) Hypertensive urgency: Status: Acute Plan 67 yo F with a PMH of ESRD on HD TTHS, DM, CAD s/p DAVID in 2016, HTN who presents to the ED with shortness of breath + fall resulting in epistaxis and yvonne- orbital swelling. She is hypertensive and hypoxic with signs of fluid overload. She will need urgent dialsis. 1. Hypertensive urgency BP > 220/110 upon arrival; slowly improving with nitropaste Has not taken her BP meds in 5 days. Suspect it will improve with dialysis, but likely will need to restart her meds 2. Acute respiratory failure with hypoxia secondary to fluid overload -- flash pulm edema from HTN vs fluid overload from dialysis. continue 2L wean as tolerated 3. ESRD on HD due for HD today given her BP and hypoxia, will require urgent dialysis; Per ED team, nephrology as been consulted and she will be dialyzed shortly 4. DM basal+bolus 5. CAD s/p DAVID in 2016 continue baseline meds, hold aspirin today due to epistaxis 6. Abnormal CT face soft issue lesion and lymphadenopathy noted -- see full report for details; recommend CT neck with contrast which may be done on outpatient basis informed the patient of this abnormal result and advised to f/u with her outpatient providers Full Code DVT pptx, mechanical due to epistaxis In light of her hypoxia and HTN urgency + non-compliance with medications, I anticipate she will likely require an inpatient hospitalization which is likely to span 2 midnights. Time Spent With Patient Time: Total time managing care of this patient today ____ minutes. Quality Stroke Does the patient have a stroke diagnosis?: No VTE Prior VTE?: No VTE Risk Level:: Medical - moderate - high VTE Device Contraindication: Treatment Not Indicated VTE Drug Contraindication: Treatment Not Tolerated
--- NOTE | 2022-08-08 14:37 | PHA.MEDREC ---
Pharmacy Consult ? Medication Reconciliation Pharmacy has completed the medication reconciliation. Patient confirmed all medications. Genesis Nguyen, GeethaD
--- NOTE | 2022-08-08 15:30 | PC.NURSE ---
pt to dialysis
[2022-08-08 19:21] VITALS: BMI 29.2
[2022-08-08 19:42] VITALS: BP 160/80; PULSE 91; RESP 22; TEMP 36.9; O2SAT 98
[2022-08-08] MEDS: Atorvastatin Calcium 80 MG TABLET PO (19:49)
[2022-08-08] MEDS: Metoprolol Tartrate 50 MG TABLET PO (19:49)
[2022-08-08] MEDS: Torsemide 20 MG TABLET 40 MG PO (19:50)
[2022-08-08] MEDS: Docusate Sodium 100 MG CAPSULE PO (19:50)
[2022-08-08] MEDS: Insulin Glargine,Hum.rec.anlog 100 UNIT/ML 10 ML VIAL 18 UNIT SUBCUT (19:50)
[2022-08-08 20:01] LABS: Glucose, Whole Blood 119 mg/dL (60-115)
[2022-08-08] MEDS: Acetaminophen 325 MG TABLET 650 MG PO (22:11)
[2022-08-08] MEDS: Melatonin 3 MG TABLET 6 MG PO (22:44)
[2022-08-08 23:30] VITALS: BP 149/67; PULSE 77; RESP 16; TEMP 37; O2SAT 93
[2022-08-09 03:14] VITALS: BP 149/67; PULSE 73; RESP 18; TEMP 37.3; O2SAT 98
[2022-08-09 07:14] VITALS: BP 145/85; PULSE 80; RESP 16; TEMP 36.5; O2SAT 94
[2022-08-09 07:36] LABS: Glucose, Whole Blood 94 mg/dL (60-115)
[2022-08-09] MEDS: Isosorbide Mononitrate 60 MG TAB.ER.24H PO (08:02)
[2022-08-09] MEDS: Multivitamin TABLET 1 TAB PO (08:02)
[2022-08-09] MEDS: Gabapentin 300 MG CAPSULE PO (08:02)
[2022-08-09] MEDS: Metoprolol Tartrate 50 MG TABLET PO (08:02)
[2022-08-09] MEDS: Torsemide 20 MG TABLET 40 MG PO (08:02)
[2022-08-09] MEDS: 0.9 % Sodium Chloride Flush 3 ML SYRINGE IVFLUSH (08:03)
[2022-08-09] MEDS: Acetaminophen 325 MG TABLET 650 MG PO (08:06)
[2022-08-09 08:48] LABS: Anion Gap 18 (12-20); Blood Urea Nitrogen 17 mg/dL (9-16); Calcium 9.1 mg/dL (8.4-10.2); Carbon Dioxide 24 mmol/L (22-29); Chloride 99 mmol/L (96-108); Creatinine Clr Calc Pharmacy 9.5; Estimated Glomerular Filt Rate 9; Glucose Random 100 mg/dL (60-115); Potassium 3.7 mmol/L (3.3-5.1); Sodium 137 mmol/L (135-145)
--- NOTE | 2022-08-09 11:12 | P.DS_ITS ---
DS: Providers Provider Date of Service: 08/09/22 Date of admission: 08/08/22 14:31 Date of discharge: 08/09/22 Primary care physician: Unknown Physician Consults: 08/08/22 13:55 Consult to Nephrology Stat Consulting Provider: Avery Gillespie Reason for consultation: ESRD needs HD today Has provider been notified: Yes 08/08/22 14:31 Consult to Nephrology Routine Consulting Provider: Avery Gillespie Reason for consultation: ESRD on HD TTHS, needs urgent dialysis, hypoxic and hypertensive Attending physician on discharge: Kalpesh Valdes Discharging clinician: Angie Lorenzana DS: Diagnosis Discharge Diagnosis (1) Hypertensive urgency: Status: Acute DS: Summary Hospital Course Hospital Course: From H&P on the day of admission The patient is a 67 yo F with a ESRD (plus others listed below) on HD T, , S who presents to the ED for evaluation after she sustained a fall from sofa/bed while sleeping. The patient reports that she is currently living in a hotel due to issues with her home. She reports that during the night prior to admission, she must have fallen out of bed while sleeping and injured the L-side of her face including eye and nose. She developed epistaxis and yvonne-oribal swelling. She denies syncope/LOC. She reports she was in her usual state of health prior to the evening. She did mentioned that she was recovering from an URI. Initially, her plan was to go for her scheduled dialysis however, she began developing a headache and some trouble breathing and hence she presented to the ED. Of note, the pt reports that she last took her antihypertensives 5 days prior to hospitalization. Work up in the ED was negative for any acute fractures on the head/face. She was hypertensive over 200/100 and hypoxic down to 87% on RA. CXR showed mild congestive changes. She was given a nitropaste of her BP and tylenol for pain. Her case was d/w regional marketing director senior health educator and decision was made that she would need urgent dialysis. Hypertensive urgency. BP > 220/110 upon arrival. Had not taken her BP meds in 5 days. She was resumed on her baseline medications. She underwent dialysis and her blood pressure has improved. Acute respiratory failure with hypoxia. secondary to fluid overload -- flash pulm edema from HTN vs fluid overload from dialysis. she had dialysis and was able to be weaned off oxygen. She has no respiratory symptoms at this time ESRD on HD. last HD 08/08 - resume outpatient schedule for dialysis CAD s/p DAVID. aspirin was held on admission due to epistaxis. She had no further episodes. Aspirin will be resumed on discharge patient had facial bone CT due to fall prior to admission. Incidentally she was found to have Abnormal CT face with soft issue lesion and lymphadenopathy noted -- see full report for details; recommend CT neck with contrast which may be done on outpatient basis. informed the patient of this abnormal result and advised to f/u with her outpatient providers Time Spent with Patient Time attestation: Total time managing care of this patient today ____ minutes. Discharge coordination time: Greater than 30 minutes Quality: Safe Use of Opioids Does Pt have an Active Cancer Diagnosis on the Problem List?: No Quality: Stroke Does the patient have a stroke diagnosis?: No Physical Exam Vital Signs: Vital Signs: Last Vital Signs Temp 97.7 F 08/09/22 07:14 Pulse 80 08/09/22 07:14 Resp 16 08/09/22 07:14 BP 145/85 H 08/09/22 07:14 Pulse Ox 94 08/09/22 07:14 O2 Del Method 08/09/22 07:14 O2 Flow Rate 2 08/09/22 03:14 BMI result Body Mass Index 29.2 Const: General: cooperative, comfortable, no acute distress, alert and awake Nutritional Appearance: overweight Orientation/consciousness: patient oriented x3 Eyes: Other: some bruising around left eye; EOM intact Resp: Effort & Inspection: normal respiratory effort, able to speak in complete sentences, no respiratory distress and no use of accessory muscles Cardio: Rate: regular rate Heart sounds: S1 normal heart sound present and S2 normal heart sound present GI: Inspection: No distended Palpation (GI): Soft to palpation Neuro: General: patient oriented x3 and CN's II-XI intact bilaterally Extrem: General: No no pedal edema DS: Data Data Completed and Pending Completed studies during hospitalization [Text1]: Procedures Performance of Urinary Filtration, Intermittent, Less than 6 Hours Per Day (06/26/21) Labs on day of discharge: Laboratory Results - last 24 hr 08/08/22 08/08/22 08/08/22 11:24 11:28 11:28 WBC 11.9 H RBC 2.73 L Hgb 9.1 L Hct 26.8 L MCV 98.2 H MCH 33.3 H MCHC 34.0 RDW 14.9 Plt Count 166 MPV 8.6 L Immature Gran % (Auto) 0.3 Neut % (Auto) 56.4 Lymph % (Auto) 12.6 L Coke % (Auto) 6.6 Eos % (Auto) 23.8 H Baso % (Auto) 0.3 Lymph # (Auto) 1.5 Coke # (Auto) 0.8 Eos # (Auto) 2.8 H Baso # (Auto) 0.0 Abs Immat Gran (auto) 0.04 H Absolute Neuts (auto) 6.7 Absolute Nucleated RBC 0.000 Nucleated RBC % (auto) 0.0 Smear Tech's Comments VERIFIED Sodium 140 Potassium 3.5 Chloride 91 L Carbon Dioxide 30 H Anion Gap 23 H BUN 38 H Creatinine 7.96 H* Estim Creat Clear Calc 6.1 Estimated GFR 5 POC Glucose Random Glucose 164 H Calcium 9.1 Magnesium 2.3 Total Bilirubin 0.7 Direct Bilirubin 0.2 AST 22 ALT 22 Alkaline Phosphatase 88 Total Protein 7.8 Albumin 4.0 COVID-19 ([facility]) Negative COVID-19 Clin Com See Note 08/08/22 08/09/22 08/09/22 19:50 06:59 07:58 WBC RBC Hgb Hct MCV MCH MCHC RDW Plt Count MPV Immature Gran % (Auto) Neut % (Auto) Lymph % (Auto) Coke % (Auto) Eos % (Auto) Baso % (Auto) Lymph # (Auto) Coke # (Auto) Eos # (Auto) Baso # (Auto) Abs Immat Gran (auto) Absolute Neuts (auto) Absolute Nucleated RBC Nucleated RBC % (auto) Smear Tech's Comments Sodium 137 Potassium 3.7 Chloride 99 Carbon Dioxide 24 Anion Gap 18 BUN 17 H Creatinine 4.93 H* Estim Creat Clear Calc 9.5 Estimated GFR 9 POC Glucose 119 H 94 Random Glucose 100 Calcium 9.1 Magnesium Total Bilirubin Direct Bilirubin AST ALT Alkaline Phosphatase Total Protein Albumin COVID-19 ([facility]) COVID-[address] scan - head: Radiologist's impression: ITS Impressions Cervical Spine CT 08/08/22 12:09 IMPRESSION: Negative acute noncontrast CT of the brain. No fracture or dislocation of the cervical spine. No facial bone fracture. Note is made of a soft tissue lesion associated with the left cheek and some prominent neck adenopathy pathologically enlarged. This may be reactive. Underlying malignancy of course cannot be excluded. Correlation recommended clinically. Recommend contrast enhanced CT neck for full evaluation. This may be done on an outpatient basis. Face CT 08/08/22 12:09 IMPRESSION: Negative acute noncontrast CT of the brain. No fracture or dislocation of the cervical spine. No facial bone fracture. Note is made of a soft tissue lesion associated with the left cheek and some prominent neck adenopathy pathologically enlarged. This may be reactive. Underlying malignancy of course cannot be excluded. Correlation recommended clinically. Recommend contrast enhanced CT neck for full evaluation. This may be done on an outpatient basis. Head CT 08/08/22 12:09 IMPRESSION: Negative acute noncontrast CT of the brain. No fracture or dislocation of the cervical spine. No facial bone fracture. Note is made of a soft tissue lesion associated with the left cheek and some prominent neck adenopathy pathologically enlarged. This may be reactive. Underlying malignancy of course cannot be excluded. Correlation recommended clinically. Recommend contrast enhanced CT neck for full evaluation. This may be done on an outpatient basis. Chest X-Ray 08/08/22 12:41 IMPRESSION: Overall interval improvement with decreased markings at the left lung base. Mild residual markings could represent mild central congestion/atelectasis. Discharge Plan Discharge Anticipated Discharge Date/Time: 08/09/22 10:37 Patient Disposition: Home, Self-Care Discharge Diagnosis: hypertensive urgency Referrals: Physician,Unknown J [Physician] - 1 Week Discharge Medications: Continued metoprolol tartrate 100 mg tablet 50 mg PO BID insulin glargine [Lantus Solostar U-100 Insulin] 100 unit/mL (3 mL) insulin pen 18 unit subcut BEDTIME docusate sodium 100 mg capsule 100 mg PO BEDTIME torsemide 20 mg tablet 2 tab PO BID gabapentin 300 mg capsule 1 cap PO DAILY midodrine 10 mg tablet 10 - 20 mg PO TUTHSA Centrum Silver Women 8 mg iron-400 mcg-300 mcg Tablet 1 tab PO DAILY aspirin 81 mg Tablet,Delayed Release (Dr/Ec) 81 mg PO DAILY atorvastatin 80 mg tablet 80 mg PO BEDTIME Nephro-Gemini 0.8 mg tablet 1 tab PO DAILY omega-3 fatty acids Capsule 1,000 mg PO DAILY isosorbide mononitrate 60 mg tablet extended release 24 hr 60 mg PO DAILY Discharge Orders: Discharge Order (Routine); Ordered 08/09/22 Ordered By: Angie Lorenzana Activity on Discharge: As tolerated Stand Alone Forms: Patient Portal Discharge page Care Plan Goals: see below Health Concerns: elevated blood pressure Plan of Treatment: please take all medications as prescribed continue usual schedule of dialysis call to schedule follow up with PCP as needed soft issue lesion and lymphadenopathy noted -- see full report for details; recommend CT neck with contrast which may be done on outpatient basis- discuss with PCP Assessment: see discharge summary Discharge Date/Time: 08/09/22 12:02
[2022-08-09] MEDS: Loperamide HCl 2 MG CAPSULE PO (11:18)
--- NOTE | 2022-08-09 11:56 | MHC.CM.PN ---
[place] [facility] [place] [facility]
== END 2022-08-09 12:02 | disposition home or self-care (01) | DRG 640 ==
LOC: HO.ED 14:00 → HO.EDOVER 14:37 → HO.IMC 16:50
PROVIDERS: Physician Assistant; Admitting Provider Family Medicine; Emergency Provider Emergency Medicine; PCP Internal Medicine; Visit Provider Physician Assistant Medical
DX: E87.70 Fluid overload, unspecified (principal); J96.01 Acute respiratory failure with hypoxia; N18.6 End stage renal disease; I12.0 Hypertensive chronic kidney disease with stage 5 chronic kidney disease or end stage renal disease; I16.0 Hypertensive urgency; D63.1 Anemia in chronic kidney disease; Z95.5 Presence of coronary angioplasty implant and graft; I25.10 Atherosclerotic heart disease of native coronary artery without angina pectoris; R04.0 Epistaxis; E11.22 Type 2 diabetes mellitus with diabetic chronic kidney disease; R93.0 Abnormal findings on diagnostic imaging of skull and head, not elsewhere classified; E78.5 Hyperlipidemia, unspecified; Z91.15 Patient's noncompliance with renal dialysis; Z91.14 Patient's other noncompliance with medication regimen; Z99.2 Dependence on renal dialysis; Z79.4 Long term (current) use of insulin; Z79.82 Long term (current) use of aspirin; Z79.899 Other long term (current) drug therapy
CPT/HCPCS: 36415; 70450; 70486; 71045; 72125; 80048; 80076; 82947; 83735; 85025; 87635; 90999; 93005; 99222; 99285

== ENCOUNTER → 2022-10-11 13:40 | Outpatient (BNVA) | payer OTHER, MEDICARE, SELFPAY | PROVIDERS: PCP Internal Medicine; Referring Provider Internal Medicine; Visit Provider Nurse Practitioner Family | DX: Z13.89 Encounter for screening for other disorder (principal) ==

== ENCOUNTER → 2022-11-06 12:52 | Outpatient (REF) | payer OTHER, MEDICARE, SELFPAY ==
--- NOTE | 2022-11-06 12:57 | CA_ITS ---
Transthoracic Echocardiogram Patient (Last, First, Middle): Shy Ryan M Gender: Female Date of : 1955 Age: 67 Procedure Date: 11/06/2022 Procedure Type: Transthoracic Echocardiogram Location: OP Height: 147.32 cm Weight: 67.59 kg BSA: 1.61 m2 Heart Rate: 67 bpm BP: 136 / 78 mmHg Field Representative: SB Referring MD: Leena Nagy MEDICAL HOUSEKEEPERDimitri Symptoms: I25.10 - Atherosclerotic heart disease of [place] coronary artery without... Study Quality: Adequate w contrast ECG Rhythm: Sinus Conclusions: - The left ventricular systolic function is normal. The calculated ejection fraction is 69% by biplane method. - The basal inferior segment is hypokinetic. - No obvious valvular pathology seen on this study. Findings Procedure Information Contrast agent, definity, is being given per protocol without apparent complications. Left Ventricle Normal left ventricular cavity size. There is normal left ventricular wall thickness. The left ventricular systolic function is normal. The calculated ejection fraction is 69% by biplane method. Diastolic function is normal for age. Wall Motion Rest Echo Findings The basal inferior segment is hypokinetic. Right Ventricle Normal right ventricular cavity size and systolic function. Atria Both atria are normal in size. Aortic Valve There is a normal trileaflet aortic valve. There is mild calcification of the aortic valve. There is no aortic valve stenosis. There is no aortic valve regurgitation. Mitral Valve The mitral valve appears normal. There is mild mitral annular calcification. There is no mitral valve regurgitation. There is no mitral valve stenosis. Pulmonic Valve The pulmonic valve is likely normal. Tricuspid Valve Normal tricuspid valve structure. There is no tricuspid valve regurgitation. Tricuspid regurgitation envelope is inadequate for calculation of right ventricular systolic pressure. Great Vessels The asc aorta is normal in size. Small plaque is seen in the sino tubular ridge. Venous The inferior vena cava is normal in size and collapses greater than 50% with inspiration. Pericardium/Pleural There is no evidence of pericardial effusion. Prior Study Comparison No significant change compared to prior study dated: 01/28/2020. Recommendations, Care & Conclusions No obvious valvular pathology seen on this study. Measurements 2D Linear Measurements IVSd: 0.92 0.6-0.9/0.6-1.0 cm LVIDd: 4.87 3.9-5.3/4.2-5.9 cm LVIDd Index: 3.02 2.4-3.2/2.2-3.1 cm/m2 LVIDs: 3.50 2.0-3.6 cm LVPWd: 0.79 0.7-1.1 cm Ao Root: 2.50 2.1-3.5 cm LA Diam: 3.90 2.7-3.8/3.0-4.0 cm LAIDs Index: 2.42 1.5-2.3 cm/m2 LV Mass: 176.16 67-162/88-224 g LV Mass Index: 109.42 43-95/49-115 g/m2 LVOT Diam: 2.00 3.0+(-)1.3 cm 2D Systolic Function EF 4C: 69.10 >55% EF 2C: 68.90 >55% EF BiP: 68.80 >55% Mitral Valve MV Pk E: 1.41 MV PK A: 1.23 MV Decel Time: 205.00 E/A: 1.10 E'Lateral: 6.09 E'Medial: 5.98 E/E' Med: 23.60 E/E' Lat: 23.20 PHT: 60.00 MVA PHT: 3.67 Decel Travis: 6.90 Aortic Valve AoV Pk Mitch: 1.88 AoV Mn Mitch: 1.32 AoV VTI: 0.46 AoV Pk Grad: 14.00 Aov Mn Grad: 8.00 DALTON Cont.VTI: 1.71 LVOT LVOT Pk Mitch: 1.04 LVOT Mn Mitch: 0.74 LVOT VTI: 0.25 LVOT Pk Grad: 4.00 LVOT Mn Grad: 2.00 LVOT Diam: 2.00 LVOT Area: 3.14 Diastolic Function MV Pk E: 1.41 MV Pk A: 1.23 E/A: 1.10 E'Medial: 5.98 E/E' Med: 23.60 E' Laterial: 6.09 E/E' Lat: 23.20 Right Ventricle TAPSE (mm): 19.80 TVS' Mitch: 10.10 Tricuspid Valve RA Press: 3.00 Great Vessels Aorta Ao Root-2D: 2.50 2.0-3.7 cm Sinus of Valsalva: 2.50 2.0-3.5 cm Ao Asc: 3.10 2.1-3.4 cm Pulmonary Veins Pulm Vein S/D 1.30 Pulmonary Valve PV Pk Mitch: 0.92 Peak PV Grad: 3.00 Updated in Other Vendor System with Status of Final Rico Dubose MD electronically signed on 11/08/2022 11:21:47 AM with status of Final
== END ==
LOC: HO.CARD 12:52
PROVIDERS: Absent Provider Internal Medicine Nephrology; PCP Internal Medicine; Referring Provider Internal Medicine Nephrology; Visit Provider Nurse Practitioner Family
DX: Z01.810 Encounter for preprocedural cardiovascular examination (principal); I25.10 Atherosclerotic heart disease of native coronary artery without angina pectoris
CPT/HCPCS: 93306; Q9957